=== PATIENT | male | born 1930 | race Caucasian/White ===

== ENCOUNTER 2016-08-15 12:09 | Observation (INO) ==
--- NOTE | 2016-08-15 12:31 | Emergency Department Note ---
Disposition Clinical Impression: AICD discharge Disposition: Admitted As Inpatient Condition: Good [facility]errals: [facility]Primary Care Provider[facility] - Forms: ED Satisfaction Letter Time of Disposition: 13:45 Chest Pain HPI - General Chief Complaint: ED Chest Pain Stated Complaint: AICD FIRED Time Seen by Provider: 08/15/16 12:14 Source: patient Mode of arrival: ambulatory Limitations: no limitations Vital Signs Reviewed: Yes Nursing Notes Reviewed: Yes - History of Present Illness HPI Narrative: 86 year old male with a pacemaker for the past one year due to irregular cardiac rhythms states that today he was moving mulch around and started to feel a shock in his chest ,"like he walked into 110V." Nargis said it shocked him 3 times without any symptoms of chest pain or shortness of breath. Nargis state this is a first time occurance and currently he is asymptomatic. He was first evaluated at the [facility] and had a heart rate of 130s in atrial fibrillation and a blood pressure that is 150/100s. Nargis denies nausea, vomitting, abdominal pain, or fevers. Denies chest pain and shortness of breath at this time. He states that there did not appear to be an inciting factors before he felt the shock in his chest. No preceding symptoms. Severity scale (1-10): 0 - Related Data Home Medications Medication Instructions Recorded Confirmed Allopurinol [Zyloprim] 100 mg PO DAILY 03/29/15 03/29/15 Ammonium Lactate 1 appl TP BID 03/29/15 03/29/15 Furosemide [Lasix] 40 - 80 mg PO DAILY PRN 03/29/15 03/29/15 Gabapentin [Neurontin] 300 mg PO TID 03/29/15 03/29/15 Gluc/Heladio-MSM#1/C/Hans/Leonidas/Bor 1 tab PO BID 03/29/15 03/29/15 [Osteo Bi-Flex Caplet] Lisinopril [Zestril] 40 mg PO DAILY 03/29/15 03/29/15 Metoprolol XL (24 HR) Succ [Toprol 25 mg PO DAILY 03/29/15 03/29/15 XL] Potassium Chloride 20 meq PO DAILY 03/29/15 03/29/15 Pravastatin Sodium [Pravachol] 20 mg PO QPM 03/29/15 03/29/15 Saw [place] Xtr/Zinc Picolin [Saw 1 cap PO DAILY 03/29/15 03/29/15 [place] Capsule] Tolterodine Tartrate [Detrol] 4 mg PO DAILY 03/29/15 03/29/15 Warfarin [Coumadin] 4 mg PO AD PRN 03/29/15 03/29/15 Warfarin [Coumadin] 6 mg PO QTUTH PRN 03/29/15 03/29/15 Allergies Allergy/AdvReac Type Severity Reaction Status Date / Time No Known Allergies Allergy Verified 07/30/16 15:00 Constitutional: Reports: as per HPI. Denies: fever, chills, weakness, weight change Eyes: Denies: eye pain, vision change ENT ED: Denies: ear pain, throat pain, dental pain, epistaxis, congestion Cardiovascular: Reports: as per HPI. Denies: chest pain, palpitations, dyspnea on exertion, syncope Respiratory: Denies: cough, dyspnea, wheezes, hemoptysis Gastrointestinal: Denies: abdominal pain, nausea, vomiting, diarrhea, constipation, hematemesis, melena Genitourinary: Denies: urgency, dysuria, frequency, hematuria Musculoskeletal: Denies: back pain, neck pain, arthralgia, myalgia Integumentary: Denies: rash, abrasion, lesions Neurological: Denies: headache, weakness, numbness, paresthesias, confusion, abnormal gait, vertigo Psychiatric: Denies: anxiety, depression, suicidal thoughts, homicidal thoughts , auditory hallucinations, visual hallucinations Chest Pain PMH - Past Medical History Medical history: Reports: atrial fibrillation, CHF, hypertension, renal disease Psychiatric history: Reports: no psych history - Social History Smoking Status: Former smoker Alcohol use: Reports: none Drug use: Reports: none Physical Exam - General Limitations: no limitations General appearance: alert, appears intoxicated - Head Head exam: atraumatic, normocephalic, normal inspection - Eye Eye exam: Present: normal appearance, PERRL, EOMI - Expanded Eye Exam Pupils: Left: reactive - ENT ENT exam: normal exam, normal oropharynx, mucous membranes moist - Expanded ENT Exam External ear exam: Present: normal external inspection Mouth exam: Present: normal external inspection Teeth exam: Present: normal inspection Throat exam: Present: normal inspection - Neck Neck exam: Present: normal inspection, full ROM, trachea midline - Chest Chest inspection: Present: normal inspection, symmetric chest wall rise - Respiratory Respiratory exam: Present: normal lung sounds bilaterally - Cardiovascular Cardiovascular exam: Present: normal rhythm, tachycardia, irregular rhythm, normal heart sounds - Abdominal Exam Abdominal exam: Present: soft, Non-Tender. Absent: tenderness, distention, guarding, rebound, rigidity - Extremities Exam Extremities exam: Present: normal inspection, full ROM. Absent: tenderness, pedal edema - Expanded Upper Extremity Exam Shoulder exam: Present: normal inspection, full ROM Arm exam: Present: normal inspection, full ROM Elbow exam: Present: normal inspection, full ROM Forearm/Wrist exam: Present: normal inspection, full ROM Hand exam: Present: normal inspection, full ROM Vascular exam: Normal: capillary refill, radial pulse - Expanded Lower Extremity Exam Hip/Pelvis exam: Present: normal inspection, full ROM Upper leg exam: Present: normal inspection, full ROM Knee exam: Present: normal inspection, full ROM Lower leg exam: Present: normal inspection, full ROM Ankle exam: Present: normal inspection, full ROM Foot/toe exam: Present: normal inspection, full ROM Neurovascular/Tendon exam: Absent: motor deficit, sensory deficit, tendon deficit - Back Exam Back exam: Present: normal inspection, full ROM. Absent: tenderness - Neurological Exam Neurological exam: Present: alert, oriented X3 - Expanded Neurological Exam Patient oriented to: Present: person, place, time Speech: Present: fluid speech Cranial nerves: EOM function (II, III, IV, ): Normal, facial sensation (V): Normal, facial palsy (VII): Normal, gag reflex (IX): Normal, tongue deviation ( XII): Normal Cerebellar function: normal gait Motor strength - LUE: 4/5 Motor strength - RUE: 4/5 Motor strength - LLE: 4/5 Motor strength - RLE: 4/5 Coma Scale Eye Opening: Spontaneous Coma Scale Motor Response: Obeys Commands Coma Scale Verbal Response: Oriented Coma Scale Total: 15 - Psychiatric Psychiatric exam: Present: normal affect, normal mood - Skin Skin exam: Present: warm, dry, intact, normal color Course Course Narrative: we will do a focused cardiac exam in addition to doing a med[employer] interoogation. - Reevaluation(s) Reevaluation #1: we cannot interrogate his pacemaker because it sis not a [employer] or [employer] pacemaker. WE will call the [facility] field sales consultant. Time: 12:35 Reevaluation #2: after interviewing the family. It appears patient is alwasy in atrial fibrillation and has a hr 90-110s. It appears the actual reason for his pacemaker is due to epsiodes of Vtach one year ago. His serials librarian is in [place]. Patient is asymptomatic at this time we are calling the [employer] rep. Time: 12:48 Reevaluation #3: we will consult cards about possible admission to hospital and whether we should start amniodarone or cardizem for rate control and/or prevention of Vtach runs. Time: 13:13 - Consultations Consultation #1: Dr. Suazo has accepted patient after consultation with cards. 2N please Time: 13:44 Consultation #2: discussed case with Dr. Pack and he would like patient started back on his home dose of meotroplol for therapy. Patinet will be admitted to medicine. Patinet and family are agreeable to plan. Stable. Time: 13:45 Vital Signs Temperature 98 F 08/15/16 12:12 Pulse Rate 117 08/15/16 12:12 Respiratory Rate 18 08/15/16 12:12 Blood Pressure 167/122 08/15/16 12:12 O2 Sat by Pulse Oximetry 100 08/15/16 12:12 Temperature 98 F 08/15/16 12:12 Pulse Rate 106 08/15/16 13:05 Respiratory Rate 18 08/15/16 13:05 Blood Pressure 154/98 08/15/16 13:05 O2 Sat by Pulse Oximetry 99 08/15/16 13:05 Oxygen Delivery Oxygen Delivery Room Air Chest Pain - Lab Data Lab Results 08/15/16 08/15/16 Range/Units 12:22 12:22 PT 14.0 H (9.4-12.1) Seconds INR 1.3 Troponin I 0.02 (0-0.03) ng/mL - EKG Data EKG attestation: Yes I reviewed and interpreted this EKG. EKG results narrative: atrial fibrillation with rate of 115. No STEMI. 1232
[2016-08-15 12:35] LABS: INR 1.3
--- NOTE | 2016-08-15 13:46 | Emergency Department Note ---
Disposition Clinical Impression: AICD discharge Disposition: Admitted As Inpatient Condition: Good General Adult HPI - General Chief complaint: ED Chest Pain Stated complaint: AICD FIRED Time Seen by Provider: 08/15/16 12:14 Source: patient Mode of arrival: ambulatory Limitations: no limitations - History of Present Illness Pain Scale: 0 - Related Data Home Medications Medication Instructions Recorded Confirmed Allopurinol [Zyloprim] 100 mg PO DAILY 03/29/15 08/15/16 Ammonium Lactate 1 appl TP BID 03/29/15 08/15/16 Furosemide [Lasix] 40 - 80 mg PO DAILY PRN 03/29/15 08/15/16 Gabapentin [Neurontin] 300 mg PO TID 03/29/15 08/15/16 Gluc/Heladio-MSM#1/C/Hans/Leonidas/Bor 1 tab PO BID 03/29/15 08/15/16 [Osteo Bi-Flex Caplet] Lisinopril [Zestril] 40 mg PO DAILY 03/29/15 08/15/16 Potassium Chloride 20 meq PO DAILY 03/29/15 08/15/16 Pravastatin Sodium [Pravachol] 40 mg PO QPM 03/29/15 08/15/16 Saw [place] Xtr/Zinc Picolin [Saw 1 cap PO DAILY 03/29/15 08/15/16 [place] Capsule] Tolterodine Tartrate [Detrol] 4 mg PO DAILY 03/29/15 08/15/16 Warfarin [Coumadin] 4 mg PO SUMOWEFRSA 03/29/15 08/15/16 Warfarin [Coumadin] 6 mg PO QTUTH 03/29/15 08/15/16 Aspirin/Calcium Carbonate/Mag 325 mg PO DAILY 08/15/16 08/15/16 [Aspirin Buffered 325 mg Tab] Gentamicin Oint [Garamycin] 1 appl TP BID 08/15/16 08/15/16 Hydroxyzine HCl [Hydroxyzine HCl] 25 mg PO TID 08/15/16 08/15/16 Melatonin/Pyridoxine HCl (B6) 3 mg PO HS 08/15/16 08/15/16 [Melatonin 3 mg Tablet] Metoprolol XL (24 HR) Succ [Toprol 100 mg PO BID 08/15/16 08/15/16 XL] Pantoprazole Sodium [Protonix] 40 mg PO DAILY 08/15/16 08/15/16 Allergies Allergy/AdvReac Type Severity Reaction Status Date / Time No Known Allergies Allergy Verified 07/30/16 15:00 Constitutional: Reports: as per HPI. Denies: fever, chills, weakness, weight change Eyes: Denies: eye pain, vision change ENT ED: Denies: ear pain, throat pain, dental pain, epistaxis, congestion Cardiovascular: Reports: as per HPI. Denies: chest pain, palpitations, dyspnea on exertion, syncope Respiratory: Denies: cough, dyspnea, wheezes, hemoptysis Gastrointestinal: Denies: abdominal pain, nausea, vomiting, diarrhea, constipation, hematemesis, melena Genitourinary: Denies: urgency, dysuria, frequency, hematuria Musculoskeletal: Denies: back pain, neck pain, arthralgia, myalgia Integumentary: Denies: rash, abrasion, lesions Neurological: Denies: headache, weakness, numbness, paresthesias, confusion, abnormal gait, vertigo Psychiatric: Denies: anxiety, depression, suicidal thoughts, homicidal thoughts , auditory hallucinations, visual hallucinations Past Medical History - Past Medical History Medical history: Reports: atrial fibrillation, CHF, hypertension, renal disease Psychiatric history: Reports: no psych history - Social History Smoking Status: Former smoker Smokeless Tobacco Status: No Alcohol use: Reports: none Drug use: Reports: none Physical Exam - General Limitations: no limitations General appearance: alert, appears intoxicated Course Vital Signs Temperature 98 F 08/15/16 12:12 Pulse Rate 117 08/15/16 12:12 Respiratory Rate 18 08/15/16 12:12 Blood Pressure 167/122 08/15/16 12:12 O2 Sat by Pulse Oximetry 100 08/15/16 12:12 Temperature 97.7 F 08/15/16 15:41 Pulse Rate 108 08/15/16 15:41 Respiratory Rate 16 08/15/16 15:41 Blood Pressure 190/97 08/15/16 15:41 O2 Sat by Pulse Oximetry 100 08/15/16 15:41 Oxygen Delivery Oxygen Delivery Room Air Medical Decision Making - Lab Data Result diagrams: 08/15/16 15:57 Lab Results 08/15/16 08/15/16 Range/Units 12:22 12:22 PT 14.0 H (9.4-12.1) Seconds INR 1.3 Troponin I 0.02 (0-0.03) ng/mL Attestation Statement - Attestation Attestation: I examined this patient and my medical decision-making was reviewed with the [employer] PANELBOARD OPERATOR/PA/Advanced Practice Nurse/Resident Physician. I agree with the documented findings, disposition and treatment plan as described except to the extent set forth below. [id number] time provided Patient presents as a transfer from the [facility] after his AICD fired on 3 occasions. No reports of chest pain. Patient appears in no acute distress. EKG reviewed by me. The patient has a [employer] pacemaker which will require interrogation. The patient will be admitted to the medicine service. We did consult cardiology Dr. Pack who agrees to evaluate the patient after admission
[2016-08-15] MEDS ORDERED: Metoprolol XL (24 HR) Succ 25 MG TAB.ER.24H PO SCH (14:00)
[2016-08-15] MEDS ORDERED: Naloxone 0.4 MG/ML INJ IVP PRN (14:58)
--- NOTE | 2016-08-15 15:13 | Internal Med History&Physical ---
Date of Encounter: 08/15/16 Time of Encounter: 15:07 Assessment and Plan (1) AICD discharge Current visit: Yes Status: Acute Patient reports his AICD fired 3 times today as he was pushing a wheelbarrow full of mulch. He was scheduled for an EGD today and had not eaten since midnight, but reports he took all of his medications as scheduled. He denies any preceding lightheadedness, chest pain, palpitations. Continuous manager cardiac cath [employer] contacted for interrogation of pacemaker/AICD, they will be onsite tomorrow for interrogation. Cardiology consulted (2) Afib Current visit: Yes Status: Chronic Patient with chronic atrial fibrillation, EKG shows Afib with HR of 110s. Patient had a GID bleed in March and has been holding Coumadin since then. He is on Metoprolol 100mg BID for rate control. Continue home dose of metoprolol Continuous manager cardiac cath Cardiology consulted. Qualifiers: Atrial fibrillation type: unspecified Qualified Code(s): I48.91 - Unspecified atrial fibrillation (3) Hypertension Current visit: Yes Status: Acute Patient's blood pressure running high since arrival. Hold lisinopril and lasix for kidney function. Continue home dose of metoprolol. Hydralazine 10mg IVP Q6h PRN for SBP > 180 or DBP > 100. Qualifiers: Hypertension type: essential hypertension Qualified Code(s): I10 - Essential (primary) hypertension (4) Hypokalemia Current visit: Yes Status: Acute Potassium of 3.4. 20mEq of POtassium IVP ordered. Recheck chemistry at 8pm. (5) DVT prophylaxis Current visit: Yes Status: Acute Ambulate with assistance sequential compression devices Patient had recent GI bleed in March, anti-coagulation is contraindicated. Internal Medicine - H&P: HPI Chief complaint: AICD fired Admitted From: Emergency Dept Plans for Post Hospital Care: Home History of present illness: Mr. Castanon is a 86 year old male attention, CAD, hyperlipidemia, COPD, CHF, atrial fibrillation with pacemaker AICD who presented to the emergency department today from the [place] [facility] after his AICD fired 3 times. Patient reports he was outside pushing a wheelbarrow full of mulch when he felt an electric shock 3 times. He reports he thought he stepped on an electrical wire. He did not feel any lightheadedness or syncope, chest pain, or palpitations prior to the firing of the AICD. He also felt fine without symptoms after the firing of the AICD as well. Evaluation at the [place] included a troponin which was negative at 0.02. EKG showed atrial fibrillation with heart rate of 115. Chest x-ray showed stable cardiomegaly with no acute pulmonary disease. [facility] contacted [facility] for interrogation of the pacemaker, they will be onsite tomorrow to interrogate the pacemaker. Cardiology was consulted and patient was given 25 mg of metoprolol. On exam, patient is alert and oriented, in no acute distress. Heart has a regular tachycardic rhythm. Lungs are clear bilaterally to auscultation. Past Med Surg Social Fam HX - Past Medical History Medical history: atrial fibrillation, CHF, COPD, GI bleed, hyperlipidemia, hypertension, renal disease Psychiatric history: no psych history - Past Surgical History Surgical History: knee replacement, pacemaker/AICD - Social History Smoking Status: Former smoker (remote - 7 pack year history) Smokeless Tobacco Status: No Alcohol use: none Drug use: none - Family History Mother Living Status: Age at : 84 Cause of : [place] Father Living Status: Age at : 94 Cause of : [place] Internal Medicine - H&P: Meds Allopurinol [Zyloprim] 100 mg PO DAILY 03/29/15 [History] Ammonium Lactate 1 appl TP BID 03/29/15 [History] Furosemide [Lasix] 40 - 80 mg PO DAILY PRN 03/29/15 [History] Gabapentin [Neurontin] 300 mg PO TID 03/29/15 [History] Gluc/Heladio-MSM#1/C/Hans/Leonidas/Bor [Osteo Bi-Flex Caplet] 1 tab PO BID 03/29/15 [ History] Lisinopril [Zestril] 40 mg PO DAILY 03/29/15 [History] Potassium Chloride 20 meq PO DAILY 03/29/15 [History] Pravastatin Sodium [Pravachol] 40 mg PO QPM 03/29/15 [History] Saw [place] Xtr/Zinc Picolin [Saw [place] Capsule] 1 cap PO DAILY 03/29/15 [ History] Tolterodine Tartrate [Detrol] 4 mg PO DAILY 03/29/15 [History] Warfarin [Coumadin] 4 mg PO SUMOWEFRSA 03/29/15 [History] Warfarin [Coumadin] 6 mg PO QTUTH 03/29/15 [History] Aspirin/Calcium Carbonate/Mag [Aspirin Buffered 325 mg Tab] 325 mg PO DAILY [History] Gentamicin Oint [Garamycin] 1 appl TP BID 08/15/16 [History] Hydroxyzine HCl [Hydroxyzine HCl] 25 mg PO TID 08/15/16 [History] Melatonin/Pyridoxine HCl (B6) [Melatonin 3 mg Tablet] 3 mg PO HS 08/15/16 [ History] Metoprolol XL (24 HR) Succ [Toprol XL] 100 mg PO BID 08/15/16 [History] Pantoprazole Sodium [Protonix] 40 mg PO DAILY 08/15/16 [History] Allergies No Known Allergies Allergy (Verified 07/30/16 15:00) All Systems PM: A 10-system review of systems was performed and is negative for pertinent findings except as documented above in the HPI. - Constitutional Constitutional: no chills, no fever(s), no night sweats - EENT Eyes: no change in vision, no discharge, no pain, no photophobia Ears: no ear discharge, no ear pain, no tinnitus Nose, mouth and throat: no dysphagia, no nasal discharge, no neck pain, no sore throat - Cardiovascular Cardiovascular ROS IM: no chest pain, no diaphoresis, no dyspnea, no lightheadedness, no palpitations, no syncope - Respiratory Respiratory: no cough, no dyspnea, no wheezing, no excessive phlegm production - Gastrointestinal Gastrointestinal: no abdominal pain, no diarrhea, no hematemesis, no hematochezia, no melena, no nausea, no vomiting - Musculoskeletal Musculoskeletal ROS IM: no numbness, no tingling - Integumentary Integumentary IM: no rash, no unusual bruising - Neurological Neurological ROS: no confusion, no convulsions, no focal weakness, no numbness, no tingling, no tremor(s) - Hematologic/Lymphatic Hematologic/Lymphatic: no easy bruising - Constitutional Vitals: Temp Pulse Resp BP Pulse Ox 98 F 106 18 154/98 99 08/15/16 12:12 08/15/16 13:05 08/15/16 13:05 08/15/16 13:05 08/15/16 13:05 General appearance: Present: A&O X 3, pleasant, no acute distress - Head Head exam: Present: atraumatic, normocephalic - Eye Eye exam: Present: PERRL, conjuntiva pink, sclera anicteric Pupils: Present: PERRL - Neck Neck exam general surgery: Present: supple, trachea midline. Absent: lymphadenopathy - Respiratory Respiratory exam: Present: CTAB. Absent: accessory muscle use, rales, rhonchi, wheezes - Cardiovascular Cardiovascular exam: Present: irregular rhythm, +S1, +S2, tachycardia. Absent: diastolic murmur, gallop, rubs, systolic murmur - GI/Abdominal GI/Abdominal exam: Present: normal bowel sounds, soft, no peritoneal signs. Absent: distended, tenderness - Extremities Exam Extremities exam: Present: warm, radial pulses palpable and symetrical. Absent : calf tenderness, cyanotic, pedal edema - Neurological Exam Neurological exam: Present: CN II-XII intact, oriented X3, no focal deficits. Absent: facial droop, speech deficit - Skin Skin exam: Present: dry, intact Internal Med - H&P Results - Labs CBC & Chem 7: 08/15/16 15:57 Labs: Labs from [place]: WBC 8.6 Hgb 10.4 Hct 34.7 Plt 173 All Lab Results (24 Hours) 08/15/16 08/15/16 Range/Units 12:22 12:22 PT 14.0 H (9.4-12.1) Seconds INR 1.3 Troponin I 0.02 (0-0.03) ng/mL - Diagnostic Studies Chest x-ray Additional comments: CXR from [place]: Impression: Stable cardiomegaly, No acute pulmonary disease
--- NOTE | 2016-08-15 15:25 | Cardiology Consult Note ---
Date of Encounter: 08/15/16 Time of Encounter: 15:30 Assessment and Plan (1) AICD discharge Current Visit: Yes Status: Acute Per Cardiology: Reported ICD discharge 3. St. Gianfranco device interrogation pending this evening. Troponin negative 1. Labs reviewed from [facility] with no results noted for magnesium or potassium-- currently pending. Recommend replace if needed to keep potassium greater than 4.0 and magnesium greater than 2.0. Of note earlier, this month patient was hypokalemic with potassium 3.3. Check TSH. Patient reports compliance with beta israel and has not missed any doses. Now on beta israel per primary service-- Toprolx XL 100mg PO BID and Toprol XL 25mg PO daily-- will stop the 25mg dose and give one time dose 25mg (HR 100's and SBP 150's). Reported left heart catheterization about one year ago in setting of V. tach prior to pacemaker and ICD insertion at the [facility] ([facility]). Will attempt to obtain medical records for further review. We'll check echocardiogram. (2) Afib Current Visit: Yes Status: Chronic Per Cardiology: Known history of A. fib, presumed persistent. Now A. fib with RVR in the 100s to 110s. Systolic blood pressure in the 150s. BB resumed with one time dose now. Qualifiers: Atrial fibrillation type: unspecified Qualified Code(s): I48.91 - Unspecified atrial fibrillation (3) Anemia Current Visit: Yes Status: Acute Per Cardiology: Patient with recent anemia in setting of GI bleed. Previously on Coumadin; discontinued March 2016 by the [facility]. Had pending EGD reevaluation scheduled this afternoon. Patient and family aware of increased stroke risk at this time off Coumadin. Consider addition of aspirin if able. Consider resumption of anticoagulation once further GI evaluation completed. Qualifiers: Anemia type: unspecified type Qualified Code(s): D64.9 - Anemia, unspecified Discussion w patient/family: The assessment and plan as outlined above was discussed with the patient and/or family members who expressed understanding and agreement. All questions were answered. Thank you for involving us in the care of your patient. Please call with any questions. Discussed and reviewed with Dr. Pack. History of Present Illness Consult date: 08/15/16 Requesting physician: Tisha Dior Consult reason: ICD Shocks x 3 Chief complaint: ICD shock History of present illness: Previous records reviewed: "Mr. Castanon is a 86 year old male attention, CAD, hyperlipidemia, COPD, CHF, atrial fibrillation with pacemaker AICD who presented to the emergency department today from the [facility] after his AICD fired 3 times. Patient reports he was outside pushing a wheelbarrow full of mulch when he felt an electric shock 3 times. He reports he thought he stepped on an electrical wire. He did not feel any lightheadedness or syncope, chest pain, or palpitations prior to the firing of the AICD. He also felt fine without symptoms after the firing of the AICD as well. Evaluation at the [facility] included a troponin which was negative at 0.02. EKG showed atrial fibrillation with heart rate of 115. Chest x-ray showed stable cardiomegaly with no acute pulmonary disease". Cardiology consult for ICD shock 3. Patient seen in ER with and daughter who confirm episodes noted above. They report about one year ago patient was wearing Holter due to syncope and was found to have V. tach. Reportedly had left heart catheterization at [facility] with no significant blockages and subsequent insertion of pacemaker/ ICD (St. Gianfranco). Prior to today patient denies any previous ICD shocks. He denies any chest pain, shortness of breath, palpitations, dizziness, syncope, falls. Also, prior to this event he denies any recent fever, chills, nausea, vomiting, diarrhea or cough. Denies any current bleeding or blood loss, however was noted to be anemic in March 2016 in the status post EGD with subsequent discontinuation of Coumadin. Patient was actually supposed to have repeat EGD today for reevaluation. Past Med Surg Social Fam HX - Past Medical History Attestation: Yes The following information was validated with the patient. Source: patient, old records reviewed, obtained from family Medical history: atrial fibrillation, CHF, COPD, GI bleed, hyperlipidemia, hypertension, renal disease Psychiatric history: no psych history - Past Surgical History Surgical History: knee replacement, pacemaker/AICD - Social History Smoking Status: Former smoker (remote - 7 pack year history) Smokeless Tobacco Status: No Alcohol use: none Drug use: none - Family History Mother Living Status: Age at : 84 Cause of : [place] Father Living Status: Age at : 94 Cause of : [place] Medications and Allergies Allopurinol [Zyloprim] 100 mg PO DAILY 03/29/15 [History] Ammonium Lactate 1 appl TP BID 03/29/15 [History] Furosemide [Lasix] 40 - 80 mg PO DAILY PRN 03/29/15 [History] Gabapentin [Neurontin] 300 mg PO TID 03/29/15 [History] Gluc/Heladio-MSM#1/C/Hans/Leonidas/Bor [Osteo Bi-Flex Caplet] 1 tab PO BID 03/29/15 [ History] Lisinopril [Zestril] 40 mg PO DAILY 03/29/15 [History] Potassium Chloride 20 meq PO DAILY 03/29/15 [History] Pravastatin Sodium [Pravachol] 40 mg PO QPM 03/29/15 [History] Saw [place] Xtr/Zinc Picolin [Saw [place] Capsule] 1 cap PO DAILY 03/29/15 [ History] Tolterodine Tartrate [Detrol] 4 mg PO DAILY 03/29/15 [History] Warfarin [Coumadin] 4 mg PO SUMOWEFRSA 03/29/15 [History] Warfarin [Coumadin] 6 mg PO QTUTH 03/29/15 [History] Aspirin/Calcium Carbonate/Mag [Aspirin Buffered 325 mg Tab] 325 mg PO DAILY [History] Gentamicin Oint [Garamycin] 1 appl TP BID 08/15/16 [History] Hydroxyzine HCl [Hydroxyzine HCl] 25 mg PO TID 08/15/16 [History] Melatonin/Pyridoxine HCl (B6) [Melatonin 3 mg Tablet] 3 mg PO HS 08/15/16 [ History] Metoprolol XL (24 HR) Succ [Toprol XL] 100 mg PO BID 08/15/16 [History] Pantoprazole Sodium [Protonix] 40 mg PO DAILY 08/15/16 [History] Allergies No Known Allergies Allergy (Verified 07/30/16 15:00) All Systems Review: A 10-system review of systems was performed and is negative for pertinent findings except as documented above in the HPI. - Cardiovascular Cardiovascular: as per HPI, other (shocking times 3) Physical Examination Vital Signs, Last 4 Hours Resp BP 08/15/16 15:07 18 146/109 Selected Entries 08/15/16 12:12 08/15/16 13:05 08/15/16 15:07 Temperature 98 F Pulse Rate 106 Respiratory Rate 18 Blood Pressure 146/109 O2 Sat by Pulse Oximetry 99 General: Conversant, No Apparent Distress HEENT: Atraumatic, Normocephaly, Mucus Membranes Moist Neck: No JVD, Normal carotid pulses Cardiac: No Murmur, Other (Irregularly irregular) Lungs: Normal Breath Sounds, No Wheeze, Rales, Rhonchi Neuro: Alert and responsive, No focal deficits noted Abdomen: Soft, Non-Tender Skin: No rashes noted on visualized skin Musculoskeletal: No Chest Wall Tenderness Extremities: No Edema, Normal Pulses Results Laboratory Tests 07/30/16 07/30/16 07/30/16 17:22 17:22 17:22 WBC 8.5 Hgb 8.9 L Hct 30.4 L Plt Count 156 INR Potassium 3.3 L Creatinine 1.70 H Est GFR (Non-Af Amer) 39 L Troponin I B-Natriuretic Peptide 877 H 08/15/16 08/15/16 12:22 12:22 WBC Hgb Hct Plt Count INR 1.3 Potassium Creatinine Est GFR (Non-Af Amer) Troponin I 0.02 B-Natriuretic Peptide Active Medications Allopurinol (Zyloprim) 100 mg PO DAILY [facility] Stop: 02/15/17 09:01 Gabapentin (Neurontin) 300 mg PO TID [facility] Stop: 02/14/17 21:01 Hydroxyzine HCl (Hydroxyzine) 25 mg PO TID [facility] Stop: 02/14/17 21:01 Lisinopril (Zestril) 40 mg PO DAILY [facility] PRN Reason: Protocol Stop: 02/15/17 09:01 Metoprolol Succinate (Toprol Xl) 25 mg PO DAILY [facility] Stop: 02/14/17 14:01 Last Admin: 08/15/16 14:57 Dose: 25 mg Metoprolol Succinate (Toprol Xl) 100 mg PO BID [facility] Stop: 02/14/17 21:01 Naloxone HCl (Narcan) 0.4 mg IVP Q2MIN PRN PRN Reason: Opioid Reversal Stop: 02/14/17 14:59 Omeprazole (Prilosec) 40 mg PO 0630 [facility] Stop: 02/15/17 06:31 Pharmacy Profile Note (Patient Taking Own Medication) 325 each PO DAILY [facility] Stop: 02/15/17 09:01 Pharmacy Profile Note (Patient Taking Own Medication) 3 each PO HS [facility] Stop: 02/14/17 21:01 Simvastatin (Zocor) 20 mg PO QPM [facility] Stop: 02/14/17 18:01 - EKG Interpretation EKG results cardiology: other (A. fib with RVR in the 100s to 110s on telemetry) Consult Discharge Plan - Plan [facility]errals: [facility] [Primary Care Provider] -
[2016-08-15] MEDS ORDERED: Metoprolol XL (24 HR) Succ 25 MG TAB.ER.24H PO ONE (15:38)
--- NOTE | 2016-08-15 16:11 | Event Note ---
Date of Encounter: 08/15/16 Time of Encounter: 16:02 Patient seen and examined with nurse practitioner. 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 He does not have RCV firing since please meant a year ago. Today patient had 3 ICD shocks. He denies any syncope presyncope or chest pain prior to the ICD shocks. ICD will be interrogated. ExTRA DOSE of beta israel will be given. His usual beta israel dose is 100 mg twice a day of metoprolol. Cardiovascular service has seen the patient and I have discussed the case with them. They will follow the patient after pacemaker interrogation in case it was Vtach for consideration for amiodarone. We will check his potassium and magnesium stat and follow on them. Echocardiogram will be checked. Continuous telemetry monitoring. Patient this full code. Otherwise he denies any recent illnesses that would precipitate this arrhythmia. No vomiting or diarrhea. He is not an alcoholic. No obvious as G.I. bleeding. He is compliant with all his medications except Coumadin which has been on hold awaiting endoscopies after recent GI bleed. Appreciate cardiology service recommendations.
[2016-08-15 16:17] LABS: Magnesium 1.7 mg/dL (1.6-2.6)
[2016-08-15 16:24] LABS: Calcium 9.6 mg/dL (8.6-10.8); Potassium 3.4 mEq/L (3.5-4.5)
[2016-08-15] MEDS ORDERED: Potassium Chloride 20 MEQ, Lidocaine 1% 2 ML in D5% in Water 250 ML IVPB ONE (16:37)
[2016-08-15] MEDS ORDERED: Magnesium Sulfate 2 GM in D5% in Water 100 ML IVPB ONE (16:37)
[2016-08-15 16:45] LABS: Thyroid Stimulating Hormone 0.801 mcIU/mL (0.350-4.840)
[2016-08-15] MEDS ORDERED: Magnesium Oxide 400 MG TABLET PO SCH (21:00)
[2016-08-15 21:19] LABS: Calcium 9.5 mg/dL (8.6-10.8); Potassium 4.1 mEq/L (3.5-4.5)
[2016-08-15] MEDS: Metoprolol XL (24 HR) Succ 50 MG TAB.ER.24H PO SCH (22:10)
[2016-08-15] MEDS: Gabapentin 300 MG CAPSULE PO SCH (22:10)
[2016-08-15] MEDS: hydrOXYzine pamoate 25 MG CAPSULE PO SCH (22:12)
[2016-08-16 04:57] LABS: Calcium 9.1 mg/dL (8.6-10.8); Phosphorous 3.2 mg/dL (2.3-4.7); Potassium 3.7 mEq/L (3.5-4.5)
[2016-08-16 05:03] LABS: Basophils % 0.6 %; Immature Granulocytes % 0.2 % (0-4)
[2016-08-16 05:05] LABS: Basophils # 0.1 K/mcL (0.0-0.2); Eosinophils # 0.3 K/mcL (0.0-0.6); Eosinophils % 3.3 %; Hematocrit 30.6 % (37.5-50.1); Immature Platelets 9.9 % (1.1-6.1); Lymphocytes # 1.5 K/mcL (0.6-4.6); Lymphocytes % 17.5 %; Mean Corpuscular HGB Conc 29.4 g/dL (31.6-35.5); Mean Corpuscular Hemoglobin 20.4 pg (28.0-33.3); Mean Corpuscular Volume 69.2 fL (83.0-100.0); Monocytes % 12.3 %; Neutrophils # 5.6 K/mcL (1.6-8.9); Platelet Count 164 K/mcL (140-400); Red Blood Count 4.42 M/mcL (4.19-5.50); Red Cell Distribution Width 19.8 % (11.5-14.5); Segmented Neutrophils % 66.1 %
[2016-08-16 05:36] LABS: Anisocytosis 1+ (Not Present); Hypochromasia Present (Not Present); Microcytosis Present (Not Present); Platelet Estimate Normal (Normal); Poikilocytosis 1+ (Not Present)
[2016-08-16] MEDS: Metoprolol XL (24 HR) Succ 50 MG TAB.ER.24H PO SCH (07:51)
[2016-08-16] MEDS: Gabapentin 300 MG CAPSULE PO SCH (07:51)
[2016-08-16] MEDS: hydrOXYzine pamoate 25 MG CAPSULE PO SCH ×2 (07:52→15:12)
[2016-08-16] MEDS ORDERED: CALCIUM CARBONATE PO SCH (09:00)
[2016-08-16] MEDS ORDERED: ASPIRIN PO SCH (09:00)
[2016-08-16] MEDS ORDERED: Lisinopril 20 MG TABLET PO SCH (09:00)
[2016-08-16] MEDS ORDERED: MAG PO SCH (09:00)
--- NOTE | 2016-08-16 09:51 | Cardiology Consult Note ---
Date of Encounter: 08/16/16 Time of Encounter: 09:30 Assessment and Plan (1) AICD discharge Current Visit: Yes Status: Acute Per Electrophysiology: S/p ICD discharge 3. St. Gianfranco device interrogation confirmed; shocks were for afib RVR. Troponin negative 1. Mg, K+, and TSH ok. Patient reports compliance with beta israel and has not missed any doses. On Toprol XL 100mg PO BID (home dose). Discussed and reviewed with Dr. Jayro Obregon, will increase Toprol XL to 150mg PO BID and add Digoxin 0.125mg PO daily. Reported left heart catheterization about one year ago in setting of V. tach prior to pacemaker and ICD insertion at the [facility] ([facility]). Attempting to retrieve medical records. Echo pending. (2) Afib Current Visit: Yes Status: Chronic Per Electrophysiology: Known history of A. fib for "many years", presumed persistent. Now A. fib 80's - 90's. Systolic blood pressure in the 130s. rate control strategy as outlined above. Qualifiers: Atrial fibrillation type: unspecified Qualified Code(s): I48.91 - Unspecified atrial fibrillation (3) Anemia Current Visit: Yes Status: Chronic Per Electrophysiology: Patient with recent anemia in setting of GI bleed. Previously on Coumadin; discontinued March 2016 by the [facility]. Had pending EGD reevaluation scheduled this afternoon. Patient and family aware of increased stroke risk at this time off Coumadin. Now on asa. Consider resumption of anticoagulation once further GI evaluation completed. Qualifiers: Anemia type: unspecified type Qualified Code(s): D64.9 - Anemia, unspecified Discussion w patient/family: The assessment and plan as outlined above was discussed with the patient and/or family members who expressed understanding and agreement. All questions were answered. Thank you for involving us in the care of your patient. Please call with any questions. History of Present Illness Consult date: 08/16/16 Requesting physician: Jhonny Pack Consult reason: ICD Shocks, Hx of VT, Afib Chief complaint: ICD Shock History of present illness: ELECTROPHYSIOLOGY CONSULT: Previous records reviewed: "Mr. Castanon is a 86 year old male attention, CAD, hyperlipidemia, COPD, CHF, atrial fibrillation with pacemaker AICD who presented to the emergency department today from the [facility] after his AICD fired 3 times. Patient reports he was outside pushing a wheelbarrow full of mulch when he felt an electric shock 3 times. He reports he thought he stepped on an electrical wire. He did not feel any lightheadedness or syncope, chest pain, or palpitations prior to the firing of the AICD. He also felt fine without symptoms after the firing of the AICD as well. Evaluation at the [facility] included a troponin which was negative at 0.02. EKG showed atrial fibrillation with heart rate of 115. Chest x-ray showed stable cardiomegaly with no acute pulmonary disease". Cardiology consult for ICD shock 3. Patient was seen in ER with and daughter who confirmed episodes noted above. They reported about one year ago patient was wearing Holter due to syncope and was found to have V. tach. Reportedly had left heart catheterization at [facility] with no significant blockages and subsequent insertion of pacemaker/ICD (St. Gianfranco). Prior to today patient denies any previous ICD shocks. He denies any chest pain, shortness of breath, palpitations, dizziness, syncope, falls. Also, prior to this event he denies any recent fever, chills, nausea, vomiting, diarrhea or cough. Denies any current bleeding or blood loss, however was noted to be anemic in March 2016 in the status post EGD with subsequent discontinuation of Coumadin. Patient was actually supposed to have repeat EGD yesterday for reevaluation. Patient denies any CP, SOB, Palps over night. Denies any other shocks. Reports "did not sleep all night because of fear of getting shocked again". Past Med Surg Social Fam HX - Past Medical History Medical history: atrial fibrillation, CHF, COPD, GI bleed, hyperlipidemia, hypertension, renal disease Psychiatric history: no psych history - Past Surgical History Surgical History: knee replacement, pacemaker/AICD - Social History Smoking Status: Former smoker (remote - 7 pack year history) Smokeless Tobacco Status: No Alcohol use: none Drug use: none - Family History Mother Living Status: Age at : 84 Cause of : [place] Father Living Status: Age at : 94 Cause of : [place] Medications and Allergies Allopurinol [Zyloprim] 100 mg PO DAILY 03/29/15 [History] Ammonium Lactate 1 appl TP BID 03/29/15 [History] Furosemide [Lasix] 40 - 80 mg PO DAILY PRN 03/29/15 [History] Gabapentin [Neurontin] 300 mg PO TID 03/29/15 [History] Gluc/Heladio-MSM#1/C/Hans/Leonidas/Bor [Osteo Bi-Flex Caplet] 1 tab PO BID 03/29/15 [ History] Lisinopril [Zestril] 40 mg PO DAILY 03/29/15 [History] Potassium Chloride 20 meq PO DAILY 03/29/15 [History] Pravastatin Sodium [Pravachol] 40 mg PO QPM 03/29/15 [History] Saw [place] Xtr/Zinc Picolin [Saw [place] Capsule] 1 cap PO DAILY 03/29/15 [ History] Tolterodine Tartrate [Detrol] 4 mg PO DAILY 03/29/15 [History] Warfarin [Coumadin] 4 mg PO SUMOWEFRSA 03/29/15 [History] Warfarin [Coumadin] 6 mg PO QTUTH 03/29/15 [History] Aspirin/Calcium Carbonate/Mag [Aspirin Buffered 325 mg Tab] 325 mg PO DAILY [History] Gentamicin Oint [Garamycin] 1 appl TP BID 08/15/16 [History] Hydroxyzine HCl [Hydroxyzine HCl] 25 mg PO TID 08/15/16 [History] Melatonin/Pyridoxine HCl (B6) [Melatonin 3 mg Tablet] 3 mg PO HS 08/15/16 [ History] Metoprolol XL (24 HR) Succ [Toprol XL] 100 mg PO BID 08/15/16 [History] Pantoprazole Sodium [Protonix] 40 mg PO DAILY 08/15/16 [History] Allergies No Known Allergies Allergy (Verified 07/30/16 15:00) All Systems Review: A 10-system review of systems was performed and is negative for pertinent findings except as documented above in the HPI. - Cardiovascular Cardiovascular: as per HPI Physical Examination Vital Signs, Last 4 Hours Temp Pulse Resp BP Pulse Ox 08/16/16 07:45 91 08/16/16 07:02 98.2 F 92 16 137/91 97 General: Conversant, No Apparent Distress HEENT: Atraumatic, Normocephaly, Mucus Membranes Moist Neck: No JVD, Normal carotid pulses Cardiac: No Murmur, Other (Irregularly irregular) Lungs: Normal Breath Sounds, No Wheeze, Rales, Rhonchi Neuro: Alert and responsive, No focal deficits noted Abdomen: Soft, Non-Tender Skin: No rashes noted on visualized skin Extremities: No Edema, Normal Pulses Results 08/16/16 04:04 08/16/16 04:04 Lab Results Laboratory Tests 08/15/16 08/15/16 08/15/16 12:22 15:57 15:57 Potassium 3.4 L Magnesium Troponin I 0.02 TSH 0.801 08/15/16 08/16/16 20:45 04:04 Potassium 4.1 3.7 Magnesium 2.0 Troponin I TSH Active Medications Allopurinol (Zyloprim) 100 mg PO DAILY [facility] Stop: 02/15/17 09:01 Last Admin: 08/16/16 07:52 Dose: 100 mg Aspirin (Aspirin Ec) 325 mg PO DAILY [facility] Stop: 02/15/17 11:01 Digoxin (Lanoxin) 0.125 mg PO DAILY [facility] Stop: 02/15/17 11:01 Gabapentin (Neurontin) 300 mg PO TID [facility] Stop: 02/14/17 21:01 Last Admin: 08/16/16 07:51 Dose: 300 mg Hydralazine HCl (Hydralazine) 10 mg IVP Q6HR PRN PRN Reason: Hypertension Stop: 02/14/17 16:40 Last Admin: 08/15/16 22:10 Dose: 10 mg Hydroxyzine Pamoate (Hydroxyzine Pamoate) 25 mg PO TID [facility] Stop: 02/14/17 21:01 Last Admin: 08/16/16 07:52 Dose: 25 mg Metoprolol Succinate (Toprol Xl) 50 mg PO ONCE ONE Stop: 08/16/16 10:52 Metoprolol Succinate (Toprol Xl) 150 mg PO BID [facility] Stop: 02/15/17 21:01 Naloxone HCl (Narcan) 0.4 mg IVP Q2MIN PRN PRN Reason: Opioid Reversal Stop: 02/14/17 14:59 Omeprazole (Prilosec) 40 mg PO 0630 [facility] Stop: 02/15/17 06:31 Last Admin: 08/16/16 05:37 Dose: 40 mg Pharmacy Profile Note (Patient Taking Own Medication) 3 each PO HS [facility] Stop: 02/14/17 21:01 Last Admin: 08/15/16 22:12 Dose: Not Given Potassium Chloride (Potassium Chloride) 20 meq PO DAILY [facility] Stop: 02/15/17 09:01 Last Admin: 08/16/16 07:52 Dose: 20 meq Simvastatin (Zocor) 20 mg PO QPM [facility] Stop: 02/14/17 18:01 Last Admin: 08/15/16 17:48 Dose: 20 mg - Imaging and Cardiology Echo: pending - EKG Interpretation EKG results cardiology: other (24 hr tele reviewed with avg HR 96, afib, no significant events noted) Consult Discharge Plan - Plan [facility]errals: [facility] [Primary Care Provider] -
[2016-08-16] MEDS ORDERED: Metoprolol XL (24 HR) Succ 50 MG TAB.ER.24H PO ONE (10:51)
[2016-08-16] MEDS ORDERED: Aspirin Enteric Coated 325 MG Tablet PO SCH ×2 (11:00)
[2016-08-16] MEDS ORDERED: *HR* Digoxin 0.125 MG TABLET PO SCH (11:00)
--- NOTE | 2016-08-16 11:38 | Electrocardiograph Report ---
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
--- NOTE | 2016-08-16 11:47 | ECHO - Doppler Report ---
Echocardiogram Name: Sha Castanon Date of Study: 08/16/2016 Date: 1930 Ht: 70.0 in Medical Record#: [id number] Age: 86 Wt: 200.0 lb Gender: Male BSA: 2.09 Order #: [id number] Location: [facility] Room #: 2N01 Reading Physician: Raffi Stevens MD, [facility] Asset Administrator: Dennis Arias Ordering Physician: Javi Clay CNP Primary Physician: None Indications: ICD shock Impressions: Normal LV systolic function, LVEF 55%. Atypical septal motion consistent with bundle branch block. Indeterminate diastolic function due to atrial fibrillation. Moderately dilated right ventricle with normal systolic function. A device lead was visualized in the right atrium and right ventricle. Severely dilated left atrium. Severely dilated right atrium. Mild mitral regurgitation. Moderate tricuspid regurgitation. Moderate-severe pulmonary hypertension. Estimated RVSP = 60 mmHg. Left Ventricular Wall Motion: Rest Echo Findings All wall segments showed normal motion. Findings: Study Quality * Suboptimal echo windows. ECG Findings * Atrial fibrillation. Left Ventricle * Normal LV systolic function, LVEF 55%. * Atypical septal motion consistent with bundle branch block. * Normal LV chamber size and wall thickness. * Indeterminate diastolic function due to atrial fibrillation. Right Ventricle * Moderately dilated right ventricle with normal systolic function. Device lead * A device lead was visualized in the right atrium and right ventricle. Left Atrium * Severely dilated left atrium. Right Atrium * Severely dilated right atrium. Aorta * Normally sized aortic root. Pericardium * There is no pericardial effusion present. IVC * The IVC is not dilated. Aortic Valve * Trileaflet aortic valve. * Moderately sclerotic aortic valve leaflets. * No aortic stenosis. * Trace aortic regurgitation. Mitral Valve * Mildly thickened/calcified mitral valve leaflets. * No mitral stenosis. * Mild mitral regurgitation. Tricuspid Valve * Normal tricuspid valve structure. * No tricuspid stenosis. * Moderate tricuspid regurgitation. * Moderate-severe pulmonary hypertension. Estimated RVSP = 60 mmHg. Pulmonic Valve * Pulmonic valve not well visualized. * No pulmonic stenosis. * No pulmonic regurgitation. History Hypertension Hypercholesteremia Pacer/ICD Implant Measurements: BP: 135/ 86 2D Normal Values RVIDd: 4.50 cm IVSd: 1.00 cm 0.6 - 1.0 cm LVIDd: 4.60 cm 3.7 - 5.6 cm LVPWd: .90 cm 0.6 - 1.1 cm LVIDs: 3.10 cm 1.5 - 3.6 cm AO: 3.20 cm < 4.0 cm LA volume: 90 Tricuspid Valve TV Regurg Peak Grad: 55.00mmHg TV Regurg Peak Chad: 3.70m/sec Updated by Raffi Stevens MD, [facility] on 08/16/2016 11:42:59 AM electronically signed on 08/16/2016 11:43:27 AM with status of Final Wall Motion Valenzuela: 1=Normal, 2=Hypokinesis, 3=Akinesis, 4=Dyskinesis, 5=Aneurysmal, 6=Hyperkinetic, X=Not Visualized (Blank)=Missing
[2016-08-16] MEDS ORDERED: Aspirin Enteric Coated 81 MG Tablet PO SCH (12:15)
--- NOTE | 2016-08-16 13:37 | Electrocardiograph Report ---
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
[2016-08-16 16:06] VITALS: BP 111/70
--- NOTE | 2016-08-16 16:15 | Discharge Summary ---
Date of Encounter: 08/16/16 Time of Encounter: 16:13 - Discharge Diagnosis (1) AICD discharge Priority: Primary Status: Acute (2) CAD (coronary artery disease) Priority: Secondary Status: Chronic Qualifiers: Coronary Disease-Associated Artery/Lesion type: [place] artery [place] vs. transplanted heart: [place] heart Associated angina: without angina Qualified Code(s): I25.10 - Atherosclerotic heart disease of [place] coronary artery without angina pectoris (3) CHF (congestive heart failure) Priority: Secondary Status: Chronic Qualifiers: Congestive heart failure type: systolic Congestive heart failure chronicity : chronic Qualified Code(s): I50.22 - Chronic systolic (congestive) heart failure (4) COPD (chronic obstructive pulmonary disease) Priority: Secondary Status: Chronic Qualifiers: COPD type: unspecified COPD Qualified Code(s): J44.9 - Chronic obstructive pulmonary disease, unspecified (5) CKD (chronic kidney disease) Priority: Secondary Status: Chronic Qualifiers: Chronic kidney disease stage: stage 3 (moderate) Qualified Code(s): N18.3 - Chronic kidney disease, stage 3 (moderate) (6) Afib Priority: Secondary Status: Chronic Qualifiers: Atrial fibrillation type: chronic Qualified Code(s): I48.2 - Chronic atrial fibrillation (7) Hypertension Priority: Secondary Status: Chronic Qualifiers: Hypertension type: essential hypertension Qualified Code(s): I10 - Essential (primary) hypertension - Discharge Medications Prescriptions: Digoxin [Lanoxin] 0.125 mg PO DAILY #30 tablet Home Medications: Allopurinol [Zyloprim] 100 mg PO DAILY 03/29/15 [History] Ammonium Lactate 1 appl TP BID 03/29/15 [History] Furosemide [Lasix] 40 - 80 mg PO DAILY PRN 03/29/15 [History] Gabapentin [Neurontin] 300 mg PO TID 03/29/15 [History] Gluc/Heladio-MSM#1/C/Hans/Leonidas/Bor [Osteo Bi-Flex Caplet] 1 tab PO BID 03/29/15 [ History] Lisinopril [Zestril] 40 mg PO DAILY 03/29/15 [History] Potassium Chloride 20 meq PO DAILY 03/29/15 [History] Pravastatin Sodium [Pravachol] 40 mg PO QPM 03/29/15 [History] Saw [place] Xtr/Zinc Picolin [Saw [place] Capsule] 1 cap PO DAILY 03/29/15 [ History] Tolterodine Tartrate [Detrol] 4 mg PO DAILY 03/29/15 [History] Aspirin/Calcium Carbonate/Mag [Aspirin Buffered 325 mg Tab] 325 mg PO DAILY [History] Gentamicin Oint [Garamycin] 1 appl TP BID 08/15/16 [History] Hydroxyzine HCl 25 mg PO TID 08/15/16 [History] Melatonin/Pyridoxine HCl (B6) [Melatonin 3 mg Tablet] 3 mg PO HS 08/15/16 [ History] Pantoprazole Sodium [Protonix] 40 mg PO DAILY 08/15/16 [History] Digoxin [Lanoxin] 0.125 mg PO DAILY #30 tablet 08/16/16 [Rx] Metoprolol XL (24 HR) Succ [Toprol Xl] 150 mg PO BID #60 08/16/16 [Rx] Allergies/Adverse Reactions: Allergies No Known Allergies Allergy (Verified 07/30/16 15:00) Procedures/tests Complete & Pending: Procedures Performed prior 72 hours Category Date Time Status ECG 12 lead ECG [ECG] AM 0600 Y 08/16/16 06:00 Completed EV echocardiogram Routine Y 08/16/16 15:36 Completed Date of admission: 08/15/16 13:52 [facility] care physician: [facility] Consults: 08/16/16 10:51 Consult to Electrophysiology (EP) [CONS] Routine Consulting Provider: Electrophysiology Hilda Reason for Consult: ICD shock, afib, hx VT, per Dr. Pack Call Completed: Yes 08/16/16 11:40 Consult to Electrophysiology (EP) [CONS] Routine Consulting Provider: Electrophysiology Hilda Reason for Consult: VT Call Completed: Yes Discharging clinician: Bridget Powell Anticipated date of discharge: 08/16/16 - Patient Status Disposition: Home, Self-Care Condition: Good Functional capacity at discharge: independent ambulation Overall status at discharge: patient is progressing back to baseline - Discharge Instructions Instructions: Atrial Fibrillation (DC), Implantable Cardioverter Defibrillator (DC) Follow Up With: Javi Clay ELEVATOR CONDUCTOR [Advanced Practice Nurse] - 09/12/16 1:00 pm [facility],PCP [Primary Care Provider] - - Diet and Activity Activity: resume usual activities as tolerated Diet: low fat, low cholesterol, low salt diet Hospital course: Mr. Castanon is a 86 year old male with history of atrial fibrillation, CHF, chronic kidney disease, who was admitted after receiving 3 shocks by his ICD. Initial labs and EKG done in the emergency room showed no acute abnormality. Cardiology was consulted and patient underwent ICD interrogation, which showed that shocks were secondary to atrial fibrillation with rapid ventricular response. Subsequently, his ICD settings have been modified to receive shock only in the event of true V. tach or V. fib. He has been started on digoxin and home dose of metoprolol has been increased to 150 mg twice daily. Echocardiogram was completed which shows preserved ejection fraction with moderately dilated right ventricle with normal function, mild MR, moderate TR, moderate to severe pulmonary hypertension and no segmental wall motion abnormalities. He is reevaluated by cardiology, remains hemodynamically stable and wishes to be discharged home. He is medically stable for discharge with outpatient follow -up. - Time Spent with Patient Total time spent providing and/or coordinating discharge services: Greater than 30 minutes (45 min) - Constitutional Vitals: Temp Pulse Resp BP Pulse Ox 98.2 F 90 18 111/70 97 08/16/16 15:30 08/16/16 15:30 08/16/16 15:30 08/16/16 15:30 08/16/16 15:30 General appearance: Present: A&O X 3, answers questions appropriately - Respiratory Respiratory exam: Present: CTAB. Absent: accessory muscle use, rales, rhonchi, wheezes - Cardiovascular Cardiovascular exam: Present: irregular rhythm, +S1, +S2. Absent: diastolic murmur, gallop, rubs, systolic murmur - VTE Documentation of Mechanical Device: Graduated compression elastic hosiery
[2016-08-16] MEDS ORDERED: Gabapentin 300 MG CAPSULE PO SCH (21:00)
[2016-08-16] MEDS ORDERED: Melatonin 3 MG TABLET PO SCH (21:00)
[2016-08-16] MEDS ORDERED: Metoprolol XL (24 HR) Succ 50 MG TAB.ER.24H PO SCH (21:00)
== END 2016-08-16 18:02 | disposition home or self-care (01) ==
LOC: EMEROO 12:09 → 2NNU 12:09
PROVIDERS: ADMIT Nurse Practitioner Family; ATTEND Internal Medicine

== ENCOUNTER 2016-09-04 13:24 | Inpatient (IN) ==
--- NOTE | 2016-09-04 15:10 | Emergency Department Note ---
Disposition Clinical Impression: CHF (congestive heart failure), COPD (chronic obstructive pulmonary disease), CAD (coronary artery disease), Anemia, Hypertension, Afib, Frail elderly, Weight gain, Dyspnea on exertion Disposition: Admitted As Inpatient Referrals: [facility],PCP [Primary Care Provider] - Forms: ED Satisfaction Letter General Adult HPI - General Chief complaint: ED Shortness of Breath/Dyspnea Stated complaint: sent from [place] putting on weight (CHF) Time Seen by Provider: 09/04/16 15:04 Source: patient, family Limitations: no limitations - History of Present Illness HPI Narrative: 86-year-old male reports to the ED from home with his family members, the patient was recently admitted to the [facility] for CHF. He is on a telemetry monitoring program at home, they noticed that he had gained 9 pounds in or days, the [place] providers were concerned and recommended he come to the ED for further evaluation. The patient recently had an EGD which showed no GI bleeding, there was concern for previous bleeding so the patient was taken off Coumadin. He has a history of atrial fibrillation and a cardiac defibrillator. The defibrillator has not gone off in the last few days and he has had no chest pain. There is no history of bloody or black material in the stool. No abdominal pain he has had some leg swelling he has no previous history of DVT PE or cancer. He has not been coughing up blood. There is no history of fever cough runny nose or sore throat. No headache. No trouble moving the arms or legs independently. No falls or injuries. No rashes. The patient does have significant shortness of breath particularly with exertion. There is concern for CHF exacerbation, the patient came in for concerns regarding fluid buildup. Pain Scale: 0 - Related Data Home Medications Medication Instructions Recorded Confirmed Allopurinol [Zyloprim] 100 mg PO QAM 03/29/15 09/04/16 Furosemide [Lasix] 40 mg PO BID PRN 03/29/15 09/04/16 Gabapentin [Neurontin] 300 mg PO TID 03/29/15 09/04/16 Gluc/Heladio-MSM#1/C/Hans/Leonidas/Bor 1 tab PO QAM 03/29/15 09/04/16 [Osteo Bi-Flex Caplet] Pravastatin Sodium [Pravachol] 20 mg PO HS 03/29/15 09/04/16 Hydroxyzine HCl 25 mg PO TID 08/15/16 09/04/16 Melatonin/Pyridoxine HCl (B6) 3 mg PO HS 08/15/16 09/04/16 [Melatonin 3 mg Tablet] Pantoprazole Sodium [Protonix] 40 mg PO DAILY 08/15/16 09/04/16 Aspirin Enteric Coated [Aspirin EC] 81 mg PO DAILY 09/04/16 09/04/16 Digoxin [Lanoxin] 0.125 mg PO QAM 09/04/16 09/04/16 Lisinopril [Zestril] 10 mg PO BID 09/04/16 09/04/16 Methylphenidate HCl [Concerta] 18 mg PO 09/04/16 Metoprolol XL (24 HR) Succ [Toprol 125 mg PO BID 09/04/16 09/04/16 Xl] Potassium Chloride [Klor-Con 10] 10 meq PO BID 09/04/16 09/04/16 Tolterodine LA (24 HR) [Detrol LA] 4 mg PO HS 09/04/16 09/04/16 Allergies Allergy/AdvReac Type Severity Reaction Status Date / Time No Known Allergies Allergy Verified 09/04/16 13:47 All systems ED: reviewed and negative except as stated. Past Medical History - Past Medical History Medical history: Reports: atrial fibrillation, CHF, COPD, GI bleed, hyperlipidemia, hypertension, renal disease Surgical history: Reports: knee replacement, pacemaker/AICD Psychiatric history: Reports: no psych history - Social History Smoking Status: Former smoker Smokeless Tobacco Status: No Alcohol use: Reports: none Drug use: Reports: none Physical Exam - General Limitations: no limitations General appearance: alert, in no apparent distress - Head Head exam: atraumatic, normocephalic, normal inspection - Eye Eye exam: Present: normal appearance, PERRL, EOMI. Absent: scleral icterus, conjunctival injection, miosis, mydriasis - ENT ENT exam: normal exam, normal oropharynx, mucous membranes moist, TM's normal bilaterally, normal external ear exam - Neck Neck exam: Present: normal inspection, full ROM, trachea midline - Chest Chest inspection: Present: symmetric chest wall rise. Absent: tenderness - Respiratory Respiratory exam: Present: normal lung sounds bilaterally. Absent: respiratory distress, wheezes, accessory muscle use, prolonged expiratory phase - Cardiovascular Cardiovascular exam: Present: regular rate, irregular rhythm - Abdominal Exam Abdominal exam: Present: soft, Non-Tender, normal bowel sounds. Absent: tenderness, distention, guarding, rebound, rigidity - Extremities Exam Extremities exam: Present: full ROM, normal capillary refill, pedal edema. Absent: normal inspection, tenderness, joint swelling, calf tenderness - Expanded Lower Extremity Exam Lower leg exam: Absent: Homans' sign Neurovascular/Tendon exam: Present: normal capillary refill. Absent: pulse deficit, motor deficit, sensory deficit, tendon deficit, extremity cold to touch , pallor - Back Exam Back exam: Present: normal inspection, full ROM. Absent: tenderness, CVA tenderness (R), CVA tenderness (L), vertebral tenderness - Neurological Exam Neurological exam: Present: alert, oriented X3, CN II-XII intact. Absent: motor sensory deficit - Psychiatric Psychiatric exam: Present: normal affect, normal mood - Skin Skin exam: Present: warm, dry, intact, normal color. Absent: rash, cyanosis, diaphoresis, erythema, pallor, mottled Course Vital Signs Temperature 97.6 F 09/04/16 13:43 Pulse Rate 84 09/04/16 13:43 Respiratory Rate 22 09/04/16 13:43 Blood Pressure 119/65 09/04/16 13:43 O2 Sat by Pulse Oximetry 95 09/04/16 13:43 Temperature 97.6 F 09/04/16 13:43 Pulse Rate 87 09/04/16 18:26 Respiratory Rate 16 09/04/16 18:26 Blood Pressure 141/92 09/04/16 18:26 O2 Sat by Pulse Oximetry 96 09/04/16 18:26 Oxygen Delivery Oxygen Delivery Room Air Medical Decision Making - [facility] Narrative Medical decision making narrative: The patient is elderly with multiple comorbidities, he has a history of CAD, COPD, A. Fib, CHF, diabetes, hypertension, he is significantly anemic, has gained 9 pounds in the last several days and is dyspneic on exertion, his creatinine is also rising indicating worsening renal function. The patient's family members tell me the patient is so weak on exertion he cannot even get up and go to the bathroom. There is concern for weakness in the legs and potential fall risk. Based on his age, multiple medical issues, and symptomatic CHF and/or anemia, I thought it would be appropriate to admit the patient hospital for further treatment. The patient is currently stable. Lasix was given in the ED. - Lab Data Lab results reviewed: Yes I reviewed the patient's lab results. Result diagrams: 09/04/16 15:19 09/04/16 15:19 Lab Results 09/04/16 09/04/16 09/04/16 Range/Units 13:37 13:37 15:19 WBC 9.0 (4.3-11.1) K/mcL RBC 4.40 (4.19-5.50) M/mcL Hgb 8.8 L (12.9-16.9) g/dL Hct 31.6 L (37.5-50.1) % MCV 71.8 L (83.0-100.0) fL MCH 20.0 L (28.0-33.3) pg MCHC 27.8 L (31.6-35.5) g/dL RDW 20.2 H (11.5-14.5) % Plt Count 162 (140-400) K/mcL MPV TNP Immature Gran % 0.3 (0-4) % Seg Neutrophils % 71.0 % Lymphocytes % 14.6 % Monocytes % 10.5 % Eosinophils % 3.0 % Basophils % 0.6 % Neutrophils # 6.4 (1.6-8.9) K/mcL Lymphocytes # 1.3 (0.6-4.6) K/mcL Monocytes # 1.0 (0.0-1.3) K/mcL Eosinophils # 0.3 (0.0-0.6) K/mcL Basophils # 0.1 (0.0-0.2) K/mcL Platelet Estimate Normal (Normal) Hypochromasia Present A (Not Present) Poikilocytosis 1+ A (Not Present) Anisocytosis 1+ A (Not Present) Ovalocytes 1+ A (Not Present) PT (9.4-12.1) Seconds INR APTT (26.0-36.0) Seconds Sodium (136-145) mEq/L Potassium (3.5-4.5) mEq/L Chloride (98-109) mEq/L Carbon Dioxide (19-29) mEq/L BUN (8-26) mg/dL Creatinine (0.72-1.25) mg/dL Est GFR ( Amer) (> 60) Est GFR (Non-Af Amer) (> 60) BUN/Creatinine Ratio (6-26) Glucose (70-99) mg/dL Calculated Osmolality (280-300) Lactic Acid 1.8 (0.5-2.2) mmol/L Calcium (8.6-10.8) mg/dL Total Bilirubin (0.2-1.2) mg/dL Direct Bilirubin (0.0-0.5) mg/dL Indirect Bilirubin (0.0-1.2) mg/dL AST (5-34) Units/L ALT (0-55) Units/L Alkaline Phosphatase (38-126) Units/L Troponin I (0-0.03) ng/mL C-Reactive Protein (Less than 5) mg/L B-Natriuretic Peptide (0-100) pg/mL Serum Total Protein (6.0-8.3) g/dL Albumin (3.5-5.0) g/dL Globulin (2.4-3.5) g/dL Albumin/Globulin Ratio (1.1-2.2) Digoxin (0.8-2.0) ng/mL Blood Type A POSITIVE Antibody Screen NEGATIVE 09/04/16 09/04/16 09/04/16 Range/Units 15:19 15:19 15:19 WBC (4.3-11.1) K/mcL RBC (4.19-5.50) M/mcL Hgb (12.9-16.9) g/dL Hct (37.5-50.1) % MCV (83.0-100.0) fL MCH (28.0-33.3) pg MCHC (31.6-35.5) g/dL RDW (11.5-14.5) % Plt Count (140-400) K/mcL MPV Immature Gran % (0-4) % Seg Neutrophils % % Lymphocytes % % Monocytes % % Eosinophils % % Basophils % % Neutrophils # (1.6-8.9) K/mcL Lymphocytes # (0.6-4.6) K/mcL Monocytes # (0.0-1.3) K/mcL Eosinophils # (0.0-0.6) K/mcL Basophils # (0.0-0.2) K/mcL Platelet Estimate (Normal) Hypochromasia (Not Present) Poikilocytosis (Not Present) Anisocytosis (Not Present) Ovalocytes (Not Present) PT (9.4-12.1) Seconds INR APTT (26.0-36.0) Seconds Sodium 142 (136-145) mEq/L Potassium 4.2 (3.5-4.5) mEq/L Chloride 103 (98-109) mEq/L Carbon Dioxide 30 H (19-29) mEq/L BUN 31 H (8-26) mg/dL Creatinine 2.07 H (0.72-1.25) mg/dL Est GFR ( Amer) 37 L (> 60) Est GFR (Non-Af Amer) 31 L (> 60) BUN/Creatinine Ratio 15 (6-26) Glucose 90 (70-99) mg/dL Calculated Osmolality 300 (280-300) Lactic Acid (0.5-2.2) mmol/L Calcium 9.4 (8.6-10.8) mg/dL Total Bilirubin 1.0 (0.2-1.2) mg/dL Direct Bilirubin 0.5 (0.0-0.5) mg/dL Indirect Bilirubin 0.5 (0.0-1.2) mg/dL AST 19 (5-34) Units/L ALT 14 (0-55) Units/L Alkaline Phosphatase 108 (38-126) Units/L Troponin I 0.03 (0-0.03) ng/mL C-Reactive Protein 14 H (Less than 5) mg/L B-Natriuretic Peptide 626 H (0-100) pg/mL Serum Total Protein 7.1 (6.0-8.3) g/dL Albumin 3.5 (3.5-5.0) g/dL Globulin 3.6 H (2.4-3.5) g/dL Albumin/Globulin Ratio 1.0 L (1.1-2.2) Digoxin 1.0 (0.8-2.0) ng/mL Blood Type Antibody Screen 09/04/16 Range/Units 15:19 WBC (4.3-11.1) K/mcL RBC (4.19-5.50) M/mcL Hgb (12.9-16.9) g/dL Hct (37.5-50.1) % MCV (83.0-100.0) fL MCH (28.0-33.3) pg MCHC (31.6-35.5) g/dL RDW (11.5-14.5) % Plt Count (140-400) K/mcL MPV Immature Gran % (0-4) % Seg Neutrophils % % Lymphocytes % % Monocytes % % Eosinophils % % Basophils % % Neutrophils # (1.6-8.9) K/mcL Lymphocytes # (0.6-4.6) K/mcL Monocytes # (0.0-1.3) K/mcL Eosinophils # (0.0-0.6) K/mcL Basophils # (0.0-0.2) K/mcL Platelet Estimate (Normal) Hypochromasia (Not Present) Poikilocytosis (Not Present) Anisocytosis (Not Present) Ovalocytes (Not Present) PT 14.6 H (9.4-12.1) Seconds INR 1.3 APTT 31.4 (26.0-36.0) Seconds Sodium (136-145) mEq/L Potassium (3.5-4.5) mEq/L Chloride (98-109) mEq/L Carbon Dioxide (19-29) mEq/L BUN (8-26) mg/dL Creatinine (0.72-1.25) mg/dL Est GFR ( Amer) (> 60) Est GFR (Non-Af Amer) (> 60) BUN/Creatinine Ratio (6-26) Glucose (70-99) mg/dL Calculated Osmolality (280-300) Lactic Acid (0.5-2.2) mmol/L Calcium (8.6-10.8) mg/dL Total Bilirubin (0.2-1.2) mg/dL Direct Bilirubin (0.0-0.5) mg/dL Indirect Bilirubin (0.0-1.2) mg/dL AST (5-34) Units/L ALT (0-55) Units/L Alkaline Phosphatase (38-126) Units/L Troponin I (0-0.03) ng/mL C-Reactive Protein (Less than 5) mg/L B-Natriuretic Peptide (0-100) pg/mL Serum Total Protein (6.0-8.3) g/dL Albumin (3.5-5.0) g/dL Globulin (2.4-3.5) g/dL Albumin/Globulin Ratio (1.1-2.2) Digoxin (0.8-2.0) ng/mL Blood Type Antibody Screen - Radiology Data Radiology results reviewed: Yes I reviewed the patient's radiology results.
[2016-09-04 15:28] LABS: Basophils # 0.1 K/mcL (0.0-0.2); Basophils % 0.6 %; Eosinophils # 0.3 K/mcL (0.0-0.6); Hematocrit 31.6 % (37.5-50.1); Hemoglobin 8.8 g/dL (12.9-16.9); Immature Granulocytes % 0.3 % (0-4); Lymphocytes # 1.3 K/mcL (0.6-4.6); Lymphocytes % 14.6 %; Mean Corpuscular HGB Conc 27.8 g/dL (31.6-35.5); Mean Corpuscular Volume 71.8 fL (83.0-100.0); Monocytes % 10.5 %; Neutrophils # 6.4 K/mcL (1.6-8.9); Platelet Count 162 K/mcL (140-400); Red Cell Distribution Width 20.2 % (11.5-14.5)
[2016-09-04 15:32] LABS: INR 1.3; Prothrombin Time 14.6 Seconds (9.4-12.1)
[2016-09-04 15:35] LABS: Activated Partial Thrombo Time 31.4 Seconds (26.0-36.0)
[2016-09-04 15:45] LABS: Albumin 3.5 g/dL (3.5-5.0); Bilirubin,Direct 0.5 mg/dL (0.0-0.5); Bilirubin,Indirect 0.5 mg/dL (0.0-1.2); Calcium 9.4 mg/dL (8.6-10.8); Globulin 3.6 g/dL (2.4-3.5); Potassium 4.2 mEq/L (3.5-4.5); Total Protein 7.1 g/dL (6.0-8.3)
[2016-09-04 15:49] LABS: Ovalocytes 1+ (Not Present)
[2016-09-04 15:50] LABS: Anisocytosis 1+ (Not Present); Hypochromasia Present (Not Present)
[2016-09-04 15:51] LABS: Platelet Estimate Normal (Normal); Poikilocytosis 1+ (Not Present)
[2016-09-04] MEDS ORDERED: Furosemide 40 MG/4 ML VIAL IVP ONE (17:24)
[2016-09-04] MEDS ORDERED: Naloxone 0.4 MG/ML INJ IVP PRN (19:33)
--- NOTE | 2016-09-04 19:38 | Internal Med History&Physical ---
Date of Encounter: 09/04/16 Time of Encounter: 19:37 Assessment and Plan (1) Acute decompensated heart failure Current visit: Yes Status: Acute patient with a history of indeterminate diastolic function but normal LVEF of 55 % per 2D echo in 07/2016 comes in with signs and symptoms concerning for heart failure decompensation, etiology may be related to his AFIB, we will admit for diuresis, fluid restriction to 1.5L/24hrs, daily weights, will continue betablockade, EMILIE-I his presentation is not severe, he may be ready for discharge home in 24-48 hours, no need for repeat Echo or inpatient cardiology eval (2) Hypertension Current visit: Yes Status: Chronic history of HTN on BB and EMILIE-I, we will continue with BP monitoring Qualifiers: Hypertension type: essential hypertension Qualified Code(s): I10 - Essential (primary) hypertension (3) COPD (chronic obstructive pulmonary disease) Current visit: Yes Status: Chronic stable, we will do PRN nebs Qualifiers: COPD type: chronic bronchitis Chronic bronchitis type: simple Qualified Code(s): J41.0 - Simple chronic bronchitis (4) Afib Current visit: Yes Status: Chronic his systemic anticoagulation has been on hold, the etiology of his anemia has not yet been ascertained, he will need to find out from his physicians when to safely resume it, for now we will continue rate control with metoprolol, he is on digoxin for rhythm control which we will continue, levels were WNL Qualifiers: Atrial fibrillation type: chronic Qualified Code(s): I48.2 - Chronic atrial fibrillation (5) GERD (gastroesophageal reflux disease) Current visit: Yes Status: Chronic he is on PPI at home which we will continue Qualifiers: Esophagitis presence: without esophagitis Qualified Code(s): K21.9 - Gastro -esophageal reflux disease without esophagitis Internal Medicine - H&P: HPI Chief complaint: weight gain Admitted From: Emergency Dept Plans for Post Hospital Care: Home History of present illness: Mr. Castanon is a 86 year old male with a history of heart failure who was brought in by family for significant weight gain. He reports that he was in his usual state of health until he returned from an out of state trip and since then he has been to the [place] multiple times for dyspnea, weight gain-about 9LBS in <1 week, dyspnea on exertion, reduced exercise tolerance. The treatment regimen at the [place] was no working so he was sent here for further intervention. About ?3 weeks ago his ICD fired about 3 times , he did not pass out and was interrogated later and adjustments were made to the ICD. Since then it has not fired again but he has not been able to resume his normal physical activities due to his symptoms and also for fear of his ICD firing again. He denies salt or fluid indiscretion, he also denies medication non adherence. Of note he was on warfarin for systemic anticoagulation for AFIB until 03/2016 when he was taken off for EGD in a quest for the cause of his anemia, his EGD was performed yesterday but no abnormal findings were made, he had a colonoscopy in Spring of last year with no concerning findings. He has not been asked to resume his warfarin yet. Past Med Surg Social Fam HX - Past Medical History Medical history: atrial fibrillation, CHF, COPD, GI bleed, hyperlipidemia, hypertension, renal disease Psychiatric history: no psych history - Past Surgical History Surgical History: knee replacement, pacemaker/AICD - Social History Smoking Status: Former smoker Smokeless Tobacco Status: No Alcohol use: none Drug use: none Current living situation: Home - Independent Activity Level: Independent ambulation - Family History Mother Living Status: Father Living Status: Internal Medicine - H&P: Meds Allopurinol [Zyloprim] 100 mg PO QAM 03/29/15 [History] Furosemide [Lasix] 40 mg PO BID PRN 03/29/15 [History] Gabapentin [Neurontin] 300 mg PO TID 03/29/15 [History] Gluc/Heladio-MSM#1/C/Hans/Leonidas/Bor [Osteo Bi-Flex Caplet] 1 tab PO QAM 03/29/15 [ History] Pravastatin Sodium [Pravachol] 20 mg PO HS 03/29/15 [History] Hydroxyzine HCl 25 mg PO TID 08/15/16 [History] Melatonin/Pyridoxine HCl (B6) [Melatonin 3 mg Tablet] 3 mg PO HS 08/15/16 [ History] Pantoprazole Sodium [Protonix] 40 mg PO DAILY 08/15/16 [History] Aspirin Enteric Coated [Aspirin EC] 81 mg PO DAILY 09/04/16 [History] Digoxin [Lanoxin] 0.125 mg PO QAM 09/04/16 [History] Lisinopril [Zestril] 10 mg PO BID 09/04/16 [History] Methylphenidate HCl [Concerta] 18 mg PO 09/04/16 [History] Metoprolol XL (24 HR) Succ [Toprol Xl] 125 mg PO BID 09/04/16 [History] Potassium Chloride [Klor-Con 10] 10 meq PO BID 09/04/16 [History] Tolterodine LA (24 HR) [Detrol LA] 4 mg PO HS 09/04/16 [History] Allergies No Known Allergies Allergy (Verified 09/04/16 13:47) All Systems PM: A 10-system review of systems was performed and is negative for pertinent findings except as documented above in the HPI. - Constitutional Vitals: Temp Pulse Resp BP Pulse Ox 97.6 F 87 16 143/76 96 09/04/16 13:43 09/04/16 18:26 09/04/16 19:20 09/04/16 19:20 09/04/16 18:26 PHYSICAL EXAMINATION: GENERAL: Elderly male, lying in bed with no sign of distress, Alert, HEENT: NC/AT, EOMI, PERRLA, anicteric sclera, normal conjunctiva, supple, clear nares, moist mucous membranes, clear oropharynx, central uvula RESP: has bilateral basal crackles, no wheeze, not in respiratory distress, CARDIO: Normal hearts sounds; S1 and 2, irregularly irregular heart sounds with no murmurs, no JVD, mild pitting pedal edema GI: Soft, full, no tenderness, no organomegaly felt, normal bowel sounds heard MUSCULOSKELETAL: grossly normal movements bilaterally, no deformities noted, no calf tenderness NEUROLOGIC: CN 2-12 intact grossly. No motor/sensory deficit appreciated, PSYCHIATRY: AAO x 3. Mood is fair, exhibits appropriate judgement SKIN: no skin rash or ulcers noted Internal Med - H&P Results - Labs CBC & Chem 7: 09/04/16 15:19 09/05/16 03:38 - EKG Data -: EKG Interpreted by Myself - Diagnostic Studies Chest x-ray Status: image reviewed by me
[2016-09-04] MEDS: Furosemide 40 MG/4 ML VIAL IVP SCH (22:34)
[2016-09-04] MEDS: Gabapentin 300 MG CAPSULE PO SCH (22:35)
[2016-09-04] MEDS: hydrOXYzine pamoate 25 MG CAPSULE PO SCH (22:35)
[2016-09-04] MEDS: Metoprolol XL (24 HR) Succ 50 MG TAB.ER.24H PO SCH (22:35)
[2016-09-04] MEDS: Tolterodine LA (24 HR) 4 MG CAP.ER.24H PO SCH (22:36)
[2016-09-04] MEDS: (Melatonin/Pyridoxine Hcl (B6) [Melatonin 3 Mg Tablet PO SCH (22:36)
[2016-09-05 04:58] LABS: Calcium 9.3 mg/dL (8.6-10.8); Magnesium 1.6 mg/dL (1.6-2.6); Phosphorous 4.1 mg/dL (2.3-4.7); Potassium 3.7 mEq/L (3.5-4.5)
[2016-09-05] MEDS: hydrOXYzine pamoate 25 MG CAPSULE PO SCH ×3 (08:24→20:16)
[2016-09-05] MEDS: Aspirin Enteric Coated 81 MG Tablet PO SCH (08:24)
[2016-09-05] MEDS: Gabapentin 300 MG CAPSULE PO SCH ×3 (08:24→20:17)
[2016-09-05] MEDS: *HR* Digoxin 0.125 MG TABLET PO SCH (08:24)
[2016-09-05] MEDS: Metoprolol XL (24 HR) Succ 50 MG TAB.ER.24H PO SCH ×2 (08:25→20:17)
[2016-09-05] MEDS: Furosemide 40 MG/4 ML VIAL IVP SCH ×2 (08:25→16:16)
[2016-09-05] MEDS: [UNRECOGNIZED DRUG - OTHER] PO SCH (08:25)
--- NOTE | 2016-09-05 10:15 | Electrocardiograph Report ---
[place] [id number] Test Date: 2016-09-04 Pat Name: Sha Castanon Department: 103 Room: 3B Gender: M Special Needs Nanny: : [id number] Requested By: Jonatan Caruso Order Number: [id number] Reading MD: Marisa Obregon Measurements Intervals [place] Rate: 75 P: [place]: 0 QRS: 21 QRSD: 96 T: 147 QT: 370 QTc: 398 Interpretive Statements ATRIAL FIBRILLATION WITH demand ventricular pacing ST DEVIATION AND MODERATE T-WAVE ABNORMALITY, CONSIDER LATERAL ISCHEMIA Electronically Signed On 09-05-2016 10:13:40 EDT by Marisa Obregon
[2016-09-05 10:18] LABS: % Iron Saturation 4 % (20-55); Iron 18 mcg/dL (65-175); Transferrin 330 mg/dL (174-364)
[2016-09-05 10:53] LABS: Folate 17.3 ng/mL (7.0-31.4)
--- NOTE | 2016-09-05 17:08 | Internal Med Progress Note ---
Date of Encounter: 09/05/16 Time of Encounter: 17:05 - Assessment and plan (1) Acute decompensated heart failure Current Visit: Yes Status: Acute Assessment and plan: patient with a history of indeterminate diastolic function but normal LVEF of 55 % per 2D echo in 07/2016 comes in with signs and symptoms concerning for heart failure decompensation, etiology may be related to his AFIB, will continue diuresis, fluid restriction to 1.5L/24hrs, daily weights, will continue betablockade, EMILIE-I clinically improved than yest as per the patient, will continue to monitor (2) Afib Current Visit: Yes Status: Chronic Assessment and plan: his systemic anticoagulation has been on hold, the etiology of his anemia has not yet been ascertained, he will need to find out from his physicians when to safely resume it, for now we will continue rate control with metoprolol, he is on digoxin for rhythm control which we will continue, levels were WNL Qualifiers: Atrial fibrillation type: chronic Qualified Code(s): I48.2 - Chronic atrial fibrillation (3) Hypertension Current Visit: Yes Status: Chronic Assessment and plan: history of HTN on BB and EMILIE-I, we will continue with BP monitoring Qualifiers: Hypertension type: essential hypertension Qualified Code(s): I10 - Essential (primary) hypertension (4) Anemia Current Visit: Yes Status: Chronic Assessment and plan: has microcytic anemia iron panel shows low iron level, b12 and folate is normal will start iron sucrose,possible 2/2 iron deficiency, he denies dark stool or karishma. recently had EGD at [facility] and says that it was negative for any bleeding ulcers. colpnoscopy done last yr at [facility] and reports that was negative as well. 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 not on o2 at home - Constitutional Vitals: Temp Pulse Resp BP Pulse Ox 98.1 F 74 14 116/73 91 09/05/16 14:55 05/10/17 14:55 09/05/16 14:55 09/05/16 14:55 09/05/16 14:55 General appearance: Present: A&O X 3, no acute distress Exam: GENERAL: Elderly male, lying in bed with no sign of distress, Alert, HEENT: NC/AT, EOMI, PERRLA, anicteric sclera, normal conjunctiva, supple, clear nares, moist mucous membranes, clear oropharynx, central uvula RESP: occ creptns, no wheeze, not in respiratory distress, CARDIO: Normal hearts sounds; S1 and 2, irregularly irregular heart sounds with no murmurs, no JVD, mild pitting pedal edema GI: Soft, full, no tenderness, no organomegaly felt, normal bowel sounds heard MUSCULOSKELETAL: grossly normal movements bilaterally, no deformities noted, no calf tenderness NEUROLOGIC: CN 2-12 intact grossly. No motor/sensory deficit appreciated, PSYCHIATRY: AAO x 3. Mood is fair, exhibits appropriate judgement SKIN: no skin rash or ulcers noted Internal Medicine: Result - Labs CBC & Chem 7: 09/04/16 15:19 09/05/16 03:38 Labs: BMP 09/05/16 03:38 Sodium 144 Potassium 3.7 Chloride 104 Carbon Dioxide 30 H BUN 31 H Creatinine 1.87 H Glucose 97 Calcium 9.3 - ABG Interpretation ABG results: PT/INR, D-dimer PT 14.6 Seconds (9.4-12.1) H 09/04/16 15:19 - VTE Documentation of Mechanical Device: Graduated compression elastic hosiery Consult Discharge Plan - Plan [facility]: [facility] Provider[facility] - 09/11/16 10:15 am
[2016-09-05] MEDS: Iron Sucrose Complex 200 MG in 0.9 % Sodium Chloride 100 ML IVPB SCH (18:08)
[2016-09-05] MEDS: Tolterodine LA (24 HR) 4 MG CAP.ER.24H PO SCH (20:16)
[2016-09-05] MEDS: (Melatonin/Pyridoxine Hcl (B6) [Melatonin 3 Mg Tablet PO SCH (20:17)
[2016-09-06] MEDS: Gabapentin 300 MG CAPSULE PO SCH (07:55)
[2016-09-06] MEDS: *HR* Digoxin 0.125 MG TABLET PO SCH (07:55)
[2016-09-06] MEDS: Aspirin Enteric Coated 81 MG Tablet PO SCH (07:55)
[2016-09-06] MEDS: hydrOXYzine pamoate 25 MG CAPSULE PO SCH (07:55)
[2016-09-06] MEDS: Metoprolol XL (24 HR) Succ 50 MG TAB.ER.24H PO SCH (07:55)
[2016-09-06] MEDS: Furosemide 40 MG/4 ML VIAL IVP SCH (07:55)
[2016-09-06] MEDS: [UNRECOGNIZED DRUG - OTHER] PO SCH (07:56)
[2016-09-06] MEDS: Iron Sucrose Complex 200 MG in 0.9 % Sodium Chloride 100 ML IVPB SCH (09:13)
[2016-09-06 11:00] VITALS: BP 113/62
--- NOTE | 2016-09-06 12:44 | Discharge Summary ---
Date of Encounter: 09/07/16 Time of Encounter: 12:41 - Discharge Diagnosis (1) Acute decompensated heart failure Priority: Primary Status: Acute (2) Afib Priority: Secondary Status: Chronic Qualifiers: Atrial fibrillation type: chronic Qualified Code(s): I48.2 - Chronic atrial fibrillation (3) Hypertension Priority: Secondary Status: Chronic Qualifiers: Hypertension type: essential hypertension Qualified Code(s): I10 - Essential (primary) hypertension (4) Anemia Priority: Secondary Status: Chronic Qualifiers: Anemia type: iron deficiency Qualified Code(s): D50.8 - Other iron deficiency anemias (5) COPD (chronic obstructive pulmonary disease) Priority: Secondary Status: Chronic Qualifiers: COPD type: chronic bronchitis Chronic bronchitis type: simple Qualified Code(s): J41.0 - Simple chronic bronchitis - Discharge Medications Prescriptions: Docusate [Colace] 100 mg PO DAILY PRN #30 capsule PRN Reason: Constipation Ferrous Sulfate 325 mg PO BIDWM #60 tablet Furosemide [Lasix] 40 mg PO DAILY #60 tab Home Medications: Allopurinol [Zyloprim] 100 mg PO QAM 03/29/15 [History] Gabapentin [Neurontin] 300 mg PO TID 03/29/15 [History] Gluc/Heladio-MSM#1/C/Hans/Leonidas/Bor [Osteo Bi-Flex Caplet] 1 tab PO QAM 03/29/15 [ History] Pravastatin Sodium [Pravachol] 20 mg PO HS 03/29/15 [History] Melatonin/Pyridoxine HCl (B6) [Melatonin 3 mg Tablet] 3 mg PO HS 08/15/16 [ History] Pantoprazole Sodium [Protonix] 40 mg PO DAILY 08/15/16 [History] hydrOXYzine HCl [Hydroxyzine HCl] 25 mg PO TID 08/15/16 [History] Aspirin Enteric Coated [Aspirin EC] 81 mg PO DAILY 09/04/16 [History] Digoxin [Lanoxin] 0.125 mg PO QAM 09/04/16 [History] Lisinopril [Zestril] 10 mg PO BID 09/04/16 [History] Methylphenidate HCl [Concerta] 18 mg PO 09/04/16 [History] Metoprolol XL (24 HR) Succ [Toprol Xl] 125 mg PO BID 09/04/16 [History] Potassium Chloride [Klor-Con 10] 10 meq PO BID 09/04/16 [History] Tolterodine LA (24 HR) [Detrol LA] 4 mg PO HS 09/04/16 [History] Docusate [Colace] 100 mg PO DAILY PRN #30 capsule 09/06/16 [Rx] Ferrous Sulfate 325 mg PO BIDWM #60 tablet 09/06/16 [Rx] Furosemide [Lasix] 40 mg PO DAILY #60 tab 09/06/16 [Rx] Allergies/Adverse Reactions: Allergies No Known Allergies Allergy (Verified 09/04/16 13:47) Date of admission: 09/04/16 18:42 Primary care physician: [facility] Consults: 09/05/16 13:28 Consult to [employer] [CONS] Routine Reason for Consult: re-admission Discharging clinician: Ida Albarran Anticipated date of discharge: 09/06/16 - Patient Status Disposition: Home, Self-Care Condition: Fair Functional capacity at discharge: independent ambulation Overall status at discharge: patient is back to baseline - Discharge Instructions Instructions: Heart Failure (DC), Atrial Fibrillation (DC), Chronic Obstructive Pulmonary Disease (DC), Chronic Hypertension (DC), Anemia (GEN) Follow Up With: [facility],PCP [Primary Care Provider] - 09/11/16 10:15 am - Diet and Activity Activity: resume usual activities as tolerated Diet: other (cardiac diet) Interval History: Mr. Castanon is a 86 year old male with a history of heart failure who was brought in by family for significant weight gain. He presented to [facility] multiple times for dyspnea, weight gain-about 9LBS in <1 week, dyspnea on exertion, reduced exercise tolerance. The treatment regimen at the [facility] was not working so he was sent here for further intervention. About ?3 weeks ago his ICD fired about 3 times , he did not pass out and was interrogated later and adjustments were made to the ICD. Since then it has not fired again but he has not been able to resume his normal physical activities due to his symptoms and also for fear of his ICD firing again. He denies salt or fluid indiscretion, he also denies medication non adherence. Of note he was on warfarin for systemic anticoagulation for AFIB until 03/2016 when he was taken off for EGD in a quest for the cause of his anemia, his EGD was performed yesterday but no abnormal findings were made, he had a colonoscopy in Spring of last year with no concerning findings. He has not been asked to resume his warfarin yet. RACIEL was admitted for concern of possible diastolic CHF and was treated with IV lasix,fluid restriction to 1.5L/24hrs, daily weights, betablockade, EMILIE-I. HE has microcytic anemia, iron panel shows low iron level, b12 and folate is normal was started on iron sucrose,possible 2/2 iron deficiency, he denies dark stool or karishma. he improved clinically with iV lasix and he is being dc today in stable condition. will dc him with scripts for oral ferrous sulphate , kenzie will follow up with his PCP at [facility]. Hospital course: Mr. Castanon is a 86 year old male Time spent discussing smoking cessation with patient: more than 10 minutes - Time Spent with Patient Total time spent providing and/or coordinating discharge services: Greater than 30 minutes - Constitutional Vitals: Temp Pulse Resp BP Pulse Ox 97.9 F 67 15 113/62 92 09/06/16 10:59 09/06/16 10:59 09/06/16 10:59 09/06/16 10:59 09/06/16 10:59 General appearance: Present: A&O X 3, no acute distress Exam: GENERAL: Elderly male, lying in bed with no sign of distress, Alert, HEENT: NC/AT, EOMI, PERRLA, anicteric sclera, normal conjunctiva, supple, clear nares, moist mucous membranes, clear oropharynx, central uvula RESP: occ creptns, no wheeze, not in respiratory distress, CARDIO: Normal hearts sounds; S1 and 2, irregularly irregular heart sounds with no murmurs, no JVD, mild pitting pedal edema GI: Soft, full, no tenderness, no organomegaly felt, normal bowel sounds heard MUSCULOSKELETAL: grossly normal movements bilaterally, no deformities noted, no calf tenderness NEUROLOGIC: CN 2-12 intact grossly. No motor/sensory deficit appreciated, PSYCHIATRY: AAO x 3. Mood is fair, exhibits appropriate judgement SKIN: no skin rash or ulcers noted - VTE Documentation of Mechanical Device: Graduated compression elastic hosiery
== END 2016-09-06 13:30 | disposition home or self-care (01) | DRG 293 ==
LOC: EMEROO 13:24 → SUATTDRO 18:42 → 3BNU 18:42
PROVIDERS: ADMIT Internal Medicine; ATTEND Internal Medicine

== ENCOUNTER 2016-10-08 20:14 | Inpatient (IN) ==
[2016-10-08 21:14] LABS: Albumin 3.7 g/dL (3.5-5.0); Bilirubin,Total 0.6 mg/dL (0.2-1.2); Calcium 10.1 mg/dL (8.6-10.8); Globulin 3.8 g/dL (2.4-3.5); Potassium 5.3 mEq/L (3.5-4.5); Total Protein 7.5 g/dL (6.0-8.3)
--- NOTE | 2016-10-08 21:28 | Emergency Department Note ---
Disposition Clinical Impression: Elevated troponin Acute renal failure Qualifiers: Acute renal failure type: unspecified Qualified Code(s): N17.9 - Acute kidney failure, unspecified Disposition: Admitted As Inpatient Condition: Fair General Adult HPI - General Chief complaint: ED Weakness Stated complaint: weakness Time Seen by Provider: 10/08/16 20:34 Source: patient, EMS Limitations: no limitations Nursing Notes Reviewed: Yes Vital Signs Reviewed: Yes - History of Present Illness HPI Narrative: 86-year-old male who reports onset of progressive weakness over the last few day. He went to establish care with Dr. Barba today and he voices concern about some fatigue and so she received some outpatient lab work. They report that his fatigue worsened to the point that he had difficulty with ambulation and so they called EMS to bring him to the emergency department. He has received all of his care so far at the [facility]. He has a past medical history of A. fib, CHF, CK D, hypertension, GERD. He does have an AICD placed in 2016. 2013 he had a left carotid endarterectomy. He takes digoxin, hydroxyzine, Lasix, allopurinol, Neurontin, statin, Coumadin, lisinopril, metoprolol. He states he is still urinating without difficulty. He denies seen a vocal artist in the past. He denies any chest pain or shortness of breath. Denies difficulty eating or drinking or nausea vomiting. Denies any fever. Pain Scale: 0 Consistency: constant Improves with: nothing Worsens with: nothing Associated symptoms: Reports: denies other symptoms Treatments Prior to Arrival: none - Related Data Home Medications Medication Instructions Recorded Confirmed Allopurinol [Zyloprim] 100 mg PO QAM 03/29/15 10/08/16 Gabapentin [Neurontin] 300 mg PO TID 03/29/15 10/08/16 Gluc/Heladio-MSM#1/C/Hans/Leonidas/Bor 1 tab PO BID 03/29/15 10/08/16 [Osteo Bi-Flex Caplet] Pravastatin Sodium [Pravachol] 20 mg PO HS 03/29/15 10/08/16 Melatonin/Pyridoxine HCl (B6) 3 mg PO HS 08/15/16 10/08/16 [Melatonin 3 mg Tablet] Pantoprazole Sodium [Protonix] 40 mg PO DAILY 08/15/16 10/08/16 hydrOXYzine HCl [Hydroxyzine HCl] 25 mg PO TID 08/15/16 10/08/16 Aspirin Enteric Coated [Aspirin EC] 81 mg PO DAILY 09/04/16 10/08/16 Digoxin [Lanoxin] 0.125 mg PO QAM 09/04/16 09/04/16 Lisinopril [Zestril] 10 mg PO BID 09/04/16 10/08/16 Metoprolol XL (24 HR) Succ [Toprol 150 mg PO BID 09/04/16 10/08/16 Xl] Potassium Chloride [Klor-Con 10] 20 meq PO DAILY 09/04/16 09/04/16 Tolterodine LA (24 HR) [Detrol LA] 4 mg PO HS 09/04/16 10/08/16 Albuterol Neb [Proventil Neb] 2.5 mg IH QID PRN 10/08/16 10/08/16 Mometasone Furoate [Asmanex] 220 mcg IH BID 10/08/16 10/08/16 Saw [place] Xtr/Zinc Picolin [Saw 1 each PO DAILY 10/08/16 10/08/16 [place] Capsule] Spironolactone [Aldactone] 25 mg PO DAILY 10/08/16 10/08/16 Warfarin [Coumadin] 4 mg PO SUMOWEFRSA 10/08/16 Warfarin [Coumadin] 6 mg PO TUTH 10/08/16 Previous Rx's Medication Instructions Recorded Docusate [Colace] 100 mg PO DAILY PRN #30 capsule 09/06/16 Ferrous Sulfate 325 mg PO BIDWM #60 tablet 09/06/16 Furosemide [Lasix] 40 mg PO DAILY #60 tab 09/06/16 Allergies Allergy/AdvReac Type Severity Reaction Status Date / Time No Known Allergies Allergy Verified 09/04/16 13:47 All systems ED: reviewed and negative except as stated. Constitutional: Denies: fever Eyes: Denies: vision change ENT ED: Denies: throat pain Cardiovascular: Denies: chest pain Respiratory: Denies: cough Gastrointestinal: Denies: abdominal pain, nausea, vomiting, diarrhea Genitourinary: Denies: dysuria, frequency Musculoskeletal: Denies: back pain Integumentary: Denies: rash Neurological: Denies: headache Past Medical History - Past Medical History Medical history: Reports: atrial fibrillation, CHF, COPD, GI bleed, hyperlipidemia, hypertension, renal disease Surgical history: Reports: knee replacement, pacemaker/AICD Psychiatric history: Reports: no psych history - Social History Smoking Status: Former smoker Smokeless Tobacco Status: No Alcohol use: Reports: none Drug use: Reports: none Physical Exam - General Limitations: no limitations General appearance: alert, in no apparent distress - Head Head exam: atraumatic - Eye Eye exam: Present: normal appearance, PERRL, EOMI - ENT ENT exam: normal exam, normal oropharynx - Neck Neck exam: Present: normal inspection - Chest Chest inspection: Present: normal inspection - Respiratory Respiratory exam: Present: normal lung sounds bilaterally. Absent: respiratory distress - Cardiovascular Cardiovascular exam: Present: regular rate, normal rhythm - Abdominal Exam Abdominal exam: Present: soft, Non-Tender - Extremities Exam Extremities exam: Present: normal inspection - Neurological Exam Neurological exam: Present: alert, oriented X3 - Skin Skin exam: Present: warm, dry Course Course Narrative: 86-year-old male generalized fatigue. He does have some mild clonus of the upper extremities that is similar to an intention tremor. It is not at rest. Only when he is attempting to perform a task. It is been going on for a few weeks. We will obtain screening lab work and disposition accordingly - Reevaluation(s) Reevaluation #1: Chest x-ray is unchanged. Potassium is elevated at 5.3. Baseline creatinine of 1.5. Creatinine today is 3.6. His fatigue is likely secondary to acute renal failure. His troponin is mildly elevated will give him aspirin. Likely secondary to acute renal failure as he has no symptoms suggestive of acute ischemic CAD. EKG shows atrial fibrillation with some mild ST depression in 2, 3, aVF. His INR the which was drawn earlier today is over 5 so I will not start him on a heparin drip. I will go ahead and give him some aspirin. He emphatically denies any chest pain or shortness of breath. Metta accepts Vital Signs Temperature 98.6 F 10/08/16 20:16 Pulse Rate 70 10/08/16 20:16 Respiratory Rate 18 10/08/16 20:16 Blood Pressure 144/88 10/08/16 20:16 O2 Sat by Pulse Oximetry 94 10/08/16 20:16 Temperature 98.3 F 10/09/16 00:01 Pulse Rate 70 10/09/16 00:01 Respiratory Rate 18 10/09/16 00:01 Blood Pressure 133/75 10/09/16 00:01 O2 Sat by Pulse Oximetry 95 10/09/16 00:01 Oxygen Delivery Oxygen Delivery Room Air Medical Decision Making - Medical Records Medical records reviewed: Yes I reviewed the patient's medical records. - Lab Data Lab results reviewed: Yes I reviewed the patient's lab results. Result diagrams: 10/09/16 00:50 10/09/16 00:50 Lab Results 10/08/16 10/08/16 10/08/16 Range/Units 20:50 20:50 21:13 WBC (4.3-11.1) K/mcL RBC (4.19-5.50) M/mcL Hgb (12.9-16.9) g/dL Hct (37.5-50.1) % MCV (83.0-100.0) fL MCH (28.0-33.3) pg MCHC (31.6-35.5) g/dL RDW Plt Count (140-400) K/mcL MPV Immature Gran % (0-4) % Seg Neutrophils % % Lymphocytes % % Monocytes % % Eosinophils % % Basophils % % Neutrophils # (1.6-8.9) K/mcL Lymphocytes # (0.6-4.6) K/mcL Monocytes # (0.0-1.3) K/mcL Eosinophils # (0.0-0.6) K/mcL Basophils # (0.0-0.2) K/mcL Platelet Estimate (Normal) Immature Plt Fraction (1.1-6.1) % Anisocytosis (Not Present) Sodium 140 (136-145) mEq/L Potassium 5.3 H (3.5-4.5) mEq/L Chloride 100 (98-109) mEq/L Carbon Dioxide 30 H (19-29) mEq/L BUN 65 H (8-26) mg/dL Creatinine 3.63 H (0.72-1.25) mg/dL Est GFR ( Amer) 19 L (> 60) Est GFR (Non-Af Amer) 16 L (> 60) BUN/Creatinine Ratio 18 (6-26) Glucose 113 H (70-99) mg/dL Calculated Osmolality 309 H (280-300) Calcium 10.1 (8.6-10.8) mg/dL Total Bilirubin 0.6 (0.2-1.2) mg/dL AST 21 (5-34) Units/L ALT 18 (0-55) Units/L Alkaline Phosphatase 124 (38-126) Units/L Troponin I 0.06 H* (0-0.03) ng/mL Serum Total Protein 7.5 (6.0-8.3) g/dL Albumin 3.7 (3.5-5.0) g/dL Globulin 3.8 H (2.4-3.5) g/dL Albumin/Globulin Ratio 1.0 L (1.1-2.2) Urine Color (Yellow) Urine Clarity (Clear) Urine pH (5.0-8.0) pH Units Ur Specific [place] (1.010-1.025) Urine Protein (Neg-Trace) mg/dL Urine Glucose (UA) (Normal) mg/dL Urine Ketones (Negative) mg/dL Urine Blood (Negative) Urine Nitrite (Negative) Urine Bilirubin (Negative) Urine Urobilinogen (Normal) mg/dL Ur Leukocyte Esterase (Negative) Urine Microscopic RBC (0-3) per hpf Urine Microscopic WBC (0-3) per hpf Ur Squamous Epith Cells (None-Few) per lpf Urine Bacteria (None-Few) per hpf Hyaline Casts (None-Few) per lpf Ur Culture Indicated? (NO) Specimen Rejected MCV Delta 17 10/08/16 Range/Units 21:37 21:38 WBC 13.6 H (4.3-11.1) K/mcL RBC 5.14 (4.19-5.50) M/mcL Hgb 12.5 L (12.9-16.9) g/dL Hct 40.4 (37.5-50.1) % MCV 78.6 L D (83.0-100.0) fL MCH 24.3 L (28.0-33.3) pg MCHC 30.9 L (31.6-35.5) g/dL RDW TNP Plt Count 148 (140-400) K/mcL MPV TNP Immature Gran % 0.3 (0-4) % Seg Neutrophils % 70.1 % Lymphocytes % 13.7 % Monocytes % 8.5 % Eosinophils % 6.8 % Basophils % 0.6 % Neutrophils # 9.5 H (1.6-8.9) K/mcL Lymphocytes # 1.9 (0.6-4.6) K/mcL Monocytes # 1.2 (0.0-1.3) K/mcL Eosinophils # 0.9 H (0.0-0.6) K/mcL Basophils # 0.1 (0.0-0.2) K/mcL Platelet Estimate Normal (Normal) Immature Plt Fraction 7.9 H (1.1-6.1) % Anisocytosis 3+ A (Not Present) Sodium (136-145) mEq/L Potassium (3.5-4.5) mEq/L Chloride (98-109) mEq/L Carbon Dioxide (19-29) mEq/L BUN (8-26) mg/dL Creatinine (0.72-1.25) mg/dL Est GFR ( Amer) (> 60) Est GFR (Non-Af Amer) (> 60) BUN/Creatinine Ratio (6-26) Glucose (70-99) mg/dL Calculated Osmolality (280-300) Calcium (8.6-10.8) mg/dL Total Bilirubin (0.2-1.2) mg/dL AST (5-34) Units/L ALT (0-55) Units/L Alkaline Phosphatase (38-126) Units/L Troponin I (0-0.03) ng/mL Serum Total Protein (6.0-8.3) g/dL Albumin (3.5-5.0) g/dL Globulin (2.4-3.5) g/dL Albumin/Globulin Ratio (1.1-2.2) Urine Color Yellow (Yellow) Urine Clarity Clear (Clear) Urine pH 6.0 (5.0-8.0) pH Units Ur Specific [place] 1.013 (1.010-1.025) Urine Protein Negative (Neg-Trace) mg/dL Urine Glucose (UA) Normal (Normal) mg/dL Urine Ketones Negative (Negative) mg/dL Urine Blood Negative (Negative) Urine Nitrite Negative (Negative) Urine Bilirubin Negative (Negative) Urine Urobilinogen Normal (Normal) mg/dL Ur Leukocyte Esterase Trace H (Negative) Urine Microscopic RBC 0-3 (0-3) per hpf Urine Microscopic WBC 0-3 (0-3) per hpf Ur Squamous Epith Cells Few (None-Few) per lpf Urine Bacteria None Seen (None-Few) per hpf Hyaline Casts None Seen (None-Few) per lpf Ur Culture Indicated? YES A (NO) Specimen Rejected - EKG Data EKG #1 EKG attestation: Yes I reviewed and interpreted this EKG. Interpretation: other (Atrial fibrillation with [address] depression in leads [address] elevation. This is new from priors.) Attestation Statement - Attestation Attestation: I, Suman Montanez MD, personally evaluated this patient and discussed their management with the resident physician. I reviewed the resident's note and agree with the documented findings, medical decision making, and plan of care. 86-year-old male presents to the emergency department with family complaining that he has had increasing confusion over the past several months but acutely worse over the past few days. Also increased generalized weakness. No complaint of cough or chest pain or difficulty breathing. No fever. No vomiting or diarrhea. No abdominal pain. Patient has no specific complaints other than some pain in his hand where he had blood drawn earlier today. On examination the patient is a well-developed well-nourished elderly male in no acute distress. He is alert and cooperative. He does seem mildly confused. Chest is nontender to palpation. Breath sounds are clear and equal bilaterally. Heart regular rate and rhythm. Abdomen soft and nontender with normal bowel sounds. No gross focal neurological deficits. Labs reviewed. Significant increase in creatinine from baseline. Hyperkalemia. Elevated troponin. The hospitalist, Dr. Lenz, was consulted and accepted the admission of the patient.
[2016-10-08] MEDS ORDERED: Aspirin 325 MG TABLET PO ONE (21:35)
[2016-10-08] MEDS ORDERED: 0.9 % Sodium Chloride 500 ML IVC ONE (21:37)
[2016-10-08 21:44] LABS: Basophils # 0.1 K/mcL (0.0-0.2); Basophils % 0.6 %; Eosinophils # 0.9 K/mcL (0.0-0.6); Eosinophils % 6.8 %; Hematocrit 40.4 % (37.5-50.1); Hemoglobin 12.5 g/dL (12.9-16.9); Immature Granulocytes % 0.3 % (0-4); Immature Platelets 7.9 % (1.1-6.1); Lymphocytes # 1.9 K/mcL (0.6-4.6); Lymphocytes % 13.7 %; Mean Corpuscular HGB Conc 30.9 g/dL (31.6-35.5); Mean Corpuscular Hemoglobin 24.3 pg (28.0-33.3); Mean Corpuscular Volume 78.6 fL (83.0-100.0); Monocytes # 1.2 K/mcL (0.0-1.3); Monocytes % 8.5 %; Neutrophils # 9.5 K/mcL (1.6-8.9); Platelet Count 148 K/mcL (140-400); Red Blood Count 5.14 M/mcL (4.19-5.50); Segmented Neutrophils % 70.1 %
[2016-10-08 21:49] LABS: Bilirubin,Urine Negative (Negative); Blood,Urine Negative (Negative); Clarity,Urine Clear (Clear); Color,Urine Yellow (Yellow); Glucose,Urine (UA) Normal (Normal); Ketones,Urine Negative (Negative); Leukocyte Esterase,Urine Trace (Negative); Nitrite,Urine Negative (Negative); Protein,Urine Negative (Neg-Trace); Specific Gravity,Urine 1.013 (1.010-1.025); Urobilinogen,Urine Normal (Normal)
[2016-10-08 21:52] LABS: Bacteria,Urine None Seen per hpf (None-Few); Hyaline Casts,Urine None Seen per lpf (None-Few); RBC,Urine 0-3 per hpf (0-3); Squamous Epithelial Cell,Urine Few per lpf (None-Few); WBC,Urine 0-3 per hpf (0-3)
[2016-10-08 22:17] LABS: Anisocytosis 3+ (Not Present)
[2016-10-08 22:18] LABS: Platelet Estimate Normal (Normal)
[2016-10-08] MEDS ORDERED: Acetaminophen 325 MG TABLET PO PRN (23:32)
[2016-10-08] MEDS ORDERED: Naloxone 0.4 MG/ML INJ IVP PRN (23:32)
[2016-10-08] MEDS ORDERED: Ondansetron 4 MG/2 ML VIAL IVP PRN (23:32)
--- NOTE | 2016-10-08 23:50 | Internal Med History&Physical ---
Date of Encounter: 10/09/16 Time of Encounter: 23:40 Assessment and Plan (1) Acute renal failure Current visit: Yes Status: Acute Patient has a history of congestive heart failure and is on Lasix for the same. He states that he has been outside in the sun and has not been keeping up with his fluid intake. He reports fatigue. Dry mucous membranes on exam. Laboratory data reveals elevated BUN/creatinine. Patient admitted to inpatient status due to acute kidney injury. High risk due to risk of worsening renal function which may require hemodialysis. Expected to be in the hospital for at least 2 midnights. Expected discharge disposition is to home. Avoid nephrotoxic agents and hypotension. Intravenous fluids. Check renal ultrasound to rule out postobstructive injury. Qualifiers: Acute renal failure type: unspecified Qualified Code(s): N17.9 - Acute kidney failure, unspecified (2) Elevated troponin Current visit: Yes Status: Acute Likely due to renal for dysfunction. Cycle troponins. Patient had an echo in July 2016 which revealed an ejection fraction of 55%, atypical septal motion consistent with bundle branch block. Indeterminate diastolic function due to atrial fibrillation was seen. Severely dilated left atrium and severely dilated right atrium were seen. Mild mitral regurgitation and moderate tricuspid regurgitation present. Moderate to severe pulmonary hypertension was seen. (3) Afib Current visit: Yes Status: Chronic Rate controlled. Continue current rate control medications. Qualifiers: Atrial fibrillation type: chronic Qualified Code(s): I48.2 - Chronic atrial fibrillation (4) CHF (congestive heart failure) Current visit: Yes Status: Chronic Echocardiogram from July 2016 revealed preserved ejection fraction. Currently, patient is hypovolemic causing acute kidney injury. Patient will be given intravenous fluid hydration. Qualifiers: Congestive heart failure type: diastolic Congestive heart failure chronicity: chronic Qualified Code(s): I50.32 - Chronic diastolic (congestive ) heart failure (5) Hypertension Current visit: Yes Status: Chronic Hold antihypertensive medications due to acute kidney injury. Resume depending on his blood pressures. Qualifiers: Hypertension type: essential hypertension Qualified Code(s): I10 - Essential (primary) hypertension Internal Medicine - H&P: HPI Chief complaint: Fatigue Admitted From: Emergency Dept Plans for Post Hospital Care: Home History of present illness: Mr. Castanon is a 86 year old male who presented to the hospital due to fatigue. [facility] He recently went to establish care with Dr. Barba today. As he was complaining of fatigue, he had outpatient lab work performed. His fatigue also worsened her point that he had difficulty with ambulation and hence, EMS was called. The patient was brought to the emergency department. In the emergency room, he was found to have acute kidney injury and is being admitted for the same. Patient states that he has noticed reduced urine output. He denies any chest pain, shortness of breath, cough or wheezing. He reports feeling lightheaded with exertion. He denies any headache, fever or chills. He denies any abdominal pain, nausea, vomiting, diarrhea or constipation. He denies any swelling in his legs. He reports using his Lasix for congestive heart failure. Past Med Surg Social Fam HX - Past Medical History Attestation: Yes The following information was validated with the patient. Source: patient, old records reviewed Medical history: atrial fibrillation, CHF, COPD, GI bleed, hyperlipidemia, hypertension, renal disease Psychiatric history: no psych history - Past Surgical History Surgical History: knee replacement, pacemaker/AICD - Social History Smoking Status: Former smoker Smokeless Tobacco Status: No Alcohol use: none Drug use: none Occupational status: retired Current living situation: Home Activity Level: Uses cane/walker Recent Out of Country Travel Within the Last 8 Weeks: No Exposure or Possible Exposure to Illness During Travel: No - Family History Mother Living Status: Father Living Status: Hx Family Cardiac Disorders: Yes ([place]) Hx Family Respiratory Disorders: No Hx Family Cancer: No Hx Family GI Disorders: No Hx Family Endocrine Disorder: No Hx Family Neuromuscular Disorders: No Hx Family Neurologic Disorders: No Hx Family HEENT Disorders: No Hx Family Autoimmune Disorders: No Internal Medicine - H&P: Meds Allopurinol [Zyloprim] 100 mg PO QAM 03/29/15 [History] Gabapentin [Neurontin] 300 mg PO TID 03/29/15 [History] Gluc/Heladio-MSM#1/C/Hans/Leonidas/Bor [Osteo Bi-Flex Caplet] 1 tab PO BID 03/29/15 [ History] Pravastatin Sodium [Pravachol] 20 mg PO HS 03/29/15 [History] Melatonin/Pyridoxine HCl (B6) [Melatonin 3 mg Tablet] 3 mg PO HS 08/15/16 [ History] Pantoprazole Sodium [Protonix] 40 mg PO DAILY 08/15/16 [History] hydrOXYzine HCl [Hydroxyzine HCl] 25 mg PO TID 08/15/16 [History] Aspirin Enteric Coated [Aspirin EC] 81 mg PO DAILY 09/04/16 [History] Digoxin [Lanoxin] 0.125 mg PO QAM 09/04/16 [History] Lisinopril [Zestril] 10 mg PO BID 09/04/16 [History] Metoprolol XL (24 HR) Succ [Toprol Xl] 150 mg PO BID 09/04/16 [History] Potassium Chloride [Klor-Con 10] 20 meq PO DAILY 09/04/16 [History] Tolterodine LA (24 HR) [Detrol LA] 4 mg PO HS 09/04/16 [History] Docusate [Colace] 100 mg PO DAILY PRN #30 capsule 09/06/16 [Rx] Ferrous Sulfate 325 mg PO BIDWM #60 tablet 09/06/16 [Rx] Furosemide [Lasix] 40 mg PO DAILY #60 tab 09/06/16 [Rx] Albuterol Neb [Proventil Neb] 2.5 mg IH QID PRN 10/08/16 [History] Mometasone Furoate [Asmanex] 220 mcg IH BID 10/08/16 [History] Saw Alba Xtr/Zinc Picolin [Saw Alba Capsule] 1 each PO DAILY 10/08/16 [ History] Spironolactone [Aldactone] 25 mg PO DAILY 10/08/16 [History] Warfarin [Coumadin] 4 mg PO SUMOWEFRSA 10/08/16 [History] Warfarin [Coumadin] 6 mg PO TUTH 10/08/16 [History] Allergies No Known Allergies Allergy (Verified 09/04/16 13:47) All Systems PM: A 10-system review of systems was performed and is negative for pertinent findings except as documented above in the HPI. Review of systems: 10 systems have been reviewed and are negative except as mentioned in the history of present illness - Constitutional Vitals: Temp Pulse Resp BP Pulse Ox 98.6 F 69 20 123/85 94 10/08/16 20:16 10/08/16 23:00 10/08/16 23:18 10/08/16 23:18 10/08/16 23:00 Exam: Gen.: Lying in bed. Mild distress. Eyes: Pupils equal, round and reactive to light. Extraocular muscles intact. ENT: Dry mucous membranes. No oropharyngeal erythema or discharge. Chest: Clear to auscultation bilaterally. No adventitious sounds present. CVS: First and second heart sounds present. No murmurs, rubs or gallops. Abdomen: Soft, nontender, nondistended. Bowel sounds present. No hepatosplenomegaly. Skin: No decubitus ulcers appreciated. 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 Psychiatric: Alert, awake and oriented to time, place and person. Lymphatic system: No lymphadenopathy appreciated Internal Med - H&P Results - Labs CBC & Chem 7: 10/08/16 21:38 10/08/16 20:50 - EKG Data -: EKG Interpreted by Myself (Paced rhythm) Rate: normal - Diagnostic Studies Chest x-ray Status: image reviewed by me (No acute infiltrates seen; AICD/pacemaker in place )
[2016-10-09] MEDS: 0.9 % Sodium Chloride 1,000 ML IVC SCH ×2 (00:49→16:11)
[2016-10-09 01:14] LABS: Eosinophils % 6.6 %
[2016-10-09 01:15] LABS: Basophils # 0.1 K/mcL (0.0-0.2); Basophils % 0.6 %; Eosinophils # 0.9 K/mcL (0.0-0.6); Hematocrit 42.4 % (37.5-50.1); Immature Granulocytes % 0.2 % (0-4); Immature Platelets 8.5 % (1.1-6.1); Lymphocytes # 2.2 K/mcL (0.6-4.6); Lymphocytes % 16.3 %; Mean Corpuscular HGB Conc 30.7 g/dL (31.6-35.5); Mean Corpuscular Hemoglobin 24.3 pg (28.0-33.3); Mean Corpuscular Volume 79.1 fL (83.0-100.0); Monocytes # 1.1 K/mcL (0.0-1.3); Monocytes % 8.3 %; Platelet Count 148 K/mcL (140-400); Red Blood Count 5.36 M/mcL (4.19-5.50)
[2016-10-09 01:22] LABS: Prothrombin Time 71.1 Seconds (9.4-12.1)
[2016-10-09 01:23] LABS: INR 6.2
[2016-10-09 01:26] LABS: Calcium 9.8 mg/dL (8.6-10.8); Potassium 5.2 mEq/L (3.5-4.5)
[2016-10-09 01:45] LABS: Anisocytosis 3+ (Not Present); Hypochromasia Present (Not Present)
[2016-10-09 01:46] LABS: Large Platelets Present (Not Present); Microcytosis Present (Not Present); Platelet Estimate Decreased (Normal)
[2016-10-09] MEDS: Beclomethasone 80mcg MDI IH SCH ×2 (07:57→19:42)
[2016-10-09] MEDS: Aspirin Enteric Coated 81 MG Tablet PO SCH (08:50)
[2016-10-09] MEDS ORDERED: Gabapentin 300 MG CAPSULE PO SCH (09:00)
--- NOTE | 2016-10-09 11:29 | Electrocardiograph Report ---
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
--- NOTE | 2016-10-09 17:13 | Internal Med Progress Note ---
Date of Encounter: 10/09/16 Time of Encounter: 17:12 - Assessment and plan (1) Afib Current Visit: Yes Status: Chronic Assessment and plan: Patient is on multiple medications for rate control and also on Coumadin but INR is quite high due to Coumadin is on hold but rest of the medication can be continued while she will remain on monitor. Qualifiers: Atrial fibrillation type: chronic Qualified Code(s): I48.2 - Chronic atrial fibrillation (2) Hypertension Current Visit: Yes Status: Chronic Assessment and plan: Stable continue to monitor current medication Qualifiers: Hypertension type: essential hypertension Qualified Code(s): I10 - Essential (primary) hypertension (3) CAD (coronary artery disease) Current Visit: No Status: Chronic Assessment and plan: Stable at this time Qualifiers: Coronary Disease-Associated Artery/Lesion type: unspecified vessel or lesion type Qualified Code(s): I25.10 - Atherosclerotic heart disease of [place] coronary artery without angina pectoris (4) CHF (congestive heart failure) Current Visit: Yes Status: Chronic Qualifiers: Congestive heart failure type: diastolic Congestive heart failure chronicity: chronic Qualified Code(s): I50.32 - Chronic diastolic (congestive ) heart failure (5) COPD (chronic obstructive pulmonary disease) Current Visit: No Status: Chronic Qualifiers: COPD type: chronic bronchitis Chronic bronchitis type: simple Qualified Code(s): J41.0 - Simple chronic bronchitis (6) CKD (chronic kidney disease) Current Visit: No Status: Chronic Assessment and plan: Limited at this time and will follow his creatinine after holding Lasix and giving a trial of IV fluids Qualifiers: Chronic kidney disease stage: stage 3 (moderate) Qualified Code(s): N18.3 - Chronic kidney disease, stage 3 (moderate) (7) Acute renal failure Current Visit: Yes Status: Acute Assessment and plan: Patient creatinine is elevated and this could be due to Lasix which is given to keep his diastolic dysfunction under control. I am not sure about his jerky movement and these could be muscle cramps. In any case we are gently hydrating him while Lasix ON hold to see if his symptoms resolve as well as if his creatinine returns to baseline. His digoxin is on hold and we will check his dig level. Ultrasounds of kidneys is unremarkable. Qualifiers: Acute renal failure type: unspecified Qualified Code(s): N17.9 - Acute kidney failure, unspecified (8) Elevated troponin Current Visit: Yes Status: Acute Assessment and plan: Perhaps related to elevated renal function as they have plateaued - Subjective Interval history: Mr. Vasu Castanon is an 86-year-old gentleman has been admitted for abnormal labs leading to acute kidney injury uncontrolled atrial fibrillation and elevated INR while he is on Coumadin and amiodarone. Patient has history of diastolic congestive heart failure for which she takes every dose Lasix. Lately he has been complaining of jerky movements of hands which I am not sure if he is referring to muscle cramps. His doctor thought that to elevated digoxin level may be contributing. Therefore digoxin is on hold. - Constitutional Vitals: Temp Pulse Resp BP Pulse Ox 97.5 F L 61 12 129/76 95 10/09/16 16:08 10/09/16 16:08 10/09/16 16:08 10/09/16 16:08 10/09/16 16:08 - Head Head exam: Present: atraumatic, normocephalic - Eye Eye exam: Present: PERRL, conjuntiva pink, sclera anicteric Pupils: Present: PERRL - Neck Neck exam general surgery: Present: supple, trachea midline. Absent: lymphadenopathy - Respiratory Respiratory exam: Present: CTAB. Absent: accessory muscle use, rales, rhonchi, wheezes - Cardiovascular Cardiovascular exam: Present: RRR, +S1, +S2. Absent: diastolic murmur, gallop, rubs, systolic murmur - GI/Abdominal GI/Abdominal exam: Present: normal bowel sounds, soft, no peritoneal signs. Absent: distended, tenderness - Extremities Exam Extremities exam: Present: warm, radial pulses palpable and symetrical. Absent : calf tenderness, cyanotic, pedal edema - Neurological Exam Neurological exam: Present: CN II-XII intact, oriented X3, no focal deficits. Absent: pronater drift, facial droop, speech deficit - Skin Skin exam: Present: dry, intact Internal Medicine: Result - Labs CBC & Chem 7: 10/09/16 00:50 10/09/16 00:50 Labs: Short CBC 10/09/16 Range/Units 00:50 WBC 13.2 H (4.3-11.1) K/mcL Hgb 13.0 (12.9-16.9) g/dL Hct 42.4 (37.5-50.1) % Plt Count 148 (140-400) K/mcL Neutrophils # 9.0 H (1.6-8.9) K/mcL BMP 10/09/16 00:50 Sodium 138 Potassium 5.2 H Chloride 101 Carbon Dioxide 26 BUN 66 H Creatinine 3.39 H Glucose 126 H Calcium 9.8 Cardiac Enzymes 10/09/16 10/09/16 Range/Units 00:50 06:34 Troponin I 0.07 H* 0.05 H* (0-0.03) ng/mL - ABG Interpretation ABG results: PT/INR, D-dimer PT 71.1 Seconds (9.4-12.1) H* 10/09/16 00:50 - Impressions Impressions Retroperitoneum Ultrasound 10/09/16 13:00 IMPRESSION: 1. No hydronephrosis. 2. 1.9 cm right renal cyst. D/ / Ford Sky MD / Ford Sky MD Interpreting Provider: Ford Sky MD - VTE Documentation of Mechanical Device: Graduated compression elastic hosiery Consult Discharge Plan - Plan [facility] [Primary Care Provider[facility] -
[2016-10-09] MEDS: Tolterodine LA (24 HR) 4 MG CAP.ER.24H PO SCH (20:03)
[2016-10-09] MEDS: Gabapentin 300 MG CAPSULE PO SCH (20:04)
[2016-10-10 05:30] LABS: INR 3.9
[2016-10-10 05:34] LABS: Prothrombin Time 43.5 Seconds (9.4-12.1)
[2016-10-10] MEDS: Beclomethasone 80mcg MDI IH SCH ×2 (07:39→19:59)
[2016-10-10] MEDS: Gabapentin 300 MG CAPSULE PO SCH ×2 (09:36→20:53)
[2016-10-10] MEDS: Aspirin Enteric Coated 81 MG Tablet PO SCH (09:36)
[2016-10-10] MEDS: 0.9 % Sodium Chloride 1,000 ML IVC SCH (09:47)
[2016-10-10 11:05] LABS: Basophils # 0.1 K/mcL (0.0-0.2); Basophils % 0.7 %; Eosinophils # 0.6 K/mcL (0.0-0.6); Eosinophils % 5.6 %; Hematocrit 44.3 % (37.5-50.1); Hemoglobin 13.3 g/dL (12.9-16.9); Immature Granulocytes % 0.4 % (0-4); Immature Platelets 8.5 % (1.1-6.1); Lymphocytes # 1.3 K/mcL (0.6-4.6); Lymphocytes % 12.5 %; Mean Corpuscular Hemoglobin 24.2 pg (28.0-33.3); Mean Corpuscular Volume 80.7 fL (83.0-100.0); Monocytes # 0.8 K/mcL (0.0-1.3); Neutrophils # 7.9 K/mcL (1.6-8.9); Platelet Count 129 K/mcL (140-400); Red Blood Count 5.49 M/mcL (4.19-5.50); Segmented Neutrophils % 73.8 %
[2016-10-10 11:17] LABS: Albumin 3.5 g/dL (3.5-5.0); Albumin/Globulin Ratio 0.9 (1.1-2.2); Bilirubin,Total 0.8 mg/dL (0.2-1.2); Globulin 3.9 g/dL (2.4-3.5); Potassium 4.5 mEq/L (3.5-4.5); Total Protein 7.4 g/dL (6.0-8.3)
[2016-10-10 11:40] LABS: Anisocytosis 3+ (Not Present); Hypochromasia Present (Not Present); Platelet Estimate Normal (Normal)
--- NOTE | 2016-10-10 14:35 | Internal Med Progress Note ---
Date of Encounter: 10/10/16 Time of Encounter: 14:32 - Assessment and plan (1) Afib Current Visit: Yes Status: Chronic Assessment and plan: Patient is on multiple medications for rate control and also on Coumadin but INR is quite high due to Coumadin is on hold but rest of the medication can be continued while she will remain on monitor. Qualifiers: Atrial fibrillation type: chronic Qualified Code(s): I48.2 - Chronic atrial fibrillation (2) Hypertension Current Visit: Yes Status: Chronic Assessment and plan: Stable continue to monitor current medication Qualifiers: Hypertension type: essential hypertension Qualified Code(s): I10 - Essential (primary) hypertension (3) CAD (coronary artery disease) Current Visit: No Status: Chronic Assessment and plan: Stable at this time Qualifiers: Coronary Disease-Associated Artery/Lesion type: unspecified vessel or lesion type Qualified Code(s): I25.10 - Atherosclerotic heart disease of [place] coronary artery without angina pectoris (4) CHF (congestive heart failure) Current Visit: Yes Status: Chronic Assessment and plan: s noted above chest examination is quite go no evidence of CHF Qualifiers: Congestive heart failure type: diastolic Congestive heart failure chronicity: chronic Qualified Code(s): I50.32 - Chronic diastolic (congestive ) heart failure (5) COPD (chronic obstructive pulmonary disease) Current Visit: No Status: Chronic Assessment and plan: at this pointCOPD seems quite stable and his chest examination seems quite unremarkable Qualifiers: COPD type: chronic bronchitis Chronic bronchitis type: simple Qualified Code(s): J41.0 - Simple chronic bronchitis (6) CKD (chronic kidney disease) Current Visit: No Status: Chronic Assessment and plan: Limited at this time and will follow his creatinine after holding Lasix and giving a trial of IV fluids Creatinine is improving slowly and today it was 2.5 Qualifiers: Chronic kidney disease stage: stage 3 (moderate) Qualified Code(s): N18.3 - Chronic kidney disease, stage 3 (moderate) (7) Acute renal failure Current Visit: Yes Status: Acute Assessment and plan: Patient creatinine is elevated and this could be due to Lasix which is given to keep his diastolic dysfunction under control. I am not sure about his jerky movement and these could be muscle cramps. In any case we are gently hydrating him while Lasix ON hold to see if his symptoms resolve as well as if his creatinine returns to baseline. His digoxin is on hold and we will check his dig level. Ultrasounds of kidneys is unremarkable. patient digoxin level is 1.1 however heart therefore we are holding digoxin for now. He has atrial fibrillation which is at this time rate controlled. Patient renal function is slowly improv and we do not know his baseline but his creatinine has now come down to 2 2.5 rangeI Will continue hydrating him for discharge him tomorrow Qualifiers: Acute renal failure type: unspecified Qualified Code(s): N17.9 - Acute kidney failure, unspecified (8) Elevated troponin Current Visit: Yes Status: Acute Assessment and plan: Perhaps related to elevated renal function as they have plateaued - Subjective Interval history: Mr. Vasu Castanon is an 86-year-old gentleman has been admitted for abnormal labs leading to acute kidney injury uncontrolled atrial fibrillation and elevated INR while he is on Coumadin and amiodarone. Patient has history of diastolic congestive heart failure for which he takes every dose Lasix. Lately he has been complaining of jerky movements of hands which I am not sure if he is referring to muscle cramps. His doctor thought that to elevated digoxin level may be contributing. Therefore digoxin is on hold. patient was seen this morningand he seems to have improved quite significantly. His sitting in chair eating by himself and seems to be close to his baseline. He denies any symptoms though his daughter seems quite worried. Family and patient are encouraged to ask any questions. No further involuntary movement have been reported. No obvious bleeding have been reported. - Constitutional Vitals: Temp Pulse Resp BP Pulse Ox 97.8 F 65 20 132/73 97 10/10/16 10:42 10/10/16 10:42 10/10/16 10:42 10/10/16 10:42 10/10/16 10:42 - Head Head exam: Present: atraumatic, normocephalic - Eye Eye exam: Present: PERRL, conjuntiva pink, sclera anicteric Pupils: Present: PERRL - Neck Neck exam general surgery: Present: supple, trachea midline. Absent: lymphadenopathy - Respiratory Respiratory exam: Present: CTAB. Absent: accessory muscle use, rales, rhonchi, wheezes - Cardiovascular Cardiovascular exam: Present: RRR, +S1, +S2. Absent: diastolic murmur, gallop, rubs, systolic murmur - GI/Abdominal GI/Abdominal exam: Present: normal bowel sounds, soft, no peritoneal signs. Absent: distended, tenderness - Extremities Exam Extremities exam: Present: warm, radial pulses palpable and symetrical. Absent : calf tenderness, cyanotic, pedal edema Internal Medicine: Result - Labs CBC & Chem 7: 10/10/16 10:54 10/10/16 10:54 Labs: Short CBC 10/10/16 Range/Units 10:54 WBC 10.7 (4.3-11.1) K/mcL Hgb 13.3 (12.9-16.9) g/dL Hct 44.3 (37.5-50.1) % Plt Count 129 L (140-400) K/mcL Neutrophils # 7.9 (1.6-8.9) K/mcL BMP 10/10/16 10:54 Sodium 140 Potassium 4.5 Chloride 105 Carbon Dioxide 28 BUN 51 H Creatinine 2.43 H Glucose 115 H Calcium 10.0 Liver Function 10/10/16 Range/Units 10:54 Total Bilirubin 0.8 (0.2-1.2) mg/dL AST 24 (5-34) Units/L ALT 19 (0-55) Units/L Alkaline Phosphatase 119 (38-126) Units/L Albumin 3.5 (3.5-5.0) g/dL - ABG Interpretation ABG results: PT/INR, D-dimer PT 43.5 Seconds (9.4-12.1) H* 10/10/16 05:13 - VTE Documentation of Mechanical Device: Graduated compression elastic hosiery Consult Discharge Plan - Plan Referrals: [facility] [Outside] - 10/19/16 3:15 pm
[2016-10-10] MEDS: Tolterodine LA (24 HR) 4 MG CAP.ER.24H PO SCH (20:53)
[2016-10-11] MEDS: 0.9 % Sodium Chloride 1,000 ML IVC SCH ×2 (03:06→12:27)
[2016-10-11 05:55] LABS: INR 2.2; Prothrombin Time 24.6 Seconds (9.4-12.1)
[2016-10-11] MEDS: Aspirin Enteric Coated 81 MG Tablet PO SCH (07:55)
[2016-10-11] MEDS: Gabapentin 300 MG CAPSULE PO SCH ×2 (07:55→21:12)
[2016-10-11 09:11] LABS: Hematocrit 45.9 % (37.5-50.1); Hemoglobin 13.6 g/dL (12.9-16.9); Mean Corpuscular HGB Conc 29.6 g/dL (31.6-35.5); Mean Corpuscular Hemoglobin 24.3 pg (28.0-33.3); Mean Corpuscular Volume 82.1 fL (83.0-100.0); Platelet Count 132 K/mcL (140-400); Red Blood Count 5.59 M/mcL (4.19-5.50)
[2016-10-11 09:28] LABS: Albumin 3.7 g/dL (3.5-5.0); Albumin/Globulin Ratio 0.8 (1.1-2.2); Bilirubin,Total 1.1 mg/dL (0.2-1.2); Calcium 9.9 mg/dL (8.6-10.8); Globulin 4.5 g/dL (2.4-3.5); Total Protein 8.2 g/dL (6.0-8.3)
[2016-10-11 09:36] LABS: Potassium 4.8 mEq/L (3.5-4.5)
[2016-10-11] MEDS: Beclomethasone 80mcg MDI IH SCH ×2 (11:06→19:18)
[2016-10-11] MEDS: Diltiazem CD (24hr) 120 MG CAPSULE PO SCH (16:42)
[2016-10-11] MEDS ORDERED: *HR* Warfarin 3 MG TABLET PO SCH (18:00)
[2016-10-11] MEDS ORDERED: Warfarin perPT PO PRN (18:00)
--- NOTE | 2016-10-11 18:16 | Internal Med Progress Note ---
Date of Encounter: 10/11/16 Time of Encounter: 18:14 - Assessment and plan (1) Afib Current Visit: Yes Status: Chronic Assessment and plan: Patient is off digoxin due to dig toxicity but not his level is 1. Since creatinine is still 2. Not sure if she will be sure to start his digoxin. I will add Cardizem CD in addition to metoprolol for now. INR is 2.2 therefore Coumadin at lower dose can be restarted and really started around 3 mg daily. Qualifiers: Atrial fibrillation type: chronic Qualified Code(s): I48.2 - Chronic atrial fibrillation (2) Hypertension Current Visit: Yes Status: Chronic Assessment and plan: Stable continue to monitor current medication Qualifiers: Hypertension type: essential hypertension Qualified Code(s): I10 - Essential (primary) hypertension (3) CAD (coronary artery disease) Current Visit: No Status: Chronic Assessment and plan: Stable at this time Qualifiers: Coronary Disease-Associated Artery/Lesion type: unspecified vessel or lesion type [place] vs. transplanted heart: [place] heart Associated angina: without angina Qualified Code(s): I25.10 - Atherosclerotic heart disease of [place] coronary artery without angina pectoris (4) CHF (congestive heart failure) Current Visit: Yes Status: Chronic Assessment and plan: s noted above chest examination is quite gOoD no evidence of CHF Qualifiers: Congestive heart failure type: diastolic Congestive heart failure chronicity: chronic Qualified Code(s): I50.32 - Chronic diastolic (congestive ) heart failure (5) COPD (chronic obstructive pulmonary disease) Current Visit: No Status: Chronic Assessment and plan: at this pointCOPD seems quite stable and his chest examination seems quite unremarkable Qualifiers: COPD type: chronic bronchitis Chronic bronchitis type: simple Qualified Code(s): J41.0 - Simple chronic bronchitis (6) CKD (chronic kidney disease) Current Visit: No Status: Chronic Assessment and plan: Limited at this time and will follow his creatinine after holding Lasix and giving a trial of IV fluids Creatinine is improving slowly and today it was 2.2 Qualifiers: Chronic kidney disease stage: stage 3 (moderate) Qualified Code(s): N18.3 - Chronic kidney disease, stage 3 (moderate) (7) Acute renal failure Current Visit: Yes Status: Acute Assessment and plan: Patient creatinine is elevated and this could be due to Lasix which is given to keep his diastolic dysfunction under control. I am not sure about his jerky movement and these could be muscle cramps. In any case we are gently hydrating him while Lasix ON hold to see if his symptoms resolve as well as if his creatinine returns to baseline. His digoxin is on hold and we will check his dig level. Ultrasounds of kidneys is unremarkable. patient digoxin level is 1.1 however heart therefore we are holding digoxin for now. He has atrial fibrillation which is at this time rate controlled. Patient renal function is slowly improv and we do not know his baseline but his creatinine has now come down to 2 2.5 rangeI Will continue hydrating him for discharge him tomorrow Qualifiers: Acute renal failure type: unspecified Qualified Code(s): N17.9 - Acute kidney failure, unspecified (8) Elevated troponin Current Visit: Yes Status: Acute Assessment and plan: Perhaps related to elevated renal function as they have plateaued - Subjective Interval history: Mr. Vasu Castanon is an 86-year-old gentleman has been admitted for abnormal labs leading to acute kidney injury uncontrolled atrial fibrillation and elevated INR while he is on Coumadin and amiodarone. Patient has history of diastolic congestive heart failure for which he takes every dose Lasix. Lately he has been complaining of jerky movements of hands which I am not sure if he is referring to muscle cramps. His doctor thought that to elevated digoxin level may be contributing. Therefore digoxin is on hold. patient was seen this morning and he seems to have improved quite significantly. His sitting in chair eating by himself and seems to be close to his baseline. He denies any symptoms though his daughter seems quite worried. Family and patient are encouraged to ask any questions. No further involuntary movement have been reported. No obvious bleeding have been reported. 10/11 patient is doing much better. He is asymptomatic. He is ambulating well and eating well. His electrolytes are slowly improving and creatinine has come down to 2 while potassium has come down to 4.8. As noted above ultrasound of kidney was normal. His heart rate is normal in 90s but since his creatinine is still quite high and his digoxin level is still around 1 I will also start him on Cardizem CD 120 mg in addition to his metoprolol. Patient's family is quite concerned about his progress and therefore I will involve cardiology and nephrology to give us opinion regarding his atrial fibrillation and management and the acute kidney failure versus presence of chronic kidney disease - Constitutional Vitals: Temp Pulse Resp BP Pulse Ox 97.8 F 61 17 129/75 97 10/11/16 14:58 10/11/16 14:58 10/11/16 14:58 10/11/16 14:58 10/11/16 14:58 - Head Head exam: Present: atraumatic, normocephalic - Eye Eye exam: Present: PERRL, conjuntiva pink, sclera anicteric Pupils: Present: PERRL - Neck Neck exam general surgery: Present: supple, trachea midline. Absent: lymphadenopathy - Respiratory Respiratory exam: Present: CTAB. Absent: accessory muscle use, rales, rhonchi, wheezes - Cardiovascular Cardiovascular exam: Present: +S1, +S2. Absent: diastolic murmur, gallop, rubs , systolic murmur Additional comments: Irregular rate and rhythm with - GI/Abdominal GI/Abdominal exam: Present: normal bowel sounds, soft, no peritoneal signs. Absent: distended, tenderness - Extremities Exam Extremities exam: Present: warm, radial pulses palpable and symetrical. Absent : calf tenderness, cyanotic, pedal edema - Neurological Exam Neurological exam: Present: CN II-XII intact, oriented X3, no focal deficits. Absent: pronater drift, facial droop, speech deficit - Skin Skin exam: Present: dry, intact Internal Medicine: Result - Labs CBC & Chem 7: 10/11/16 09:00 10/11/16 09:00 Labs: Short CBC 10/11/16 Range/Units 09:00 WBC 11.0 (4.3-11.1) K/mcL Hgb 13.6 (12.9-16.9) g/dL Hct 45.9 (37.5-50.1) % Plt Count 132 L (140-400) K/mcL BMP 10/11/16 09:00 Sodium 143 Potassium 4.8 H Chloride 108 Carbon Dioxide 24 BUN 41 H D Creatinine 2.07 H Glucose 139 H Calcium 9.9 Liver Function 10/11/16 Range/Units 09:00 Total Bilirubin 1.1 (0.2-1.2) mg/dL AST 43 H (5-34) Units/L ALT 20 (0-55) Units/L Alkaline Phosphatase 123 (38-126) Units/L Albumin 3.7 (3.5-5.0) g/dL - ABG Interpretation ABG results: PT/INR, D-dimer PT 24.6 Seconds (9.4-12.1) H 10/11/16 05:21 - VTE Documentation of Mechanical Device: Graduated compression elastic hosiery Consult Discharge Plan - Plan Referrals: [facility] [Outside] - 10/19/16 3:15 pm
[2016-10-11] MEDS: Tolterodine LA (24 HR) 4 MG CAP.ER.24H PO SCH (21:12)
[2016-10-12] MEDS: 0.9 % Sodium Chloride 1,000 ML IVC SCH ×2 (01:50→02:24)
[2016-10-12 06:55] LABS: Hematocrit 40.1 % (37.5-50.1); Immature Platelets 9.6 % (1.1-6.1); Mean Corpuscular HGB Conc 29.9 g/dL (31.6-35.5); Mean Corpuscular Hemoglobin 24.5 pg (28.0-33.3); Platelet Count 118 K/mcL (140-400); Red Blood Count 4.89 M/mcL (4.19-5.50)
[2016-10-12 06:56] LABS: INR 1.8; Prothrombin Time 20.3 Seconds (9.4-12.1)
[2016-10-12 07:09] LABS: Albumin 3.3 g/dL (3.5-5.0); Bilirubin,Total 1.1 mg/dL (0.2-1.2); Calcium 9.6 mg/dL (8.6-10.8); Potassium 4.9 mEq/L (3.5-4.5); Total Protein 6.7 g/dL (6.0-8.3)
[2016-10-12 07:10] LABS: Globulin 3.4 g/dL (2.4-3.5)
--- NOTE | 2016-10-12 07:32 | Nephrology Consult Note ---
Date of Encounter: 10/12/16 Time of Encounter: 07:30 Assessment and Plan (1) Acute renal failure Current Visit: Yes Status: Acute The patient has a clinical picture of acute kidney injury. His kidney injury has improved following the withdrawal of diuretics and his EMILIE inhibitor and being placed on IV fluids. He likely has a component of volume depletion that contributed to his acute kidney injury. Renal ultrasound was unremarkable. He may have some underlying chronic kidney disease. Creatinine in July ranged from 1.58-1.70. At this point time I would continue the IV fluid hydration. Continue to avoid nephrotoxins. Continue to monitor his renal function. If his renal function does not improve back to baseline he may require an evaluation for underlying chronic kidney disease. This can certainly be done as an outpatient. Qualifiers: Acute renal failure type: unspecified Qualified Code(s): N17.9 - Acute kidney failure, unspecified History of Present Illness - History of Present Illness This is an 86-year-old male who reportedly was having symptoms of generalized weakness. He had outpatient laboratory studies done that showed that he had an elevated creatinine. He was admitted on October 08 with a creatinine of 3.63. The patient's diuretics and lisinopril been placed on hold and he has been placed on IV hydration. As of yesterday his creatinine is improved on the 2.07. Currently the patient says he feels well but he has not been out of bed since he has been admitted to the hospital. He denies any previous history of renal disease. However [place] in July of this year his creatinine ranged from 1.58-1.70. In 2013 the creatinine was 1.06. The patient denies any history of hematuria proteinuria renal stone disease frequent urinary tract infections or difficulty in emptying his bladder. He has not been taking anti-inflammatory medications. He does have a history of congestive heart failure and has a pacemaker and defibrillator in place. I believe he gets a lot of [place]. He had a renal ultrasound done that was unremarkable. Chest x- ray was also unremarkable. Past Med Surg Social Fam HX - Past Medical History Medical history: atrial fibrillation, CHF, COPD, GI bleed, hyperlipidemia, hypertension, renal disease Psychiatric history: no psych history - Past Surgical History Surgical History: knee replacement, pacemaker/AICD - Social History Smoking Status: Former smoker Smokeless Tobacco Status: No Alcohol use: none Drug use: none - Family History Mother Living Status: Father Living Status: Hx Family Cardiac Disorders: Yes ([place]) Hx Family Respiratory Disorders: No Hx Family Cancer: No Hx Family GI Disorders: No Hx Family Endocrine Disorder: No Hx Family Neuromuscular Disorders: No Hx Family Neurologic Disorders: No Hx Family HEENT Disorders: No Hx Family Autoimmune Disorders: No Medications and Allergies Allopurinol [Zyloprim] 100 mg PO QAM 03/29/15 [History] Gabapentin [Neurontin] 300 mg PO TID 03/29/15 [History] Gluc/Heladio-MSM#1/C/Hans/Leonidas/Bor [Osteo Bi-Flex Caplet] 1 tab PO BID 03/29/15 [ History] Pravastatin Sodium [Pravachol] 20 mg PO HS 03/29/15 [History] Melatonin/Pyridoxine HCl (B6) [Melatonin 3 mg Tablet] 3 mg PO HS 08/15/16 [ History] Pantoprazole Sodium [Protonix] 40 mg PO DAILY 08/15/16 [History] hydrOXYzine HCl [Hydroxyzine HCl] 25 mg PO TID 08/15/16 [History] Aspirin Enteric Coated [Aspirin EC] 81 mg PO DAILY 09/04/16 [History] Digoxin [Lanoxin] 0.125 mg PO QAM 09/04/16 [History] Lisinopril [Zestril] 20 mg PO BID 09/04/16 [History] Metoprolol XL (24 HR) Succ [Toprol Xl] 125 mg PO BID 09/04/16 [History] Potassium Chloride [Klor-Con 10] 20 meq PO DAILY 09/04/16 [History] Tolterodine LA (24 HR) [Detrol LA] 4 mg PO HS 09/04/16 [History] Docusate [Colace] 100 mg PO DAILY PRN #30 capsule 09/06/16 [Rx] Ferrous Sulfate 325 mg PO BIDWM #60 tablet 09/06/16 [Rx] Furosemide [Lasix] 40 mg PO DAILY #60 tab 09/06/16 [Rx] Albuterol Neb [Proventil Neb] 2.5 mg IH QID PRN 10/08/16 [History] Mometasone Furoate [Asmanex] 220 mcg IH BID 10/08/16 [History] Saw [place] Xtr/Zinc Picolin [Saw [place] Capsule] 1 each PO DAILY 10/08/16 [ History] Spironolactone [Aldactone] 25 mg PO DAILY 10/08/16 [History] Warfarin [Coumadin] 4 mg PO SUMOWEFRSA 10/08/16 [History] Warfarin [Coumadin] 6 mg PO TUTH 10/08/16 [History] Allergies No Known Allergies Allergy (Verified 09/04/16 13:47) Review of Systems Constitutional: fatigue Nose, mouth and throat: no dizziness, no headache(s) Cardiovascular: dyspnea on exertion, no chest pain, no palpitations Respiratory: dyspnea on exertion, no cough, no dyspnea Gastrointestinal: no abdominal pain, no change in bowel habits Musculoskeletal: no muscle weakness, no numbness Integumentary: no hirsutism, no striae Neurological: tremor(s), weakness Psychiatric: no depression, no difficulty concentrating Endocrine: as per HPI Exam - Vital Signs Vital signs: Initial Vital Signs Temp Pulse Resp BP Pulse Ox 98.6 F 70 18 144/88 94 10/08/16 20:16 10/08/16 20:16 10/08/16 20:16 10/08/16 20:16 10/08/16 20:16 Vital Signs - Last 8 Hours Temp Pulse Resp BP Pulse Ox 10/12/16 07:00 97.8 F 75 17 137/66 95 10/12/16 03:00 98.4 F 76 16 158/90 96 10/12/16 00:13 97.8 F 60 15 147/81 96 Intake and Output 10/11/16 10/11/16 10/12/16 15:59 23:59 07:59 Intake Total 2089 360 / 360 1000 / 1000 Output Total 0 / 0 425 / 425 600 / 600 Balance 2089 -65 / -65 400 / 400 Intake: IV Fluids 1000 / 1000 1000 / 1000 0.9 % Sodium Chloride 1, 1000 / 1000 1000 / 1000 000 ML @ 75 mls/hr IVC . [id number] AIDA Rx#: [id number] Oral 1090 / 1090 360 / 360 0 / 0 Output: Urine 0 / 0 425 / 425 600 / 600 Other: Meal Lunch Dinner Percent of Meal Consumed 50% 5% # Voids 1 Weight 93.939 kg Patient Weight 10/12/16 23:59 Weight 93.939 kg - General Appearance Exam: Patient is alert and oriented. He is in no acute distress. Lungs somewhat diminished breath sounds otherwise clear to auscultation. Heart regular rate and rhythm with a 2/6 systolic ejection murmur. Abdomen shows normal bowel sounds to bruits masses organomegaly or tenderness. Lower extremities show no peripheral edema. Skin shows no abnormal skin rashes. Results - Lab Results 10/12/16 06:22 10/12/16 06:22 Most recent lab results Calcium 9.6 mg/dL (8.6-10.8) 10/12/16 06:22 Consult Discharge Plan - Plan Referrals: [facility] [Outside] - 10/19/16 3:15 pm
[2016-10-12] MEDS: Gabapentin 300 MG CAPSULE PO SCH (08:06)
[2016-10-12] MEDS: Diltiazem CD (24hr) 120 MG CAPSULE PO SCH (08:06)
[2016-10-12] MEDS: Aspirin Enteric Coated 81 MG Tablet PO SCH (08:06)
--- NOTE | 2016-10-12 09:54 | Cardiology Consult Note ---
Date of Encounter: 10/12/16 Time of Encounter: 08:30 Assessment and Plan (1) Acute renal failure Current Visit: Yes Status: Acute Per cardiology: -Acute renal failure. -Creatinine on admission 3.63, baseline creatinine 1.5-1.8 -Creatinine today 1.74. -Nephrology has been consulted. -Management per primary and nephrology services. Qualifiers: Acute renal failure type: unspecified Qualified Code(s): N17.9 - Acute kidney failure, unspecified (2) Elevated troponin Current Visit: Yes Status: Acute Per cardiology: -Elevated troponin 0.06, 0.07, 0.05. Troponins flat and adynamic in the setting of acute renal failure. -On asa, statin, beta is[place]. -Echo 07/2016 with LVEF 55%, atypical septal motion consistent with bundle branch block, inderterminate diastolic function, moderately dilated RV with normal function, severely dilated left atrium, severely dilated right atrium, mild MR, moderate TR, moderate-severe PH, all wall segments with normal motion. -Denies chest pain, shortness of breath. States fatigue has improved since admission -Do not suspect NSTEMI, suspect demand ischemia related to acute renal failure. NO cardiac rehab warranted at this time. (3) Afib Current Visit: Yes Status: Chronic Per cardiology: -Known atrial fibrillation. -ON beta [place] and calcium channel [place]. -Digoxin was stopped due to acute renal failure at admission. -HR controlled this admission with Hrs 60-70s. -Average HR previous 12 hours noted to be 63. -Denies palpitation/fluttering. -Echo as above. -Of note, admission in July for ICD shock for atrial fibrillation with RVR. No RVR noted this admission. -[id number] score 3 (age,HTN). On coumadin. COumadin being dosed by pharmacy while inpatient. -Agree with discontinuation of digoxin due to acute renal failure. -Recommend continuing current regimen. -Cardiology will sign off and will follow up in outpatient setting. Follow up set. Qualifiers: Atrial fibrillation type: chronic Qualified Code(s): I48.2 - Chronic atrial fibrillation (4) Hypertension Current Visit: Yes Status: Chronic Per cardiology: -Known hypertension. -BPs 130-150s systolic. -ON beta [place] and calcium channel [place]. -Will continue to monitor in outpatient setting. -Can consider further titration of anti-hypertensives. Qualifiers: Hypertension type: essential hypertension Qualified Code(s): I10 - Essential (primary) hypertension Discussion w patient/family: The assessment and plan as outlined above was discussed with the patient and/or family members who expressed understanding and agreement. All questions were answered. Thank you for involving us in the care of your patient. Please call with any questions. Discussed and reviewed with Dr.John Obregon. History of Present Illness Consult date: 10/11/16 Requesting physician: Jannette Lazaro Consult reason: atrial fibrillation Chief complaint: weakness History of present illness: Mr. Castanon is a 86 year old male with a relevant past medical history of HTN, CHF, carotid stenosis, atrial fibrillation, pacemaker/ICD, CEA. Patient states he was at home and he started feeling very weak. Patient states all he wanted to do was lay down. states patient tried on lay on the floor. states she could not get him up, so she called the squad. Patient was admitted to [facility] for acute renal failure. Of note, patient with recent hospitalization for ICD shock due to atrial fibrillation with RVR. Cardiology has been consulted for atrial fibrillation. Patient was on toprol and digoxin. Digoxin has been stopped due to acute renal failure. Patient denies chest pain. Patient denies ICD shocks. Patient denies palpitations/fluttering. Patient denies shortness of breath and states fatigue has improved since admission. Past Med Surg Social Fam HX - Past Medical History Attestation: Yes The following information was validated with the patient. Source: patient, old records reviewed, obtained from family Medical history: atrial fibrillation, CHF, COPD, GI bleed, hyperlipidemia, hypertension, renal disease Psychiatric history: no psych history - Past Surgical History Surgical History: knee replacement, pacemaker/AICD - Social History Smoking Status: Former smoker Smokeless Tobacco Status: No Alcohol use: none Drug use: none - Family History Mother Living Status: Father Living Status: Hx Family Cardiac Disorders: Yes ([place]) Hx Family Respiratory Disorders: No Hx Family Cancer: No Hx Family GI Disorders: No Hx Family Endocrine Disorder: No Hx Family Neuromuscular Disorders: No Hx Family Neurologic Disorders: No Hx Family HEENT Disorders: No Hx Family Autoimmune Disorders: No Medications and Allergies Allopurinol [Zyloprim] 100 mg PO QAM 03/29/15 [History] Gabapentin [Neurontin] 300 mg PO TID 03/29/15 [History] Gluc/Heladio-MSM#1/C/Hans/Leonidas/Bor [Osteo Bi-Flex Caplet] 1 tab PO BID 03/29/15 [ History] Pravastatin Sodium [Pravachol] 20 mg PO HS 03/29/15 [History] Melatonin/Pyridoxine HCl (B6) [Melatonin 3 mg Tablet] 3 mg PO HS 08/15/16 [ History] Pantoprazole Sodium [Protonix] 40 mg PO DAILY 08/15/16 [History] hydrOXYzine HCl [Hydroxyzine HCl] 25 mg PO TID 08/15/16 [History] Aspirin Enteric Coated [Aspirin EC] 81 mg PO DAILY 09/04/16 [History] Digoxin [Lanoxin] 0.125 mg PO QAM 09/04/16 [History] Lisinopril [Zestril] 20 mg PO BID 09/04/16 [History] Metoprolol XL (24 HR) Succ [Toprol Xl] 125 mg PO BID 09/04/16 [History] Potassium Chloride [Klor-Con 10] 20 meq PO DAILY 09/04/16 [History] Tolterodine LA (24 HR) [Detrol LA] 4 mg PO HS 09/04/16 [History] Docusate [Colace] 100 mg PO DAILY PRN #30 capsule 09/06/16 [Rx] Ferrous Sulfate 325 mg PO BIDWM #60 tablet 09/06/16 [Rx] Furosemide [Lasix] 40 mg PO DAILY #60 tab 09/06/16 [Rx] Albuterol Neb [Proventil Neb] 2.5 mg IH QID PRN 10/08/16 [History] Mometasone Furoate [Asmanex] 220 mcg IH BID 10/08/16 [History] [place] Xtr/Zinc Picolin [Saw [place] Capsule] 1 each PO DAILY 10/08/16 [ History] Spironolactone [Aldactone] 25 mg PO DAILY 10/08/16 [History] Warfarin [Coumadin] 4 mg PO SUMOWEFRSA 10/08/16 [History] Warfarin [Coumadin] 6 mg PO TUTH 10/08/16 [History] Allergies No Known Allergies Allergy (Verified 09/04/16 13:47) All Systems Review: A 10-system review of systems was performed and is negative for pertinent findings except as documented above in the HPI. - Constitutional Constitutional: weakness - Cardiovascular Cardiovascular: as per HPI Physical Examination Vital Signs, Last 4 Hours Temp Pulse Resp BP Pulse Ox 10/12/16 07:00 97.8 F 75 17 137/66 95 General: Conversant, No Apparent Distress HEENT: Atraumatic, Normocephaly, Mucus Membranes Moist Neck: No JVD, Normal carotid pulses Cardiac: Normal S1 and S2, No Murmur, Other (Irregularly, irregular) Lungs: Normal Breath Sounds, No Wheeze, Rales, Rhonchi Neuro: Alert and responsive, No focal deficits noted Abdomen: Soft, Non-Tender Skin: No rashes noted on visualized skin Musculoskeletal: No Chest Wall Tenderness Extremities: No Clubbing, No Cyanosis, No Edema, Normal Pulses Results 10/12/16 06:22 10/12/16 06:22 Lab Results Active Medications Acetaminophen (Tylenol) 650 mg PO Q6HR PRN PRN Reason: Mild Pain (1-3) Stop: 04/09/17 23:33 Allopurinol (Zyloprim) 100 mg PO QAM [facility] Stop: 04/10/17 09:01 Last Admin: 10/12/16 08:06 Dose: 100 mg Aspirin (Aspirin Ec) 81 mg PO DAILY [facility] Stop: 04/10/17 09:01 Last Admin: 10/12/16 08:06 Dose: 81 mg Beclomethasone Dipropionate (Qvar 80 Mcg) 1 puff IH BIDRESP [facility] Stop: 04/10/17 10:01 Last Admin: 10/11/16 19:18 Dose: 1 puff Diltiazem HCl (Cardizem Cd) 120 mg PO DAILY [facility] Stop: 04/12/17 13:31 Last Admin: 10/12/16 08:06 Dose: 120 mg Docusate Sodium (Colace) 100 mg PO DAILY PRN; Protocol PRN Reason: Constipation Stop: 04/10/17 01:21 Ferrous Sulfate (Ferrous Sulfate) 325 mg PO BIDWM [facility] Stop: 04/10/17 08:01 Last Admin: 10/12/16 08:06 Dose: 325 mg Gabapentin (Neurontin) 300 mg PO BID [facility] Stop: 04/10/17 21:01 Last Admin: 10/12/16 08:06 Dose: 300 mg Sodium Chloride (0.9 % Sodium Chloride) 1,000 mls @ 75 mls/hr IVC .[id number] [facility] Stop: 04/09/17 23:46 Last Admin: 10/12/16 02:24 Dose: Not Given Metoprolol Tartrate (Lopressor) 125 mg PO BID [facility] Stop: 04/10/17 21:01 Last Admin: 10/12/16 08:06 Dose: 125 mg Naloxone HCl (Narcan) 0.4 mg IVP Q2MIN PRN PRN Reason: Opioid Reversal Stop: 04/09/17 23:33 Omeprazole (Prilosec) 20 mg PO DAILY [facility] Stop: 04/10/17 09:01 Last Admin: 10/12/16 08:06 Dose: 20 mg Ondansetron HCl (Zofran) 4 mg IVP Q6HR PRN PRN Reason: Nausea And Vomiting Stop: 04/09/17 23:33 Simvastatin (Zocor) 10 mg PO HS [facility] Stop: 04/10/17 21:01 Last Admin: 10/11/16 21:12 Dose: 10 mg Tolterodine Tartrate (Detrol La) 4 mg PO HS [facility] Stop: 04/10/17 21:01 Last Admin: 10/11/16 21:12 Dose: 4 mg Warfarin Sodium (Coumadin) 3 mg PO DAILY@1800 [facility] Stop: 04/12/17 18:01 Last Admin: 10/11/16 16:42 Dose: 3 mg Warfarin Sodium (Coumadin Perpt) 1 each PO DAILY@1800 PRN PRN Reason: SEE COMMENTS Stop: 04/12/17 18:01 Laboratory Tests 10/08/16 10/08/16 10/09/16 20:50 20:50 00:50 Hgb INR 6.2 H* Creatinine 3.63 H Troponin I 0.06 H* 10/09/16 10/09/16 10/12/16 00:50 06:34 06:22 Hgb 12.0 L D INR Creatinine Troponin I 0.07 H* 0.05 H* 10/12/16 10/12/16 06:22 06:22 Hgb INR 1.8 Creatinine 1.74 H Troponin I - Imaging and Cardiology Chest Xray: report reviewed Echo: report reviewed - EKG Interpretation EKG results cardiology: personally reviewed (ECG with atrial fibrillation, HR 71.), other (Telemetry reviewed with average HR 63, mostly paced with intermittent SR. PACS noted.) Consult Discharge Plan - Plan Referrals: [facility] [Outside] - 10/19/16 3:15 pm
[2016-10-12] MEDS: Beclomethasone 80mcg MDI IH SCH (10:47)
--- NOTE | 2016-10-12 14:26 | Discharge Summary ---
Date of Encounter: 10/12/16 Time of Encounter: 14:20 - Discharge Diagnosis (1) Afib Priority: Secondary Status: Chronic Qualifiers: Atrial fibrillation type: chronic Qualified Code(s): I48.2 - Chronic atrial fibrillation (2) Hypertension Priority: Secondary Status: Chronic Qualifiers: Hypertension type: essential hypertension Qualified Code(s): I10 - Essential (primary) hypertension (3) CAD (coronary artery disease) Priority: Secondary Status: Chronic Qualifiers: Coronary Disease-Associated Artery/Lesion type: unspecified vessel or lesion type [place] vs. transplanted heart: [place] heart Associated angina: without angina Qualified Code(s): I25.10 - Atherosclerotic heart disease of [place] coronary artery without angina pectoris (4) CHF (congestive heart failure) Priority: Secondary Status: Chronic Qualifiers: Congestive heart failure type: diastolic Congestive heart failure chronicity: chronic Qualified Code(s): I50.32 - Chronic diastolic (congestive ) heart failure (5) COPD (chronic obstructive pulmonary disease) Priority: Secondary Status: Chronic Qualifiers: COPD type: chronic bronchitis Chronic bronchitis type: simple Qualified Code(s): J41.0 - Simple chronic bronchitis (6) CKD (chronic kidney disease) Priority: Secondary Status: Chronic Qualifiers: Chronic kidney disease stage: stage 3 (moderate) Qualified Code(s): N18.3 - Chronic kidney disease, stage 3 (moderate) (7) Acute renal failure Priority: Primary Status: Acute Qualifiers: Acute renal failure type: unspecified Qualified Code(s): N17.9 - Acute kidney failure, unspecified (8) Elevated troponin Priority: Primary Status: Acute - Discharge Medications Prescriptions: Diltiazem CD (24hr) [Cardizem CD] 120 mg PO DAILY #30 cap.er.24h Warfarin [Coumadin] 3 mg PO 1800 #30 tablet Home Medications: Allopurinol [Zyloprim] 100 mg PO QAM 03/29/15 [History] Gabapentin [Neurontin] 300 mg PO TID 03/29/15 [History] Gluc/Heladio-MSM#1/C/Hans/Leonidas/Bor [Osteo Bi-Flex Caplet] 1 tab PO BID 03/29/15 [ History] Pravastatin Sodium [Pravachol] 20 mg PO HS 03/29/15 [History] Melatonin/Pyridoxine HCl (B6) [Melatonin 3 mg Tablet] 3 mg PO HS 08/15/16 [ History] Pantoprazole Sodium [Protonix] 40 mg PO DAILY 08/15/16 [History] hydrOXYzine HCl [Hydroxyzine HCl] 25 mg PO TID 08/15/16 [History] Aspirin Enteric Coated [Aspirin EC] 81 mg PO DAILY 09/04/16 [History] Metoprolol XL (24 HR) Succ [Toprol Xl] 125 mg PO BID 09/04/16 [History] Tolterodine LA (24 HR) [Detrol LA] 4 mg PO HS 09/04/16 [History] Docusate [Colace] 100 mg PO DAILY PRN #30 capsule 09/06/16 [Rx] Ferrous Sulfate 325 mg PO BIDWM #60 tablet 09/06/16 [Rx] Furosemide [Lasix] 40 mg PO DAILY #60 tab 09/06/16 [Rx] Albuterol Neb [Proventil Neb] 2.5 mg IH QID PRN 10/08/16 [History] Mometasone Furoate [Asmanex] 220 mcg IH BID 10/08/16 [History] Saw [place] Xtr/Zinc Picolin [Saw [place] Capsule] 1 each PO DAILY 10/08/16 [ History] Diltiazem CD (24hr) [Cardizem CD] 120 mg PO DAILY #30 cap.er.24h 10/12/16 [Rx] Warfarin [Coumadin] 3 mg PO 1800 #30 tablet 10/12/16 [Rx] Allergies/Adverse Reactions: Allergies No Known Allergies Allergy (Verified 09/04/16 13:47) Date of admission: 10/08/16 23:13 Primary care physician: PCP PA Consults: 10/11/16 11:38 Consult to Cardiology [CONS] Routine Comment: Consulting Provider: Cardiology Hilda Reason for Consult: A-fib Call Completed: No 10/11/16 11:41 Consult to Nephrology [CONS] Routine Consulting Provider: Jannette Lazaro Reason for Consult: underlying CKD Call Completed: No Discharging clinician: Jannette Lazaro Anticipated date of discharge: 10/12/16 - Patient Status Disposition: Home, Self-Care Overall status at discharge: patient is back to baseline - Discharge Instructions Follow Up With: [facility] [Outside] - 10/19/16 3:15 pm Additional Instructions: Patient will follow with nephrology cardiology and family doctor next week. Patient is advised to get pro time/INR and basic metabolic panel checked 2 times a week starting 10/21/2016 and follow those results with his family doctor and batterboard setter. Patient to hold off on his diuretics including Lasix and Aldactone and potassium for a week at least and resume after consulting with his batterboard setter and primary care doctor. Patient to return to ER if symptoms worsen. - Diet and Activity Activity: increase activity as tolerated Diet: advance to your usual diet Interval History: Patient Mr. Sha Castanon presented with acute renal failure and not feeling well and having involuntary muscle movements. His creatinine which in July this year was in the range of 1.5-1.7 jump up to 3.6 while the Miah was also in toxic range. Patient diuretics including Lasix and Aldactone and potassium and digoxin was put on hold and we will gently hydrate the patient. Since then gradually his creatinine was and potassium is coming down. Today his creatinine is 1.74 which is close to his baseline. I have recommended him to continue consuming significant amount of liquids and hold off on his diuretics for another week and then consult with Dr. Obregon his batterboard setter before restarting those medications. His INR was elevated in the range of 6 therefore I have reduced his Coumadin 3 mg daily and he should have his PT/INR and a basic metabolic check 2 times a week starting this coming Saturday and follow the results with his family doctor and his batterboard setter for further adjustment of Coumadin dose and other medication. At this time patient is asymptomatic and Lipitor 80 and human dynamically stable. Since his lisinopril and digoxin was stopped therefore we have restarted Cardizem which has controlled his heart rate down very well but also keep his blood pressure down nicely. This will be changed as per discretion of primary care doctor batterboard setter. Patient was offered to stay another day however he declined and eager to get out of hospital. Hospital course: Mr. Castanon is a 86 year old male - Time Spent with Patient Total time spent providing and/or coordinating discharge services: Greater than 30 minutes - Constitutional Vitals: Temp Pulse Resp BP Pulse Ox 97.3 F L 62 16 134/81 95 10/12/16 10:46 10/12/16 10:46 10/12/16 10:47 10/12/16 10:46 10/12/16 10:47 - Head Head exam: Present: atraumatic, normocephalic - Eye Eye exam: Present: PERRL, conjuntiva pink, sclera anicteric Pupils: Present: PERRL - Neck Neck exam general surgery: Present: supple, trachea midline. Absent: lymphadenopathy - Respiratory Respiratory exam: Present: CTAB. Absent: accessory muscle use, rales, rhonchi, wheezes - Cardiovascular Cardiovascular exam: Present: irregular rhythm, +S1, +S2. Absent: diastolic murmur, gallop, rubs, systolic murmur - GI/Abdominal GI/Abdominal exam: Present: normal bowel sounds, soft, no peritoneal signs. Absent: distended, tenderness - Extremities Exam Extremities exam: Present: warm, radial pulses palpable and symetrical. Absent : calf tenderness, cyanotic, pedal edema - Neurological Exam Neurological exam: Present: CN II-XII intact, oriented X3, no focal deficits. Absent: pronater drift, facial droop, speech deficit - Skin Skin exam: Present: dry, intact - VTE Documentation of Mechanical Device: Graduated compression elastic hosiery
[2016-10-12 15:20] VITALS: BP 152/75
[2016-10-12] MEDS ORDERED: *HR* Warfarin 4 MG TABLET PO ONE (18:00)
== END 2016-10-12 18:22 | disposition home or self-care (01) | DRG 683 ==
LOC: EMEROO 20:14 → 3ANU 20:14
PROVIDERS: ADMIT Internal Medicine Endocrinology, Diabetes & Metabolism; ATTEND Internal Medicine Endocrinology, Diabetes & Metabolism

== ENCOUNTER 2017-01-15 09:06 | Inpatient (IN) ==
[2017-01-15] MEDS ORDERED: Furosemide 40 MG/4 ML VIAL IVP ONE (09:18)
--- NOTE | 2017-01-15 09:22 | Emergency Department Note ---
Disposition Clinical Impression: CKD (chronic kidney disease) Qualifiers: Chronic kidney disease stage: unspecified stage Qualified Code(s): N18.9 - Chronic kidney disease, unspecified CHF (congestive heart failure) Qualifiers: Congestive heart failure type: unspecified congestive heart failure type Congestive heart failure chronicity: acute Qualified Code(s): I50.9 - Heart failure, unspecified Disposition: Admitted As Inpatient Condition: Fair [facility]errals: [facility] [Primary Care Provider[facility] - Forms: ED Satisfaction Letter Time of Disposition: 11:34 SOB HPI - General Chief Complaint: ED Shortness of Breath/Dyspnea Stated Complaint: Edema Time Seen by Provider: 01/15/17 09:18 Source: patient Mode of arrival: wheelchair Limitations: no limitations Nursing Notes Reviewed: Yes Vital Signs Reviewed: Yes - History of Present Illness 86-year-old male who presents to emergency department with increasing shortness of breath from his doctor's office. The patient states he's been on a lot of fluid weight. Patient denies a history of CHF although when I review his records and notes chronic congestive heart failure and stage III renal disease. I did review an echo from July 2016 shows EF of 55%. Patient states he's had increasing exertional dyspnea. He denies any chest pain. Pt Subjective Complaint: shortness of breath Onset (ago): day(s) Context: occurred during exertion Severity: moderate Consistency/Duration: constant Improves with: rest Worsens with: exertion Known history of: congestive heart failure Associated symptoms: Reports: polyuria. Denies: chest pain, fever Treatment prior to arrival: diuretics - Related Data Home Medications Medication Instructions Recorded Confirmed Allopurinol [Zyloprim] 100 mg PO QAM 03/29/15 10/08/16 Gabapentin [Neurontin] 300 mg PO TID 03/29/15 10/08/16 Gluc/Heladio-MSM#1/C/Hans/Leonidas/Bor 1 tab PO BID 03/29/15 10/08/16 [Osteo Bi-Flex Caplet] Pravastatin Sodium [Pravachol] 20 mg PO HS 03/29/15 10/08/16 Melatonin/Pyridoxine HCl (B6) 3 mg PO HS 08/15/16 10/08/16 [Melatonin 3 mg Tablet] Pantoprazole Sodium [Protonix] 40 mg PO DAILY 08/15/16 10/08/16 hydrOXYzine HCl [Hydroxyzine HCl] 25 mg PO TID 08/15/16 10/08/16 Aspirin Enteric Coated [Aspirin EC] 81 mg PO DAILY 09/04/16 10/08/16 Metoprolol XL (24 HR) Succ [Toprol 125 mg PO BID 09/04/16 10/09/16 Xl] Tolterodine LA (24 HR) [Detrol LA] 4 mg PO HS 09/04/16 10/08/16 Albuterol Neb [Proventil Neb] 2.5 mg IH QID PRN 10/08/16 10/08/16 Mometasone Furoate [Asmanex] 220 mcg IH BID 10/08/16 10/08/16 Saw [place] Xtr/Zinc Picolin [Saw 1 each PO DAILY 10/08/16 10/08/16 [place] Capsule] Previous Rx's Medication Instructions Recorded Docusate [Colace] 100 mg PO DAILY PRN #30 capsule 09/06/16 Ferrous Sulfate 325 mg PO BIDWM #60 tablet 09/06/16 Furosemide [Lasix] 40 mg PO DAILY #60 tab 09/06/16 Diltiazem CD (24hr) [Cardizem CD] 120 mg PO DAILY #30 cap.er.24h 10/12/16 Warfarin [Coumadin] 3 mg PO 1800 #30 tablet 10/12/16 Allergies Allergy/AdvReac Type Severity Reaction Status Date / Time No Known Allergies Allergy Verified 09/04/16 13:47 All systems ED: reviewed and negative except as stated. Constitutional: Reports: weight change (Weight gain). Denies: fever, chills, weakness Eyes: Denies: eye pain, eye discharge, vision change ENT ED: Denies: ear pain, throat pain, dental pain, hearing loss, epistaxis, congestion, dysphagia Cardiovascular: Denies: chest pain, palpitations, dyspnea on exertion, edema, syncope Respiratory: Reports: dyspnea. Denies: cough, wheezes, hemoptysis, stridor Gastrointestinal: Denies: abdominal pain, nausea, vomiting, diarrhea, constipation, hematemesis, melena, hematochezia Genitourinary: Denies: urgency, dysuria, frequency, hematuria Musculoskeletal: Denies: back pain, neck pain, arthralgia, myalgia Integumentary: Denies: rash, abrasion, lesions Neurological: Denies: headache, weakness, numbness, paresthesias, confusion, abnormal gait, vertigo Psychiatric: Denies: anxiety, depression, suicidal thoughts, homicidal thoughts , auditory hallucinations, visual hallucinations Endocrine: Denies: fatigue Hematological/Lymphatic: Denies: easy bleeding, easy bruising Allergic/Immunologic: Denies: facial swelling, urticaria Past Medical History - Past Medical History Medical history: Reports: atrial fibrillation, CHF, COPD, GI bleed, hyperlipidemia, hypertension, renal disease Surgical history: Reports: knee replacement, pacemaker/AICD Psychiatric history: Reports: no psych history - Social History Smoking Status: Former smoker Smokeless Tobacco Status: No Alcohol use: Reports: none Drug use: Reports: none Physical Exam - General Limitations: no limitations General appearance: in no apparent distress - Head Head exam: atraumatic, normocephalic, normal inspection - Eye Eye exam: Present: normal appearance, PERRL, EOMI - ENT ENT exam: normal exam, normal oropharynx, mucous membranes moist - Neck Neck exam: Present: normal inspection, full ROM, trachea midline - Chest Chest inspection: Present: normal inspection, symmetric chest wall rise - Respiratory Respiratory exam: Present: other (Rales present) - Cardiovascular Cardiovascular exam: Present: irregular rhythm - Abdominal Exam Abdominal exam: Present: soft, Non-Tender. Absent: tenderness, distention, guarding, rebound, rigidity - Extremities Exam Extremities exam: Present: pedal edema - Expanded Lower Extremity Exam Neurovascular/Tendon exam: Absent: motor deficit, sensory deficit, tendon deficit Gait: antalgic - Back Exam Back exam: Present: normal inspection, full ROM. Absent: tenderness - Neurological Exam Neurological exam: Present: alert, oriented X3 - Psychiatric Psychiatric exam: Present: normal affect, normal mood - Skin Skin exam: Present: warm, dry, intact, normal color Course - Reevaluation(s) Reevaluation #1: 86-year-old whose had worsening renal function along with the increased weight gain. Findings on exam are consistent with CHF. His BNP is elevated at 510. Creatinine is 2.10. Patient will be admitted for an exacerbation of congestive changes. Time: 11:33 - Consultations Consultation #1: Discussed with Dr. Kohler, admit Time: 11:33 Vital Signs Temperature 98 F 01/15/17 09:12 Pulse Rate 74 01/15/17 09:12 Respiratory Rate 18 01/15/17 09:12 Blood Pressure 117/75 01/15/17 09:12 O2 Sat by Pulse Oximetry 98 01/15/17 09:12 Temperature 98 F 01/15/17 09:12 Pulse Rate 72 01/15/17 09:26 Respiratory Rate 18 01/15/17 09:26 Blood Pressure 108/71 01/15/17 09:26 O2 Sat by Pulse Oximetry 98 01/15/17 09:50 Oxygen Delivery Oxygen Delivery Room Air Shortness of Breath/Dyspnea - Lab Data Result diagrams: 01/15/17 09:41 01/15/17 09:41 Lab Results 01/15/17 01/15/17 01/15/17 Range/Units 09:41 09:41 09:41 WBC 8.2 (4.3-11.1) K/mcL RBC 4.37 (4.19-5.50) M/mcL Hgb 12.8 L (12.9-16.9) g/dL Hct 40.1 (37.5-50.1) % MCV 91.8 (83.0-100.0) fL MCH 29.3 (28.0-33.3) pg MCHC 31.9 (31.6-35.5) g/dL RDW 18.9 H (11.5-14.5) % Plt Count 109 L (140-400) K/mcL MPV 13.0 H (9.4-12.4) fL Immature Gran % 0.2 (0-4) % Seg Neutrophils % 69.0 % Lymphocytes % 15.7 % Monocytes % 10.3 % Eosinophils % 4.2 % Basophils % 0.6 % Neutrophils # 5.6 (1.6-8.9) K/mcL Lymphocytes # 1.3 (0.6-4.6) K/mcL Monocytes # 0.8 (0.0-1.3) K/mcL Eosinophils # 0.3 (0.0-0.6) K/mcL Basophils # 0.1 (0.0-0.2) K/mcL Sodium 141 (136-145) mEq/L Potassium 3.2 L (3.5-4.5) mEq/L Chloride 99 (98-109) mEq/L Carbon Dioxide 31 H (19-29) mEq/L BUN 28 H (8-26) mg/dL Creatinine 2.05 H (0.72-1.25) mg/dL Est GFR ( Amer) 38 L (> 60) Est GFR (Non-Af Amer) 31 L (> 60) BUN/Creatinine Ratio 14 (6-26) Glucose 80 (70-99) mg/dL Calculated Osmolality 296 (280-300) Lactic Acid 1.4 (0.5-2.2) mmol/L Calcium 9.7 (8.6-10.8) mg/dL Troponin I (0-0.03) ng/mL B-Natriuretic Peptide (0-100) pg/mL 01/15/17 01/15/17 Range/Units 09:41 09:41 WBC (4.3-11.1) K/mcL RBC (4.19-5.50) M/mcL Hgb (12.9-16.9) g/dL Hct (37.5-50.1) % MCV (83.0-100.0) fL MCH (28.0-33.3) pg MCHC (31.6-35.5) g/dL RDW (11.5-14.5) % Plt Count (140-400) K/mcL MPV (9.4-12.4) fL Immature Gran % (0-4) % Seg Neutrophils % % Lymphocytes % % Monocytes % % Eosinophils % % Basophils % % Neutrophils # (1.6-8.9) K/mcL Lymphocytes # (0.6-4.6) K/mcL Monocytes # (0.0-1.3) K/mcL Eosinophils # (0.0-0.6) K/mcL Basophils # (0.0-0.2) K/mcL Sodium (136-145) mEq/L Potassium (3.5-4.5) mEq/L Chloride (98-109) mEq/L Carbon Dioxide (19-29) mEq/L BUN (8-26) mg/dL Creatinine (0.72-1.25) mg/dL Est GFR ( Amer) (> 60) Est GFR (Non-Af Amer) (> 60) BUN/Creatinine Ratio (6-26) Glucose (70-99) mg/dL Calculated Osmolality (280-300) Lactic Acid (0.5-2.2) mmol/L Calcium (8.6-10.8) mg/dL Troponin I 0.01 (0-0.03) ng/mL B-Natriuretic Peptide 510 H (0-100) pg/mL - EKG Data EKG attestation: Yes I reviewed and interpreted this EKG. Rate: Reports: normal Rhythm: Reports: A.Fib [place]/QRS: Reports: RBBB (Incomplete) QRS morphology: Reports: poor R-wave progression Interpretation: Reports: no acute changes
[2017-01-15 09:56] LABS: Basophils # 0.1 K/mcL (0.0-0.2); Basophils % 0.6 %; Eosinophils # 0.3 K/mcL (0.0-0.6); Eosinophils % 4.2 %; Hematocrit 40.1 % (37.5-50.1); Hemoglobin 12.8 g/dL (12.9-16.9); Immature Granulocytes % 0.2 % (0-4); Lymphocytes # 1.3 K/mcL (0.6-4.6); Lymphocytes % 15.7 %; Mean Corpuscular HGB Conc 31.9 g/dL (31.6-35.5); Mean Corpuscular Hemoglobin 29.3 pg (28.0-33.3); Mean Corpuscular Volume 91.8 fL (83.0-100.0); Monocytes # 0.8 K/mcL (0.0-1.3); Monocytes % 10.3 %; Neutrophils # 5.6 K/mcL (1.6-8.9); Platelet Count 109 K/mcL (140-400); Red Blood Count 4.37 M/mcL (4.19-5.50); Red Cell Distribution Width 18.9 % (11.5-14.5)
[2017-01-15 10:07] LABS: Calcium 9.7 mg/dL (8.6-10.8); Potassium 3.2 mEq/L (3.5-4.5)
[2017-01-15] MEDS ORDERED: Acetaminophen 325 MG TABLET PO PRN (12:46)
[2017-01-15] MEDS ORDERED: Naloxone 0.4 MG/ML INJ IVP PRN (12:46)
[2017-01-15] MEDS ORDERED: Albuterol 2.5 MG/3 ML NEBULIZER IH PRN (12:51)
--- NOTE | 2017-01-15 13:18 | Internal Med History&Physical ---
<DiorTisha M - Last Filed: 01/15/17 13:13> Date of Encounter: 01/15/17 Time of Encounter: 13:14 Assessment and Plan (1) Acute on chronic congestive heart failure Current visit: Yes Status: Acute Patient with increased shortness of breath, weight gain and edema. He reports he is compliant with a low salt diet and his diuretics have been increased by his PCP without improvment in symptoms. Echo from 07/2016 showed EF of 55%, indeterminate diastolic function, severely dilated atria, moderate to severe pulmonary hypertension. BNP elevated today at 510. CXR shows small right effusion, mild bibasilar atelectasis. Lasix 40mg IVP BID Metolazone 2.5mg PO daily daily weights strict I/Os cardiac diet with 1.5L fluid restriction Continuous monitor and storage bin tender. echocardiogram. Qualifiers: Congestive heart failure type: diastolic Qualified Code(s): I50.33 - Acute on chronic diastolic (congestive) heart failure (2) Acute kidney injury superimposed on CKD Current visit: Yes Status: Acute Mild LIBERTY as Creatinine of 2.05 up from previous of 1.9. Will hold lisinopril, avoid nsaids and other nephrotoxins and check labs daily. (3) Afib Current visit: Yes Status: Chronic Patient with afib on metoprolol and diltiazem for rhythm and rate control and on coumadin for anticoagulation. Will check PT/INR/PTT daily and have pharmacy dose coumadin. Continue home doses of metorprolol and diltiazem. Qualifiers: Atrial fibrillation type: chronic Qualified Code(s): I48.2 - Chronic atrial fibrillation (4) Hypokalemia Current visit: Yes Status: Acute potassium of 3.2. 40mEq of PO potassium ordered. Recheck chemistry daily. (5) DVT prophylaxis Current visit: Yes Status: Acute anti-embolic stockings patient on coumadin for afib, additional pharmacologic prophylaxis not warranted. Internal Medicine - H&P: HPI Chief complaint: shortness of breath Admitted From: Emergency Dept Plans for Post Hospital Care: Home History of present illness: Mr. Castanon is a 86 year old male with hypertension, hyperlipidemia, CHF, atrial fibrillation on Coumadin, COPD, history of GI bleed, CAD presents emergency room today with complaints of shortness of breath and lower extremity swelling. Patient reports that he has been experiencing shortness of breath especially with activity as well as increased lower extremity swelling over the last several weeks. Patient also reports a 10 pound weight gain over the last 2 weeks. Patient's diuretics have been increased by his primary care provider without any improvement in symptoms. He does report compliance with low salt diet. He denies any lightheadedness, headache, chest pain, palpitations. He reports a dry cough. He denies any nausea, vomiting, diarrhea, abdominal pain. He denies any fever, chills or sweats. Evaluation in emergency department revealed hypokalemia with potassium of 3.2. AK I with creatinine of 2.05 up from previous of 1.9. Troponin was negative at 0.01. BNP was elevated at 510. Chest x-ray showed small right pleural effusion, and mild bibasilar atelectasis. On exam, patient alert and oriented, in no acute distress. Heart has irregular rhythm, with controlled rate. Lungs have fine crackles in bilateral bases. BLE edema. Past Med Surg Social Fam HX - Past Medical History Medical history: atrial fibrillation, CHF, COPD, GI bleed, hyperlipidemia, hypertension, renal disease Psychiatric history: no psych history - Past Surgical History Surgical History: knee replacement, pacemaker/AICD, vascular surgery - Social History Smoking Status: Former smoker Smokeless Tobacco Status: No Alcohol use: none Drug use: none - Family History Mother Living Status: Father Living Status: Hx Family Cardiac Disorders: Yes ([place]) Hx Family Respiratory Disorders: No Hx Family Cancer: No Hx Family GI Disorders: No Hx Family Endocrine Disorder: No Hx Family Neuromuscular Disorders: No Hx Family Neurologic Disorders: No Hx Family HEENT Disorders: No Hx Family Autoimmune Disorders: No Internal Medicine - H&P: Meds Allopurinol [Zyloprim] 100 mg PO QAM 03/29/15 [History] Gabapentin [Neurontin] 300 mg PO TID 03/29/15 [History] Gluc/Heladio-MSM#1/C/Hans/Leonidas/Bor [Osteo Bi-Flex Caplet] 1 tab PO BID 03/29/15 [ History] Pravastatin Sodium [Pravachol] 20 mg PO HS 03/29/15 [History] Melatonin/Pyridoxine HCl (B6) [Melatonin 3 mg Tablet] 3 mg PO HS 08/15/16 [ History] Pantoprazole Sodium [Protonix] 40 mg PO DAILY 08/15/16 [History] hydrOXYzine HCl [Hydroxyzine HCl] 25 mg PO TID 08/15/16 [History] Aspirin Enteric Coated [Aspirin EC] 81 mg PO DAILY 09/04/16 [History] Metoprolol XL (24 HR) Succ [Toprol Xl] 150 mg PO BID 09/04/16 [History] Docusate [Colace] 100 mg PO DAILY PRN #30 capsule 09/06/16 [Rx] Ferrous Sulfate 325 mg PO BIDWM #60 tablet 09/06/16 [Rx] Furosemide [Lasix] 40 mg PO DAILY #60 tab 09/06/16 [Rx] Albuterol Neb [Proventil Neb] 2.5 mg IH QID PRN 10/08/16 [History] Mometasone Furoate [Asmanex] 220 mcg IH BID 10/08/16 [History] [place] Xtr/Zinc Picolin [S[place] Capsule] 1 each PO DAILY 10/08/16 [ History] Diltiazem CD (24hr) [Cardizem CD] 120 mg PO DAILY #30 cap.er.24h 10/12/16 [Rx] Digoxin [Lanoxin] 0.125 mg PO DAILY 01/15/17 [History] Lisinopril [Zestril] 10 mg PO BID 01/15/17 [History] Potassium Chloride [K-Tab ER] 20 meq PO DAILY 01/15/17 [History] Spironolactone [Aldactone] 25 mg PO DAILY 01/15/17 [History] Warfarin [Coumadin] 3 mg PO QAM 01/15/17 [History] 3 Allergy/AdvReac Type Severity Reaction Status Date / Time No Known Allergies Allergy Verified 09/04/16 13:47 All Systems PM: A 10-system review of systems was performed and is negative for pertinent findings except as documented above in the HPI. - Constitutional Constitutional: no chills, no fever(s), no night sweats - EENT Eyes: no change in vision, no discharge, no pain, no photophobia Ears: no ear discharge, no ear pain, no tinnitus Nose, mouth and throat: no dysphagia, no nasal discharge, no neck pain, no sore throat - Cardiovascular Cardiovascular ROS IM: dyspnea, dyspnea on exertion, edema, no chest pain, no diaphoresis, no lightheadedness, no palpitations, no syncope - Respiratory Respiratory: cough, dyspnea, dyspnea on exertion, wheezing, no excessive phlegm production - Gastrointestinal Gastrointestinal: no abdominal pain, no diarrhea, no hematemesis, no hematochezia, no melena, no nausea, no vomiting - Musculoskeletal Musculoskeletal ROS IM: no numbness, no tingling - Integumentary Integumentary IM: no rash, no unusual bruising - Neurological Neurological ROS: no confusion, no convulsions, no focal weakness, no numbness, no tingling, no tremor(s) - Hematologic/Lymphatic Hematologic/Lymphatic: no easy bruising - Constitutional Vitals: Temp Pulse Resp BP Pulse Ox 98.1 F 66 13 130/82 95 01/15/17 12:54 01/15/17 12:54 01/15/17 12:54 01/15/17 12:54 01/15/17 12:54 General appearance: Present: A&O X 3, pleasant, no acute distress - Head Head exam: Present: atraumatic, normocephalic - Eye Eye exam: Present: PERRL, conjuntiva pink, sclera anicteric Pupils: Present: PERRL - Neck Neck exam general surgery: Present: supple, trachea midline. Absent: lymphadenopathy - Respiratory Respiratory exam: Present: rales (fine crackles in bilateral bases). Absent: accessory muscle use, rhonchi, wheezes - Cardiovascular Cardiovascular exam: Present: irregular rhythm, +S1, +S2. Absent: diastolic murmur, gallop, rubs, systolic murmur - GI/Abdominal GI/Abdominal exam: Present: normal bowel sounds, soft, no peritoneal signs. Absent: distended, tenderness - Extremities Exam Extremities exam: Present: pedal edema (BLE edema), warm, radial pulses palpable and symmetrical. Absent: calf tenderness, cyanotic - Neurological Exam Neurological exam: Present: CN II-XII intact, oriented X3, no focal deficits. Absent: pronater drift, facial droop, speech deficit - Skin Skin exam: Present: dry, intact Internal Med - H&P Results - Labs CBC & Chem 7: 01/15/17 09:41 01/15/17 09:41 Labs: All Lab Results (24 Hours) 01/15/17 01/15/17 01/15/17 Range/Units 09:41 09:41 09:41 WBC 8.2 (4.3-11.1) K/mcL RBC 4.37 (4.19-5.50) M/mcL Hgb 12.8 L (12.9-16.9) g/dL Hct 40.1 (37.5-50.1) % MCV 91.8 (83.0-100.0) fL MCH 29.3 (28.0-33.3) pg MCHC 31.9 (31.6-35.5) g/dL RDW 18.9 H (11.5-14.5) % Plt Count 109 L (140-400) K/mcL MPV 13.0 H (9.4-12.4) fL Immature Gran % 0.2 (0-4) % Seg Neutrophils % 69.0 % Lymphocytes % 15.7 % Monocytes % 10.3 % Eosinophils % 4.2 % Basophils % 0.6 % Neutrophils # 5.6 (1.6-8.9) K/mcL Lymphocytes # 1.3 (0.6-4.6) K/mcL Monocytes # 0.8 (0.0-1.3) K/mcL Eosinophils # 0.3 (0.0-0.6) K/mcL Basophils # 0.1 (0.0-0.2) K/mcL Sodium 141 (136-145) mEq/L Potassium 3.2 L (3.5-4.5) mEq/L Chloride 99 (98-109) mEq/L Carbon Dioxide 31 H (19-29) mEq/L BUN 28 H (8-26) mg/dL Creatinine 2.05 H (0.72-1.25) mg/dL Est GFR ( Amer) 38 L (> 60) Est GFR (Non-Af Amer) 31 L (> 60) BUN/Creatinine Ratio 14 (6-26) Glucose 80 (70-99) mg/dL Calculated Osmolality 296 (280-300) Lactic Acid 1.4 (0.5-2.2) mmol/L Calcium 9.7 (8.6-10.8) mg/dL Troponin I (0-0.03) ng/mL B-Natriuretic Peptide (0-100) pg/mL 01/15/17 01/15/17 Range/Units 09:41 09:41 WBC (4.3-11.1) K/mcL RBC (4.19-5.50) M/mcL Hgb (12.9-16.9) g/dL Hct (37.5-50.1) % MCV (83.0-100.0) fL MCH (28.0-33.3) pg MCHC (31.6-35.5) g/dL RDW (11.5-14.5) % Plt Count (140-400) K/mcL MPV (9.4-12.4) fL Immature Gran % (0-4) % Seg Neutrophils % % Lymphocytes % % Monocytes % % Eosinophils % % Basophils % % Neutrophils # (1.6-8.9) K/mcL Lymphocytes # (0.6-4.6) K/mcL Monocytes # (0.0-1.3) K/mcL Eosinophils # (0.0-0.6) K/mcL Basophils # (0.0-0.2) K/mcL Sodium (136-145) mEq/L Potassium (3.5-4.5) mEq/L Chloride (98-109) mEq/L Carbon Dioxide (19-29) mEq/L BUN (8-26) mg/dL Creatinine (0.72-1.25) mg/dL Est GFR ( Amer) (> 60) Est GFR (Non-Af Amer) (> 60) BUN/Creatinine Ratio (6-26) Glucose (70-99) mg/dL Calculated Osmolality (280-300) Lactic Acid (0.5-2.2) mmol/L Calcium (8.6-10.8) mg/dL Troponin I 0.01 (0-0.03) ng/mL B-Natriuretic Peptide 510 H (0-100) pg/mL - Diagnostic Studies Chest x-ray Additional comments: Chest X-Ray 01/15/17 09:18 IMPRESSION: 1. Blunting of the right costophrenic angle suggesting a small effusion. Mild bibasilar linear atelectasis. D/ / Marvin Panda MD / Marvin Panda MD Interpreting Provider: Marvin Panda MD <Awais Kohler - Last Filed: 01/15/17 17:49> Date of Encounter: 01/15/17 Internal Medicine - H&P: HPI History of present illness: Mr. Castanon is a 86 year old male All Systems PM: A 10-system review of systems was performed and is negative for pertinent findings except as documented above in the HPI. - Constitutional Vitals: Temp Pulse Resp BP Pulse Ox 97.5 F L 63 16 119/74 95 01/15/17 16:02 01/15/17 16:02 01/15/17 16:02 01/15/17 16:02 01/15/17 16:02 Internal Med - H&P Results - Labs CBC & Chem 7: 01/15/17 09:41 01/15/17 09:41 - Attending Attestation I have personally performed a face to face evaluation on this patient and I discussed the assessment and plan with the nurse practitioner. I have reviewed and agree with the documented care plan. History and Exam by me shows: Mr. Castanon is a 86 year old male with hypertension, hyperlipidemia, CHF, atrial fibrillation on Coumadin, COPD, history of GI bleed, CAD presents emergency room today with complaints of shortness of breath and lower extremity swelling. Patient reports that he has been experiencing shortness of breath especially with activity as well as increased lower extremity swelling over the last several weeks. Patient also reports a 10 pound weight gain over the last 2 weeks. Patient's diuretics have been increased by his primary care provider without any improvement in symptoms. He does report compliance with low salt diet. He denies any lightheadedness, headache, chest pain, palpitations. He reports a dry cough. He denies any nausea, vomiting, diarrhea, abdominal pain. He denies any fever, chills or sweats. Evaluation in emergency department revealed hypokalemia with potassium of 3.2. AK I with creatinine of 2.05 up from previous of 1.9. Troponin was negative at 0.01. BNP was elevated at 510. Chest x-ray showed small right pleural effusion, and mild bibasilar atelectasis. Gen: A, A, O x 3 Chest: Mild crackles , rales + No wheezing Heart : S1 S2 +, RRR No murmurs a/p 1. Acute on chronic diastolic CHF exacerbation Cont IV diuresis with Lasix also added Metolazone 2,5mg daily stric I & O resumed all home meds 2. 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
[2017-01-15 13:56] LABS: INR 1.9; Prothrombin Time 21.1 Seconds (9.4-12.1)
[2017-01-15 13:59] LABS: Activated Partial Thrombo Time 42.9 Seconds (26.0-36.0)
[2017-01-15] MEDS: Gabapentin 300 MG CAPSULE PO SCH ×2 (14:16→20:46)
[2017-01-15] MEDS: metOLazone 2.5 MG TABLET PO SCH (14:18)
[2017-01-15] MEDS: Furosemide 40 MG/4 ML VIAL IVP SCH (16:47)
[2017-01-15] MEDS: *HR* Warfarin 3 MG TABLET PO SCH (16:48)
[2017-01-15] MEDS ORDERED: Warfarin perPT PO PRN (18:00)
[2017-01-15] MEDS: Metoprolol XL (24 HR) Succ 50 MG TAB.ER.24H PO SCH (20:47)
[2017-01-15] MEDS: Beclomethasone 80mcg MDI IH SCH (22:47)
[2017-01-16 06:15] LABS: INR 2.1; Prothrombin Time 23.3 Seconds (9.4-12.1)
[2017-01-16 06:29] LABS: Basophils % 0.3 %; Eosinophils # 0.4 K/mcL (0.0-0.6); Eosinophils % 4.4 %; Hematocrit 38.7 % (37.5-50.1); Hemoglobin 12.6 g/dL (12.9-16.9); Immature Granulocytes % 0.2 % (0-4); Lymphocytes # 1.6 K/mcL (0.6-4.6); Lymphocytes % 18.3 %; Mean Corpuscular HGB Conc 32.6 g/dL (31.6-35.5); Mean Corpuscular Hemoglobin 29.7 pg (28.0-33.3); Mean Corpuscular Volume 91.3 fL (83.0-100.0); Mean Platelet Volume 12.6 fL (9.4-12.4); Monocytes # 0.8 K/mcL (0.0-1.3); Monocytes % 9.2 %; Platelet Count 100 K/mcL (140-400); Red Blood Count 4.24 M/mcL (4.19-5.50); Red Cell Distribution Width 18.6 % (11.5-14.5); Segmented Neutrophils % 67.6 %
[2017-01-16 07:33] LABS: Calcium 9.8 mg/dL (8.6-10.8); Potassium 3.3 mEq/L (3.5-4.5)
[2017-01-16] MEDS: Diltiazem CD (24hr) 120 MG CAPSULE PO SCH (09:31)
[2017-01-16] MEDS: *HR* Digoxin 0.125 MG TABLET PO SCH (09:31)
[2017-01-16] MEDS: Gabapentin 300 MG CAPSULE PO SCH ×3 (09:31→20:45)
[2017-01-16] MEDS: Aspirin Enteric Coated 81 MG Tablet PO SCH (09:31)
[2017-01-16] MEDS: Furosemide 40 MG/4 ML VIAL IVP SCH ×2 (09:31→17:05)
[2017-01-16] MEDS: Metoprolol XL (24 HR) Succ 50 MG TAB.ER.24H PO SCH ×2 (09:32→20:45)
[2017-01-16] MEDS: metOLazone 2.5 MG TABLET PO SCH (09:32)
--- NOTE | 2017-01-16 09:57 | Electrocardiograph Report ---
[address] [place] [address] Test Date: 2017-01-15 Pat Name: Sha Castanon Department: 103 Room: 2A32 Gender: M Wrap Checker: : 1930 Requested By: Jonatan Caruso Order Number: [id number] Reading MD: Jhonny Pack MD Measurements Intervals [place] Rate: 76 P: PA: 0 QRS: 2 QRSD: 96 T: 23 QT: 417 QTc: 448 Interpretive Statements ATRIAL FIBRILLATION INCOMPLETE RIGHT BUNDLE BRANCH BLOCK ANTEROSEPTAL MYOCARDIAL INFARCTION, PROBABLY OLD Electronically Signed On 01-16-2017 9:55:48 EDT by Jhonny Pack MD
[2017-01-16] MEDS: Beclomethasone 80mcg MDI IH SCH ×2 (10:07→20:38)
--- NOTE | 2017-01-16 13:38 | Internal Med Progress Note ---
<Abhi Stone P - Last Filed: 01/16/17 17:38> Date of Encounter: 01/16/17 - Constitutional Vitals: Temp Pulse Resp BP Pulse Ox 97.8 F 59 20 133/79 93 01/16/17 15:05 01/16/17 15:05 01/16/17 15:05 01/16/17 15:05 01/16/17 15:05 Internal Medicine: Result - Labs CBC & Chem 7: 01/16/17 05:53 01/16/17 05:53 Labs: Short CBC 01/16/17 Range/Units 05:53 WBC 8.9 (4.3-11.1) K/mcL Hgb 12.6 L (12.9-16.9) g/dL Hct 38.7 (37.5-50.1) % Plt Count 100 L (140-400) K/mcL Neutrophils # 6.0 (1.6-8.9) K/mcL BMP 01/16/17 05:53 Sodium 142 Potassium 3.3 L Chloride 97 L Carbon Dioxide 34 H BUN 30 H Creatinine 1.93 H Glucose 106 H Calcium 9.8 - ABG Interpretation ABG results: PT/INR, D-dimer PT 23.3 Seconds (9.4-12.1) H 01/16/17 05:53 - Impressions Impressions Echocardiogram 01/15/17 12:50 Impressions: LVEF 55%. Normal LV chamber size, wall thickness and function. Indeterminate diastolic function. Atypical septal motion consistent with paced rhythm. Mildly dilated right ventricle with normal function. Severely dilated left atrium. Severely dilated right atrium. Mild mitral regurgitation. Mild-moderate tricuspid regurgitation. Mild pulmonary hypertension. Estimated RVSP is 43 mmHg. A device lead was visualized in the right atrium and right ventricle. Left Ventricular Wall Motion: Rest Echo Findings All wall segments showed normal motion. Findings: Study Quality * Technically adequate exam. ECG Findings * Atrial fibrillation/Paced rhythm. Left Ventricle * LVEF 55%. * Normal LV chamber size, wall thickness and function. * Indeterminate diastolic function. * Atypical septal motion consistent with paced rhythm. Right Ventricle * Mildly dilated right ventricle with normal function. Left Atrium * Severely dilated left atrium. Right Atrium * Severely dilated right atrium. Interatrial Septum * No evidence of PFO by color Doppler. Aortic Valve * Trileaflet aortic valve. * Moderately sclerotic aortic valve leaflets. * No aortic stenosis. * Trace aortic regurgitation. Mitral Valve * Mildly thickened mitral valve leaflets. * Mild mitral regurgitation. * No mitral stenosis. Tricuspid Valve * Normal tricuspid valve structure. * Mild-moderate tricuspid regurgitation. * Mild pulmonary hypertension. * Estimated RVSP is 43 mmHg. * Estimated RA pressure is 10 mmHg. Pulmonic Valve * Normal pulmonic valve structure. * Mild pulmonic regurgitation. Aorta * Normally sized aortic root. Pericardium * The pericardium appears normal. IVC * The IVC is dilated. * > 50% respiratory change Device lead * A device lead was visualized in the right atrium and right ventricle. Pulmonary Artery * Normal visualized portions of the main pulmonary artery. Consult Discharge Plan - Plan Referrals: Aliya Barba DO [Primary Care Provider] - - Attending Attestation I examined this patient and my medical decision-making was reviewed with the Resident Physician. I agree with the documented findings, disposition and treatment plan as described except to the extent set forth below. <Marixa Molina - Last Filed: 01/16/17 17:55> Date of Encounter: 01/16/17 Time of Encounter: 13:38 - Assessment and plan (1) Acute on chronic congestive heart failure Current Visit: Yes Status: Acute Assessment and plan: Patient with increased shortness of breath, weight gain and edema. Echo from 07/2016 showed EF of 55%, indeterminate diastolic function, severely dilated atria, moderate to severe pulmonary hypertension. ECHO now LVEF 55% CXR shows small right effusion, mild bibasilar atelectasis. Continue management Qualifiers: Congestive heart failure type: diastolic Qualified Code(s): I50.33 - Acute on chronic diastolic (congestive) heart failure (2) Afib Current Visit: Yes Status: Chronic Assessment and plan: Will continue home doses of metoprolol and diltiazem. PT/INR/PTT daily and have pharmacy dose coumadin. Qualifiers: Atrial fibrillation type: chronic Qualified Code(s): I48.2 - Chronic atrial fibrillation (3) Hypertension Current Visit: No Status: Chronic Assessment and plan: BP within goal Qualifiers: Hypertension type: essential hypertension Qualified Code(s): I10 - Essential (primary) hypertension (4) Acute kidney injury superimposed on CKD Current Visit: Yes Status: Acute Assessment and plan: Will hold lisinopril, avoid nsaids and other nephrotoxins and check labs daily. (5) DVT prophylaxis Current Visit: Yes Status: Acute Assessment and plan: Coumadin, per pharmacy (6) Hypokalemia Current Visit: Yes Status: Acute Assessment and plan: Continue to monitor Replete prn. - Subjective Interval history: No acute events overnight. Pt eating comfortably when resident MD visited this morning. - Constitutional Vitals: Temp Pulse Resp BP Pulse Ox 97.9 F 84 16 119/74 93 01/16/17 10:49 01/16/17 10:49 01/16/17 10:49 01/16/17 10:49 01/16/17 10:49 General appearance: Present: A&O X 3, pleasant, no acute distress - Head Head exam: Present: atraumatic, normocephalic - Respiratory Respiratory exam: Present: decreased breath sounds. Absent: accessory muscle use, chest wall tenderness Additional comments: limited 2/2/ to debility - Cardiovascular Cardiovascular exam: Present: irregular rhythm, +S1, +S2 - GI/Abdominal GI/Abdominal exam: Present: normal bowel sounds, soft, no peritoneal signs. Absent: distended, tenderness - Expanded Lower Extremities Exam Lower Leg exam: Present: full ROM (compression stocking. Left LE: bandage underneath compression stocking). Absent: erythema (however venous stasis changes are present) Internal Medicine: Result - Labs CBC & Chem 7: 01/16/17 05:53 01/16/17 05:53 Labs: Short CBC 01/16/17 Range/Units 05:53 WBC 8.9 (4.3-11.1) K/mcL Hgb 12.6 L (12.9-16.9) g/dL Hct 38.7 (37.5-50.1) % Plt Count 100 L (140-400) K/mcL Neutrophils # 6.0 (1.6-8.9) K/mcL BMP 01/16/17 05:53 Sodium 142 Potassium 3.3 L Chloride 97 L Carbon Dioxide 34 H BUN 30 H Creatinine 1.93 H Glucose 106 H Calcium 9.8 - ABG Interpretation ABG results: PT/INR, D-dimer PT 23.3 Seconds (9.4-12.1) H 01/16/17 05:53 - Impressions Impressions Echocardiogram 01/15/17 12:50 Impressions: LVEF 55%. Normal LV chamber size, wall thickness and function. Indeterminate diastolic function. Atypical septal motion consistent with paced rhythm. Mildly dilated right ventricle with normal function. Severely dilated left atrium. Severely dilated right atrium. Mild mitral regurgitation. Mild-moderate tricuspid regurgitation. Mild pulmonary hypertension. Estimated RVSP is 43 mmHg. A device lead was visualized in the right atrium and right ventricle. Left Ventricular Wall Motion: Rest Echo Findings All wall segments showed normal motion. Findings: Study Quality * Technically adequate exam. ECG Findings * Atrial fibrillation/Paced rhythm. Left Ventricle * LVEF 55%. * Normal LV chamber size, wall thickness and function. * Indeterminate diastolic function. * Atypical septal motion consistent with paced rhythm. Right Ventricle * Mildly dilated right ventricle with normal function. Left Atrium * Severely dilated left atrium. Right Atrium * Severely dilated right atrium. Interatrial Septum * No evidence of PFO by color Doppler. Aortic Valve * Trileaflet aortic valve. * Moderately sclerotic aortic valve leaflets. * No aortic stenosis. * Trace aortic regurgitation. Mitral Valve * Mildly thickened mitral valve leaflets. * Mild mitral regurgitation. * No mitral stenosis. Tricuspid Valve * Normal tricuspid valve structure. * Mild-moderate tricuspid regurgitation. * Mild pulmonary hypertension. * Estimated RVSP is 43 mmHg. * Estimated RA pressure is 10 mmHg. Pulmonic Valve * Normal pulmonic valve structure. * Mild pulmonic regurgitation. Aorta * Normally sized aortic root. Pericardium * The pericardium appears normal. IVC * The IVC is dilated. * > 50% respiratory change Device lead * A device lead was visualized in the right atrium and right ventricle. Pulmonary Artery * Normal visualized portions of the main pulmonary artery. - VTE Documentation of Mechanical Device: Graduated compression elastic hosiery
[2017-01-16] MEDS: *HR* Warfarin 3 MG TABLET PO SCH (17:05)
[2017-01-17 03:27] LABS: Basophils % 0.4 %; Eosinophils # 0.4 K/mcL (0.0-0.6); Eosinophils % 3.8 %; Hematocrit 41.1 % (37.5-50.1); Hemoglobin 13.2 g/dL (12.9-16.9); Immature Granulocytes % 0.3 % (0-4); Lymphocytes # 1.9 K/mcL (0.6-4.6); Lymphocytes % 19.1 %; Mean Corpuscular HGB Conc 32.1 g/dL (31.6-35.5); Mean Corpuscular Hemoglobin 29.1 pg (28.0-33.3); Mean Corpuscular Volume 90.5 fL (83.0-100.0); Mean Platelet Volume 12.6 fL (9.4-12.4); Monocytes # 0.9 K/mcL (0.0-1.3); Monocytes % 8.8 %; Neutrophils # 6.6 K/mcL (1.6-8.9); Platelet Count 110 K/mcL (140-400); Red Blood Count 4.54 M/mcL (4.19-5.50); Red Cell Distribution Width 18.5 % (11.5-14.5); Segmented Neutrophils % 67.6 %
[2017-01-17 03:31] LABS: INR 2.1; Prothrombin Time 22.8 Seconds (9.4-12.1)
[2017-01-17 03:38] LABS: Potassium 2.9 mEq/L (3.5-4.5)
[2017-01-17 07:26] VITALS: BP 127/79
--- NOTE | 2017-01-17 07:52 | Internal Med Progress Note ---
Date of Encounter: 01/17/17 Time of Encounter: 07:52 - Assessment and plan (1) Acute on chronic congestive heart failure Current Visit: Yes Status: Acute Qualifiers: Congestive heart failure type: diastolic Qualified Code(s): I50.33 - Acute on chronic diastolic (congestive) heart failure (2) Afib Current Visit: Yes Status: Chronic Qualifiers: Atrial fibrillation type: chronic Qualified Code(s): I48.2 - Chronic atrial fibrillation (3) Hypertension Current Visit: No Status: Chronic Qualifiers: Hypertension type: essential hypertension Qualified Code(s): I10 - Essential (primary) hypertension (4) Acute kidney injury superimposed on CKD Current Visit: Yes Status: Acute (5) DVT prophylaxis Current Visit: Yes Status: Acute (6) Hypokalemia Current Visit: Yes Status: Acute - Subjective Interval history: No acute events overnight. Pt eating comfortably when resident MD visited this morning. - Constitutional Vitals: Temp Pulse Resp BP Pulse Ox 97.8 F 67 14 127/79 96 01/17/17 07:25 01/17/17 07:25 01/17/17 07:25 01/17/17 07:25 01/17/17 07:25 General appearance: Present: A&O X 3, pleasant, no acute distress Internal Medicine: Result - Labs CBC & Chem 7: 01/17/17 03:09 01/17/17 03:09 Labs: Short CBC 01/17/17 Range/Units 03:09 WBC 9.8 (4.3-11.1) K/mcL Hgb 13.2 (12.9-16.9) g/dL Hct 41.1 (37.5-50.1) % Plt Count 110 L (140-400) K/mcL Neutrophils # 6.6 (1.6-8.9) K/mcL BMP 01/17/17 03:09 Sodium 145 Potassium 2.9 L Chloride 97 L Carbon Dioxide 35 H BUN 39 H Creatinine 2.13 H Glucose 120 H Calcium 10.0 - ABG Interpretation ABG results: PT/INR, D-dimer PT 22.8 Seconds (9.4-12.1) H 01/17/17 03:09 - Impressions Impressions Echocardiogram 01/15/17 12:50 Impressions: LVEF 55%. Normal LV chamber size, wall thickness and function. Indeterminate diastolic function. Atypical septal motion consistent with paced rhythm. Mildly dilated right ventricle with normal function. Severely dilated left atrium. Severely dilated right atrium. Mild mitral regurgitation. Mild-moderate tricuspid regurgitation. Mild pulmonary hypertension. Estimated RVSP is 43 mmHg. A device lead was visualized in the right atrium and right ventricle. Left Ventricular Wall Motion: Rest Echo Findings All wall segments showed normal motion. Findings: Study Quality * Technically adequate exam. ECG Findings * Atrial fibrillation/Paced rhythm. Left Ventricle * LVEF 55%. * Normal LV chamber size, wall thickness and function. * Indeterminate diastolic function. * Atypical septal motion consistent with paced rhythm. Right Ventricle * Mildly dilated right ventricle with normal function. Left Atrium * Severely dilated left atrium. Right Atrium * Severely dilated right atrium. Interatrial Septum * No evidence of PFO by color Doppler. Aortic Valve * Trileaflet aortic valve. * Moderately sclerotic aortic valve leaflets. * No aortic stenosis. * Trace aortic regurgitation. Mitral Valve * Mildly thickened mitral valve leaflets. * Mild mitral regurgitation. * No mitral stenosis. Tricuspid Valve * Normal tricuspid valve structure. * Mild-moderate tricuspid regurgitation. * Mild pulmonary hypertension. * Estimated RVSP is 43 mmHg. * Estimated RA pressure is 10 mmHg. Pulmonic Valve * Normal pulmonic valve structure. * Mild pulmonic regurgitation. Aorta * Normally sized aortic root. Pericardium * The pericardium appears normal. IVC * The IVC is dilated. * > 50% respiratory change Device lead * A device lead was visualized in the right atrium and right ventricle. Pulmonary Artery * Normal visualized portions of the main pulmonary artery. - VTE Documentation of Mechanical Device: Graduated compression elastic hosiery Consult Discharge Plan - Plan Referrals: Aliya Barba DO [Primary Care Provider] -
[2017-01-17] MEDS: Beclomethasone 80mcg MDI IH SCH (07:55)
[2017-01-17] MEDS: Gabapentin 300 MG CAPSULE PO SCH (08:04)
[2017-01-17] MEDS: Metoprolol XL (24 HR) Succ 50 MG TAB.ER.24H PO SCH (08:04)
[2017-01-17] MEDS: Diltiazem CD (24hr) 120 MG CAPSULE PO SCH (08:04)
[2017-01-17] MEDS: Aspirin Enteric Coated 81 MG Tablet PO SCH (08:04)
[2017-01-17] MEDS: metOLazone 2.5 MG TABLET PO SCH (08:04)
[2017-01-17] MEDS: *HR* Digoxin 0.125 MG TABLET PO SCH (08:05)
[2017-01-17] MEDS: Furosemide 40 MG/4 ML VIAL IVP SCH (08:05)
--- NOTE | 2017-01-17 10:02 | Discharge Summary ---
<Marixa Molina - Last Filed: 01/17/17 15:41> Date of Encounter: 01/17/17 Time of Encounter: 09:59 - Discharge Diagnosis (1) Acute on chronic congestive heart failure Priority: Primary Status: Resolved Qualifiers: Congestive heart failure type: diastolic Qualified Code(s): I50.33 - Acute on chronic diastolic (congestive) heart failure (2) Afib Priority: Primary Status: Chronic Qualifiers: Atrial fibrillation type: chronic Qualified Code(s): I48.2 - Chronic atrial fibrillation (3) Hypertension Priority: Primary Status: Chronic Qualifiers: Hypertension type: essential hypertension Qualified Code(s): I10 - Essential (primary) hypertension (4) Acute kidney injury superimposed on CKD Priority: Secondary Status: Acute (5) DVT prophylaxis Priority: Secondary Status: Acute (6) Hypokalemia Priority: Secondary Status: Chronic - Discharge Medications Home Medications: Allopurinol [Zyloprim] 100 mg PO QAM 03/29/15 [History] Gabapentin [Neurontin] 300 mg PO TID 03/29/15 [History] Gluc/Heladio-MSM#1/C/Hans/Leonidas/Bor [Osteo Bi-Flex Caplet] 1 tab PO BID 03/29/15 [ History] Pravastatin Sodium [Pravachol] 20 mg PO HS 03/29/15 [History] Melatonin/Pyridoxine HCl (B6) [Melatonin 3 mg Tablet] 3 mg PO HS 08/15/16 [ History] Pantoprazole Sodium [Protonix] 40 mg PO DAILY 08/15/16 [History] hydrOXYzine HCl [Hydroxyzine HCl] 25 mg PO TID 08/15/16 [History] Aspirin Enteric Coated [Aspirin EC] 81 mg PO DAILY 09/04/16 [History] Metoprolol XL (24 HR) Succ [Toprol Xl] 150 mg PO BID 09/04/16 [History] Docusate [Colace] 100 mg PO DAILY PRN #30 capsule 09/06/16 [Rx] Ferrous Sulfate 325 mg PO BIDWM #60 tablet 09/06/16 [Rx] Furosemide [Lasix] 40 mg PO DAILY #60 tab 09/06/16 [Rx] Albuterol Neb [Proventil Neb] 2.5 mg IH QID PRN 10/08/16 [History] Mometasone Furoate [Asmanex] 220 mcg IH BID 10/08/16 [History] Saw [place] Xtr/Zinc Picolin [Saw [place] Capsule] 1 each PO DAILY 10/08/16 [ History] Diltiazem CD (24hr) [Cardizem CD] 120 mg PO DAILY #30 cap.er.24h 10/12/16 [Rx] Digoxin [Lanoxin] 0.125 mg PO DAILY 01/15/17 [History] Lisinopril [Zestril] 10 mg PO BID 01/15/17 [History] Potassium Chloride [K-Tab ER] 20 meq PO DAILY 01/15/17 [History] Spironolactone [Aldactone] 25 mg PO DAILY 01/15/17 [History] Warfarin [Coumadin] 3 mg PO QAM 01/15/17 [History] Allergies/Adverse Reactions: 3 Allergy/AdvReac Type Severity Reaction Status Date / Time No Known Allergies Allergy Verified 09/04/16 13:47 Procedures/tests Complete & Pending: Procedures Performed prior 72 hours Category Date Time Status EV echocardiogram Routine Y 01/15/17 12:50 Completed Date of admission: 01/15/17 12:46 Primary care physician: Henok Pathak Discharging clinician: Marixa Molina Anticipated date of discharge: 01/17/17 - Patient Status Disposition: Home, Self-Care Condition: Fair Overall status at discharge: patient is back to baseline - Discharge Instructions Instructions: Heart Failure (DC), Acute Kidney Injury (DC) Follow Up With: Aliya Barba DO [Primary Care Provider] - 01/23/17 9:30 am () Additional Instructions: Please follow up with your primary care provider within 1 week Please continue to take your medications Please return to the emergency room in case of acute shortness of breath, fever , or any new onset of symptoms. Prevention Medicine: Patients with fair complexion and aged >65 constitute known groups at substantially increased risk for melanoma. You stated you have an appointment with the acid tester tomorrow for continued monitoring of your moles. Continue your follow up with your PCP, acid tester and affiliate doctors as needed. We thank you for choosing [facility] and we are honored to care for you Mr. Castanon! - Diet and Activity Activity: increase activity as tolerated Interval History: No acute events overnight. No chest pain. No N/V. No abdominal pain. Would like to go home this morning, as he feels better. Hospital course: Mr. Castanon is a 86 year old male with hypertension, hyperlipidemia, CHF, atrial fibrillation on Coumadin, COPD, history of GI bleed, CAD who presented to emergency room with increased shortness of breath, weight gain and edema. Echo from 07/2016 showed EF of 55%, indeterminate diastolic function, severely dilated atria, moderate to severe pulmonary hypertension. He was admitted for acute on chronic CHF. Echo re-demonstrated LVEF 55% with no evidence of PFO by color doppler. BNP was elevated at 510. CXR demonstrated a small right effusion, mild bibasilar atelectasis. Patient was placed on Lasix 40mg IVP BID, Metolazone 2.5mg PO daily. Creatinine and timed BMPs were monitored for noted rise in Cr from baseline. Recording of weights and strict I/Os were initiated. He remained on a cardiac diet with 1.5L fluid restriction.Pt was medically managed with metoprolol and diltiazem for rhythm and rate control and maintained on coumadin for anticoagulation, with daily PT/INR/PTT daily (INR - 1.9 -2.1). Over hospitalization, BMP was with K of 3.2 and 3.3 and finally 2.9 with Mg levels at 1.9. Patient received potassium repletion over course of hospitalization and prior to discharge. - Time Spent with Patient Total time spent providing and/or coordinating discharge services: - Constitutional Vitals: Temp Pulse Resp BP Pulse Ox 97.8 F 67 18 127/79 96 01/17/17 07:25 01/17/17 07:25 01/17/17 07:55 01/17/17 07:25 01/17/17 07:55 General appearance: Present: A&O X 3, pleasant, no acute distress - Head Head exam: Present: atraumatic, normocephalic - Respiratory Respiratory exam: Present: CTAB. Absent: accessory muscle use, rales, rhonchi, wheezes - Cardiovascular Cardiovascular exam: Present: RRR, +S1, +S2. Absent: gallop, rubs, tachycardia - GI/Abdominal GI/Abdominal exam: Present: normal bowel sounds, soft, no peritoneal signs. 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 Castanon is a 86 year old male - Time Spent with Patient Total time spent providing and/or coordinating discharge services: - Constitutional Vitals: Temp Pulse Resp BP Pulse Ox 97.8 F 67 18 127/79 96 01/17/17 07:25 01/17/17 07:25 01/17/17 07:55 01/17/17 07:25 01/17/17 07:55 - Attending Attestation I examined this patient and my medical decision-making was reviewed with the Resident Physician. I agree with the documented findings, disposition and treatment plan as described except to the extent set forth below. Delayed entry. Due to technical difficulty this note was not signed.
[2017-01-17 10:14] LABS: Magnesium 1.9 mg/dL (1.6-2.6)
--- NOTE | 2017-01-17 17:58 | Event Note ---
Date of Encounter: 01/17/17 Time of Encounter: 17:57 I examined this patient and my medical decision-making was reviewed with the Resident Physician. I agree with the documented findings, disposition and treatment plan as described except to the extent set forth below. I have reviewed discharge summary and I completely agree with the resident's findings. Due to the updating progress I was not able to sign this discharge summary. Please treat this event note as a cosigned for the discharge summary.
== END 2017-01-17 11:25 | disposition home or self-care (01) | DRG 291 ==
LOC: 2ANU 09:06 → EMEROO 09:06 → 2ANU 12:33
PROVIDERS: ADMIT Family Medicine; ATTEND Internal Medicine

== ENCOUNTER 2017-04-27 16:49 | Inpatient (IN) ==
--- NOTE | 2017-04-27 18:42 | Emergency Department Note ---
START Narrative - START START: I examined this patient and my medical decision-making was reviewed with the Resident Physician. I agree with the documented findings, disposition and treatment plan as described except to the extent set forth below. Patient in the ED with a chief complaint of right knee pain. Onset this morning. Patient presented to the [place] urgent care and was sent to rule out a DVT. He denies injury. He states it felt like he pulled a hamstring. On examination he has swelling of the knee and calf. Extreme pain with flexion of the knee. There is no erythema. There is no warmth. Plan. The patient has an x-ray that shows a possible fracture. Ultrasound was negative for DVT. He has a CT scan pending.
--- NOTE | 2017-04-27 18:53 | Emergency Department Note ---
Disposition Clinical Impression: Unable to ambulate Femur fracture, right Qualifiers: Encounter type: initial encounter Femur location: unspecified portion of femur Fracture type: closed Fracture morphology: unspecified fracture morphology Qualified Code(s): S72.91XA - Unspecified fracture of right femur, initial encounter for closed fracture Disposition: Still a Patient Condition: Fair Extremity Problem HPI - General Chief complaint: ED Extremity Problem,Nontraumatic Stated complaint: Poss. DVT Time Seen by Provider: 04/27/17 16:56 Source: patient, EMS Limitations: no limitations Nursing Notes Reviewed: Yes Vital Signs Reviewed: Yes - History of Present Illness HPI Narrative: Patient transferred from the [place] for evaluation of DVT. Patient has had pain behind his knee for approximately 2 days. States that it got significantly worse today. Patient reports swelling and inability to bend and put weight on it. He states that he had fallen about 3 weeks ago. Was evaluated at the [facility] with head and neck CT which were negative. He is on anticoagulation with a INR of 2.8 today. His other blood work is unremarkable which was sent from the [place]. Patient will receive a CT as well as a Doppler study of his leg. Pain Scale: 0 - Related Data Home Medications Medication Instructions Recorded Confirmed Allopurinol [Zyloprim] 200 mg PO QAM 03/29/15 04/28/17 Gabapentin [Neurontin] 300 mg PO TID 03/29/15 04/28/17 Gluc/[place]-MSM#1/C/Hans/Leonidas/Bor 1 tab PO BID 03/29/15 04/28/17 [Osteo Bi-Flex Caplet] Pravastatin Sodium [Pravachol] 20 mg PO HS 03/29/15 04/28/17 Melatonin/Pyridoxine HCl (B6) 3 mg PO HS 08/15/16 04/28/17 [Melatonin 3 mg Tablet] hydrOXYzine HCl [Hydroxyzine HCl] 25 mg PO TID 08/15/16 04/28/17 Aspirin Enteric Coated [Aspirin EC] 81 mg PO DAILY 09/04/16 04/28/17 Metoprolol XL (24 HR) Succ [Toprol 150 mg PO BID 09/04/16 04/28/17 Xl] Mometasone Furoate [Asmanex] 220 mcg IH BID 10/08/16 04/28/17 Saw [place] Xtr/Zinc Picolin [Saw 1 cap PO DAILY 10/08/16 04/28/17 [place] Capsule] Digoxin [Lanoxin] 0.125 mg PO DAILY 01/15/17 04/28/17 Lisinopril [Zestril] 10 mg PO BID 01/15/17 04/28/17 Potassium Chloride [K-Tab ER] 20 meq PO BID 01/15/17 04/28/17 Albuterol Sulfate [Proair Hfa] 1 puff IH TID PRN 04/27/17 04/28/17 Tolterodine LA (24 HR) [Detrol LA] 4 mg PO QPM 04/27/17 04/28/17 Furosemide [Lasix] 40 - 80 mg PO DAILY PRN 04/28/17 04/28/17 Methylphenidate HCl [Concerta] 18 mg PO TID 04/28/17 04/28/17 Tamsulosin HCl [Flomax] 0.4 mg PO DAILY 04/28/17 04/28/17 Previous Rx's Medication Instructions Recorded Docusate [Colace] 100 mg PO DAILY PRN #30 capsule 09/06/16 Ferrous Sulfate 325 mg PO BIDWM #60 tablet 09/06/16 Diltiazem CD (24hr) [Cardizem CD] 120 mg PO DAILY #30 cap.er.24h 10/12/16 Acetaminophen [Tylenol] 650 mg PO Q8H PRN tablet 04/28/17 Allergies Allergy/AdvReac Type Severity Reaction Status Date / Time No Known Allergies Allergy Verified 09/04/16 13:47 All systems ED: reviewed and negative except as stated. Constitutional: Denies: fever, chills Cardiovascular: Denies: chest pain, palpitations Respiratory: Denies: cough, dyspnea Gastrointestinal: Denies: abdominal pain, nausea Musculoskeletal: Reports: joint swelling, arthralgia. Denies: back pain, neck pain Integumentary: Denies: rash Neurological: Denies: headache Endocrine: Denies: fatigue Past Medical History - Past Medical History Medical history: Reports: atrial fibrillation, CHF, COPD, GI bleed, hyperlipidemia, hypertension, renal disease Surgical history: Reports: knee replacement, pacemaker/AICD, vascular surgery Psychiatric history: Reports: no psych history - Social History Smoking Status: Former smoker Smokeless Tobacco Status: No Alcohol use: Reports: none Drug use: Reports: none Physical Exam General appearance: NAD, conversant Eyes: anicteric sclerae, moist conjunctivae; no lid-lag; PERRL HENT: Atraumatic; oropharynx clear with moist mucous membranes Neck: Normal appearance; Trachea midline Chest: Symmetrical chest rise; No respiratory distress Extremities: Patient has swelling of the right leg that is 2 cm difference in diameter than the left. Patient has inability to bend the knee secondary to pain. Patient has no pain in the hip or the ankle. Patient has no ecchymosis or erythema. Distal pulses symmetric. Neurovascularly intact. Patient has mild edema on the right compared to the left. Skin: Normal temperature, turgor and texture; no rash, ulcers or subcutaneous nodules Psych: Appropriate mood and affect Neuro: Awake and alert - General Limitations: no limitations General appearance: alert, in no apparent distress Course - Reevaluation(s) Reevaluation #1: Patient unable to adequately ambulate. Patient has had recent falls. Patient unable to go home at this time. We will discuss with hospitalist. Reevaluation #2: The patient is then placed to the hospitalist however due to Time constraints this [facility] Thompson - Consultations Consultation #1: Discussed with Dr. Hassan. Patient does not need emergent intervention. Can follow as an outpatient if ambulatory. Can follow-up on Saturday at 10 AM. However if he is unable to ambulate he will be happy to see him in the hospital as a consult. Vital Signs Temperature 97.7 F 04/27/17 16:51 Pulse Rate 78 04/27/17 16:51 Respiratory Rate 18 04/27/17 16:51 Blood Pressure 136/79 04/27/17 16:51 O2 Sat by Pulse Oximetry 98 04/27/17 16:51 Temperature 97.9 F 04/28/17 15:29 Pulse Rate 66 04/28/17 15:29 Respiratory Rate 18 04/28/17 15:29 Blood Pressure 114/65 04/28/17 15:29 O2 Sat by Pulse Oximetry 95 04/28/17 15:29 Oxygen Delivery Oxygen Delivery Room Air Extremity Problem, Nontraumati - Lab Data Result diagrams: 04/28/17 05:05 04/28/17 05:05
[2017-04-27] MEDS ORDERED: Ondansetron 4 MG/2 ML VIAL IVP PRN (20:23)
[2017-04-27] MEDS ORDERED: MOM Conc 10 ML UD.LIQ PO PRN (20:23)
[2017-04-27] MEDS ORDERED: *HR* Morphine 2 MG/ML SYRINGE IVP PRN (20:23)
[2017-04-27] MEDS ORDERED: Naloxone 0.4 MG/ML INJ IVP PRN ×2 (20:23→20:46)
[2017-04-27] MEDS ORDERED: Acetaminophen 325 MG TABLET PO PRN (20:23)
[2017-04-27] MEDS ORDERED: Mag Hydrox/Al Hydrox/Simeth 30 ML UDC PO PRN (20:23)
--- NOTE | 2017-04-27 20:33 | Internal Med History&Physical ---
<Kierra Conway - Last Filed: 04/27/17 20:57> Date of Encounter: 04/27/17 Time of Encounter: 20:27 Assessment and Plan (1) Femur fracture, right Current visit: Yes Status: Acute - right knee small fracture, orthopedics consulted and no surgical indication. - Knee immobilizer applied. - pain control and supportive care. - ortho following. Qualifiers: Encounter type: initial encounter Femur location: unspecified portion of femur Fracture type: closed Fracture morphology: unspecified fracture morphology Qualified Code(s): S72.91XA - Unspecified fracture of right femur, initial encounter for closed fracture (2) AICD discharge Current visit: No Status: Acute (3) Afib Current visit: No Status: Chronic - rate controlled, INR 2.8 today. - continue coumadin. Qualifiers: Atrial fibrillation type: chronic Qualified Code(s): I48.2 - Chronic atrial fibrillation (4) Hypertension Current visit: No Status: Chronic Qualifiers: Hypertension type: essential hypertension Qualified Code(s): I10 - Essential (primary) hypertension (5) Anemia Current visit: No Status: Chronic Qualifiers: Anemia type: iron deficiency Qualified Code(s): D50.9 - Iron deficiency anemia, unspecified (6) CAD (coronary artery disease) Current visit: No Status: Chronic Qualifiers: Coronary Disease-Associated Artery/Lesion type: unspecified vessel or lesion type [place] vs. transplanted heart: [place] heart Associated angina: without angina Qualified Code(s): I25.10 - Atherosclerotic heart disease of [place] coronary artery without angina pectoris (7) CHF (congestive heart failure) Current visit: No Status: Chronic Qualifiers: Congestive heart failure type: unspecified congestive heart failure type Congestive heart failure chronicity: acute Qualified Code(s): I50.9 - Heart failure, unspecified (8) GERD (gastroesophageal reflux disease) Current visit: No Status: Chronic Qualifiers: Esophagitis presence: without esophagitis Qualified Code(s): K21.9 - Gastro -esophageal reflux disease without esophagitis Internal Medicine - H&P: HPI Admitted From: Emergency Dept Plans for Post Hospital Care: Home History of present illness: Mr. Castanon is a 87 year old male with past medical history of CAD, atrial fibrillation, CK D, CHF, COPD or present to the ED with swelling right leg. Family noticed that the patient right leg becomes swelling since this morning. They concern that the patient might have a blood clot, so they sent the patient to the [facility]. Patient transferred from the [facility] for evaluation of DVT. Patient has had pain behind his knee for approximately 2 days. States that it got significantly worse today. Patient reports swelling and inability to bend and put weight on it. He states that he had fallen about 3 weeks ago. Was evaluated at the [facility] with head and neck CT which were negative. He is on anticoagulation with a INR of 2.8 today. His other blood work is unremarkable which was sent from the [facility]. Patient will receive a CT as well as a Doppler study of his leg. At the ED, his vital signs were stable. Right knee CT revealed small fracture which orthopedics think surgery is not indicated at this time. Due to his mobility issues, he will be admitted to the hospital for further management. Past Med Surg Social Fam HX - Past Medical History Medical history: atrial fibrillation, CHF, COPD, GI bleed, hyperlipidemia, hypertension, renal disease Psychiatric history: no psych history - Past Surgical History Surgical History: knee replacement, pacemaker/AICD, vascular surgery - Social History Smoking Status: Former smoker Smokeless Tobacco Status: No Alcohol use: none Drug use: none - Family History Mother Living Status: Hx Family Cardiac Disorders: Yes Father Living Status: Hx Family Cardiac Disorders: Yes ([place]) Hx Family Respiratory Disorders: No Hx Family Cancer: No Hx Family GI Disorders: No Hx Family Endocrine Disorder: No Hx Family Neuromuscular Disorders: No Hx Family Neurologic Disorders: No Hx Family HEENT Disorders: No Hx Family Autoimmune Disorders: No Internal Medicine - H&P: Meds Allopurinol [Zyloprim] 200 mg PO QAM 03/29/15 [History] Gabapentin [Neurontin] 300 mg PO TID 03/29/15 [History] Gluc/Heladio-MSM#1/C/Hans/Leonidas/Bor [Osteo Bi-Flex Caplet] 1 tab PO BID 03/29/15 [ History] Pravastatin Sodium [Pravachol] 20 mg PO HS 03/29/15 [History] Melatonin/Pyridoxine HCl (B6) [Melatonin 3 mg Tablet] 3 mg PO HS 08/15/16 [ History] Pantoprazole Sodium [Protonix] 40 mg PO DAILY 08/15/16 [History] hydrOXYzine HCl [Hydroxyzine HCl] 25 mg PO QPM 08/15/16 [History] Aspirin Enteric Coated [Aspirin EC] 81 mg PO DAILY 09/04/16 [History] Metoprolol XL (24 HR) Succ [Toprol Xl] 125 mg PO BID 09/04/16 [History] Docusate [Colace] 100 mg PO DAILY PRN #30 capsule 09/06/16 [Rx] Ferrous Sulfate 325 mg PO BIDWM #60 tablet 09/06/16 [Rx] Furosemide [Lasix] 40 mg PO DAILY #60 tab 09/06/16 [Rx] Albuterol Neb [Proventil Neb] 2.5 mg IH QID PRN 10/08/16 [History] Mometasone Furoate [Asmanex] 220 mcg IH BID 10/08/16 [History] Saw [place] Xtr/Zinc Picolin [Saw [place] Capsule] 1 each PO DAILY 10/08/16 [ History] Diltiazem CD (24hr) [Cardizem CD] 120 mg PO DAILY #30 cap.er.24h 10/12/16 [Rx] Digoxin [Lanoxin] 0.125 mg PO DAILY 01/15/17 [History] Lisinopril [Zestril] 10 mg PO BID 01/15/17 [History] Potassium Chloride [K-Tab ER] 10 meq PO BID 01/15/17 [History] Spironolactone [Aldactone] 25 mg PO DAILY 01/15/17 [History] Warfarin [Coumadin] 3 mg PO QAM 01/15/17 [History] Albuterol Sulfate [Proair Hfa] 1 puff IH TID PRN 04/27/17 [History] Bumetanide 2 mg PO BID 04/27/17 [History] Tolterodine LA (24 HR) [Detrol LA] 4 mg PO QPM 04/27/17 [History] acetaZOLAMIDE [Diamox] 125 mg PO QAM 04/27/17 [History] 3 Allergy/AdvReac Type Severity Reaction Status Date / Time No Known Allergies Allergy Verified 09/04/16 13:47 All Systems PM: A 10-system review of systems was performed and is negative for pertinent findings except as documented above in the HPI. Review of systems: REVIEW OF SYSTEMS: CONSTITUTIONAL: No weight loss, fever, chills, weakness or fatigue. HEENT: Eyes: No visual loss, blurred vision, double vision or yellow sclerae. Ears, Nose, Throat: No hearing loss, sneezing, congestion, runny nose or sore throat. SKIN: No rash or itching. CARDIOVASCULAR: No chest pain, chest pressure or chest discomfort. No palpitations or edema. RESPIRATORY: No shortness of breath, cough or sputum. GASTROINTESTINAL: No anorexia, nausea, vomiting or diarrhea. No abdominal pain or blood. GENITOURINARY: No dysuria, urgency, or frequency. NEUROLOGICAL: No headache, dizziness, syncope, paralysis, ataxia, numbness or tingling in the extremities. No change in bowel or bladder control. MUSCULOSKELETAL: see HPI. HEMATOLOGIC: No anemia, bleeding or bruising. LYMPHATICS: No enlarged nodes. No history of splenectomy. PSYCHIATRIC: No history of depression or anxiety. ENDOCRINOLOGIC: No reports of sweating, cold or heat intolerance. No polyuria or polydipsia. - Constitutional Vitals: Temp Pulse Resp BP Pulse Ox 97.7 F 72 18 135/83 96 04/27/17 16:51 04/27/17 19:33 04/27/17 19:33 04/27/17 19:33 04/27/17 19:33 Exam: PHYSICAL EXAMINATION: GENERAL APPEARANCE: The patient is alert, oriented and in no acute distress. HEENT: Head is normocephalic. The sinuses are nontender. Pupils are equal and reactive. The nares are patent. Oropharynx clear without lesions. NECK: Supple without lymphadenopathy. HEART: Regular rate and rhythm. LUNGS: No crackles or wheezes are heard. ABDOMEN: Soft, nontender, nondistended with good bowel sounds heard. Inguinal area is normal. EXTREMITIES: right knee moderately swelling, a knee immobilizer was applied. NEUROLOGICAL: Gross nonfocal. SKIN: Warm and dry without any rash. Internal Med - H&P Results - Diagnostic Studies Other Images Additional comments: CT/CT knee RT wo con IMPRESSION: 1. Age-indeterminate subchondral fracture of the medial femoral condyle. If clinically indicated further evaluation could be obtained with MRI. 2. Mild tricompartmental degenerative changes and moderate suprapatellar effusion. Small popliteal cyst. 3. Diffuse subcutaneous edema. D/ / Aung Fabian MD / Aung Fabian MD Interpreting Provider: Aung Fabian MD <Sina Houser - Last Filed: 04/27/17 21:39> Date of Encounter: 04/27/17 Time of Encounter: 21:20 Internal Medicine - H&P: HPI History of present illness: Mr. Castanon is a 87 year old male All Systems PM: A 10-system review of systems was performed and is negative for pertinent findings except as documented above in the HPI. - Constitutional Vitals: Temp Pulse Resp BP Pulse Ox 97.7 F 72 18 135/83 96 04/27/17 16:51 04/27/17 19:33 04/27/17 19:33 04/27/17 19:33 04/27/17 19:33 - Attending Attestation I examined this patient and my medical decision-making was reviewed with the Nurse Practitioner, Jayro Conway. I agree with the documented findings, disposition and treatment plan as described except to the extent set forth below. 87-year-old male patient with history of coronary artery disease, atrial fibrillation on anticoagulation, CHF and COPD presented with right sided leg pain. Had a fall 3 days back. Was unable to bend his knee and this morning. On examination, right knee stabilized in immobilizer. Mildly tender to palpation. Blood work shows INR of 2.8. CT of the right knee shows moderate joint effusion and age-indeterminate subchondral fracture of the medial femoral condyle. Fracture of the medial femoral condyle: Conservative management. Consult orthopedic surgery for recommendations. Pain control. Physical therapy. Immobilize knee joint. Follow orthopedic recommendations. Moderate risk for complications. Atrial fibrillation: Rate controlled. Continue anticoagulation. Continue Coumadin per pharmacy dosing. Continue rate controlling medications. AICD in situ. Patient did not have AICD discharge. Chronic Diastolic Congestive heart failure: Chronic. Not in acute exacerbation. Continue Bumex. Coronary artery disease: Continue statin, metoprolol.
[2017-04-27] MEDS ORDERED: Albuterol 2.5 MG/3 ML NEBULIZER IH PRN (20:40)
[2017-04-28 05:17] LABS: Hemoglobin 13.7 g/dL (12.9-16.9); Mean Corpuscular HGB Conc 33.4 g/dL (31.6-35.5); Mean Corpuscular Hemoglobin 30.2 pg (28.0-33.3); Mean Corpuscular Volume 90.5 fL (83.0-100.0); Mean Platelet Volume 12.4 fL (9.4-12.4); Platelet Count 124 K/mcL (140-400); Red Blood Count 4.53 M/mcL (4.19-5.50)
[2017-04-28 05:24] LABS: INR 3.3; Prothrombin Time 36.2 Seconds (9.4-12.1)
[2017-04-28 05:26] LABS: Activated Partial Thrombo Time 51.1 Seconds (26.0-36.0)
[2017-04-28 05:33] LABS: Albumin 3.4 g/dL (3.5-5.7); Albumin/Globulin Ratio 1.1 (1.1-2.2); Calcium 9.2 mg/dL (8.6-10.3); Globulin 3.1 g/dL (2.4-3.5); Potassium 3.4 mEq/L (3.5-5.1); Total Protein 6.5 g/dL (6.4-8.9)
--- NOTE | 2017-04-28 07:31 | Orthopedic Consult Note ---
Date of Encounter: 04/28/17 Time of Encounter: 07:30 History of Present Illness HPI: Mr. Castanon is a 87 year old male Seen this morning for right knee pain. Patient admitted with concern of fracture. Patient denies any recent trauma. I reviewed his x-ray and a CT patient does not have an actual fracture has still chondral defect consistent with arthritis. On exam patient has some swelling in the leg neurovascularly intact. Recommend discontinue knee immobilizer and weightbearing as tolerated Orthopedic stable for discharge Past Med Surg Social Fam HX - Past Medical History Medical history: atrial fibrillation, CHF, COPD, GI bleed, hyperlipidemia, hypertension, renal disease Psychiatric history: no psych history - Past Surgical History Surgical History: knee replacement, pacemaker/AICD, vascular surgery - Social History Smoking Status: Former smoker Smokeless Tobacco Status: No Alcohol use: none Drug use: none - Family History Mother Living Status: Hx Family Cardiac Disorders: Yes Father Living Status: Hx Family Cardiac Disorders: Yes ([place]) Hx Family Respiratory Disorders: No Hx Family Cancer: No Hx Family GI Disorders: No Hx Family Endocrine Disorder: No Hx Family Neuromuscular Disorders: No Hx Family Neurologic Disorders: No Hx Family HEENT Disorders: No Hx Family Autoimmune Disorders: No Medications and Allergies Allopurinol [Zyloprim] 200 mg PO QAM 03/29/15 [History] Gabapentin [Neurontin] 300 mg PO TID 03/29/15 [History] Gluc/Heladio-MSM#1/C/Hans/Leonidas/Bor [Osteo Bi-Flex Caplet] 1 tab PO BID 03/29/15 [ History] Pravastatin Sodium [Pravachol] 20 mg PO HS 03/29/15 [History] Melatonin/Pyridoxine HCl (B6) [Melatonin 3 mg Tablet] 3 mg PO HS 08/15/16 [ History] Pantoprazole Sodium [Protonix] 40 mg PO DAILY 08/15/16 [History] hydrOXYzine HCl [Hydroxyzine HCl] 25 mg PO QPM 08/15/16 [History] Aspirin Enteric Coated [Aspirin EC] 81 mg PO DAILY 09/04/16 [History] Metoprolol XL (24 HR) Succ [Toprol Xl] 125 mg PO BID 09/04/16 [History] Docusate [Colace] 100 mg PO DAILY PRN #30 capsule 09/06/16 [Rx] Ferrous Sulfate 325 mg PO BIDWM #60 tablet 09/06/16 [Rx] Furosemide [Lasix] 40 mg PO DAILY #60 tab 09/06/16 [Rx] Albuterol Neb [Proventil Neb] 2.5 mg IH QID PRN 10/08/16 [History] Mometasone Furoate [Asmanex] 220 mcg IH BID 10/08/16 [History] Saw [place] Xtr/Zinc Picolin [Saw [place] Capsule] 1 each PO DAILY 10/08/16 [ History] Diltiazem CD (24hr) [Cardizem CD] 120 mg PO DAILY #30 cap.er.24h 10/12/16 [Rx] Digoxin [Lanoxin] 0.125 mg PO DAILY 01/15/17 [History] Lisinopril [Zestril] 10 mg PO BID 01/15/17 [History] Potassium Chloride [K-Tab ER] 10 meq PO BID 01/15/17 [History] Spironolactone [Aldactone] 25 mg PO DAILY 01/15/17 [History] Warfarin [Coumadin] 3 mg PO QAM 01/15/17 [History] Albuterol Sulfate [Proair Hfa] 1 puff IH TID PRN 04/27/17 [History] Bumetanide 2 mg PO BID 04/27/17 [History] Tolterodine LA (24 HR) [Detrol LA] 4 mg PO QPM 04/27/17 [History] acetaZOLAMIDE [Diamox] 125 mg PO QAM 04/27/17 [History] 3 Allergy/AdvReac Type Severity Reaction Status Date / Time No Known Allergies Allergy Verified 09/04/16 13:47 All Systems Reviewed: A 10-system review of systems was performed and is negative for pertinent findings except as documented above in the HPI. Physical Exam - Constitutional Vitals: Temp Pulse Resp BP Pulse Ox 97.6 F 67 16 128/71 97 04/28/17 06:38 04/28/17 06:38 04/28/17 06:38 04/28/17 06:38 04/28/17 06:38 Results - Labs Result Diagrams: 04/28/17 05:05 04/28/17 05:05 Labs: Abnormal lab results RDW 18.0 % (11.5-14.5) H 04/28/17 05:05 Plt Count 124 K/mcL (140-400) L 04/28/17 05:05 PT 36.2 Seconds (9.4-12.1) H 04/28/17 05:05 APTT 51.1 Seconds (26.0-36.0) H 04/28/17 05:05 Potassium 3.4 mEq/L (3.5-5.1) L 04/28/17 05:05 BUN 34 mg/dL (8-23) H 04/28/17 05:05 Creatinine 2.03 mg/dL (0.70-1.30) H 04/28/17 05:05 Est GFR ( Amer) 38 (> 60) L 04/28/17 05:05 Est GFR (Non-Af Amer) 31 (> 60) L 04/28/17 05:05 Alkaline Phosphatase 143 Units/L (34-104) H 04/28/17 05:05 Albumin 3.4 g/dL (3.5-5.7) L 04/28/17 05:05 H & H 04/28/17 Range/Units 05:05 Hgb 13.7 (12.9-16.9) g/dL Hct 41.0 (37.5-50.1) % All other labs normal. Consult Discharge Plan - Plan Referrals: Aliya Barba DO [Primary Care Provider] -
[2017-04-28] MEDS ORDERED: Diltiazem CD (24hr) 120 MG CAPSULE PO SCH (09:00)
[2017-04-28] MEDS ORDERED: Metoprolol XL (24 HR) Succ 50 MG TAB.ER.24H PO SCH (09:00)
[2017-04-28] MEDS ORDERED: Warfarin perPT PO SCH (09:00)
[2017-04-28] MEDS ORDERED: acetaZOLAMIDE 250 MG TABLET PO SCH (09:00)
[2017-04-28] MEDS ORDERED: Bumetanide 1 MG TABLET PO SCH (09:00)
[2017-04-28] MEDS: Gabapentin 300 MG CAPSULE PO SCH ×2 (10:27→14:14)
[2017-04-28 15:34] VITALS: BP 114/65
--- NOTE | 2017-04-28 15:55 | Discharge Summary ---
Date of Encounter: 04/28/17 Time of Encounter: 15:53 - Discharge Diagnosis (1) Right knee pain Priority: Primary Status: Acute Qualifiers: Chronicity: acute Qualified Code(s): M25.561 - Pain in right knee (2) Afib Priority: Secondary Status: Chronic Qualifiers: Atrial fibrillation type: chronic Qualified Code(s): I48.2 - Chronic atrial fibrillation (3) Hypertension Priority: Secondary Status: Chronic Qualifiers: Hypertension type: essential hypertension Qualified Code(s): I10 - Essential (primary) hypertension (4) Anemia Priority: Secondary Status: Chronic Qualifiers: Anemia type: iron deficiency Qualified Code(s): D50.9 - Iron deficiency anemia, unspecified (5) CAD (coronary artery disease) Priority: Secondary Status: Chronic Qualifiers: Coronary Disease-Associated Artery/Lesion type: unspecified vessel or lesion type [place] vs. transplanted heart: [place] heart Associated angina: without angina Qualified Code(s): I25.10 - Atherosclerotic heart disease of [place] coronary artery without angina pectoris (6) CHF (congestive heart failure) Priority: Secondary Status: Chronic Qualifiers: Congestive heart failure type: unspecified congestive heart failure type Congestive heart failure chronicity: acute Qualified Code(s): I50.9 - Heart failure, unspecified (7) COPD (chronic obstructive pulmonary disease) Priority: Secondary Status: Chronic Qualifiers: COPD type: chronic bronchitis Chronic bronchitis type: simple Qualified Code(s): J41.0 - Simple chronic bronchitis (8) CKD (chronic kidney disease) Priority: Secondary Status: Chronic Qualifiers: Chronic kidney disease stage: unspecified stage Qualified Code(s): N18.9 - Chronic kidney disease, unspecified - Discharge Medications Home Medications: Allopurinol [Zyloprim] 200 mg PO QAM 03/29/15 [History] Gabapentin [Neurontin] 300 mg PO TID 03/29/15 [History] Gluc/Heladio-MSM#1/C/Hans/Leonidas/Bor [Osteo Bi-Flex Caplet] 1 tab PO BID 03/29/15 [ History] Pravastatin Sodium [Pravachol] 20 mg PO HS 03/29/15 [History] Melatonin/Pyridoxine HCl (B6) [Melatonin 3 mg Tablet] 3 mg PO HS 08/15/16 [ History] Pantoprazole Sodium [Protonix] 40 mg PO DAILY 08/15/16 [History] hydrOXYzine HCl [Hydroxyzine HCl] 25 mg PO QPM 08/15/16 [History] Aspirin Enteric Coated [Aspirin EC] 81 mg PO DAILY 09/04/16 [History] Metoprolol XL (24 HR) Succ [Toprol Xl] 125 mg PO BID 09/04/16 [History] Docusate [Colace] 100 mg PO DAILY PRN #30 capsule 09/06/16 [Rx] Ferrous Sulfate 325 mg PO BIDWM #60 tablet 09/06/16 [Rx] Furosemide [Lasix] 40 mg PO DAILY #60 tab 09/06/16 [Rx] Albuterol Neb [Proventil Neb] 2.5 mg IH QID PRN 10/08/16 [History] Mometasone Furoate [Asmanex] 220 mcg IH BID 10/08/16 [History] Saw [place] Xtr/Zinc Picolin [Saw [place] Capsule] 1 each PO DAILY 10/08/16 [ History] Diltiazem CD (24hr) [Cardizem CD] 120 mg PO DAILY #30 cap.er.24h 10/12/16 [Rx] Digoxin [Lanoxin] 0.125 mg PO DAILY 01/15/17 [History] Lisinopril [Zestril] 10 mg PO BID 01/15/17 [History] Potassium Chloride [K-Tab ER] 10 meq PO BID 01/15/17 [History] Spironolactone [Aldactone] 25 mg PO DAILY 01/15/17 [History] Warfarin [Coumadin] 3 mg PO QAM 01/15/17 [History] Albuterol Sulfate [Proair Hfa] 1 puff IH TID PRN 04/27/17 [History] Bumetanide 2 mg PO BID 04/27/17 [History] Tolterodine LA (24 HR) [Detrol LA] 4 mg PO QPM 04/27/17 [History] acetaZOLAMIDE [Diamox] 125 mg PO QAM 04/27/17 [History] Acetaminophen [Tylenol] 650 mg PO Q8H PRN tablet 04/28/17 [Rx] Allergies/Adverse Reactions: 3 Allergy/AdvReac Type Severity Reaction Status Date / Time No Known Allergies Allergy Verified 09/04/16 13:47 Procedures/tests Complete & Pending: Procedures Performed prior 72 hours Category Date Time Status ECG 12 lead ECG [ECG] Stat Y 04/27/17 23:45 Ordered Date of admission: 04/27/17 19:50 Primary care physician: Henok Pathak Discharging clinician: Sarina Cyr - Patient Status Disposition: Home, Self-Care Condition: Fair Functional capacity at discharge: uses cane/walker Overall status at discharge: patient is progressing back to baseline - Discharge Instructions Follow Up With: Aliya Barba DO [Primary Care Provider] - - Diet and Activity Activity: ambulate only with your walker, increase activity as tolerated Diet: advance to your usual diet Interval History: Mr. Castanon is a 87 year old male with past medical history of CAD, atrial fibrillation, CK D, CHF, COPD or present to the ED with swelling right leg. Family noticed that the patient right leg becomes swelling since this morning. They concern that the patient might have a blood clot, so they sent the patient to the [facility]. Patient transferred from the [facility] for evaluation of DVT. Patient has had pain behind his knee for approximately 2 days. States that it got significantly worse today. Patient reports swelling and inability to bend and put weight on it. He states that he had fallen about 3 weeks ago. Was evaluated at the [facility] with head and neck CT which were negative. He is on anticoagulation with a INR of 2.8 today. His other blood work is unremarkable which was sent from the [facility]. At the ED, his vital signs were stable. Right knee CT looked as if he had a small fracture. Orthopedic Surgery team was consulted. He was admitted because he was unable to ambulate as before. Next day patient was able to ambulate with one assist and eventually able to walk with walker alone. Ortho Surgery reviewed CT and showed no fracture, it was chondral defect consistent with arthritis. He had no knee complication and he was neurovascularly intact. He was discharged home in stable condition to do weightbearing as tolerated. Hospital course: Mr. Castanon is a 87 year old male - Time Spent with Patient Total time spent providing and/or coordinating discharge services: - Constitutional Vitals: Temp Pulse Resp BP Pulse Ox 97.9 F 66 18 114/65 95 04/28/17 15:29 04/28/17 15:29 04/28/17 15:29 04/28/17 15:29 04/28/17 15:29 Exam: GENERAL APPEARANCE: The patient is alert, oriented and in no acute distress. HEENT: Head is normocephalic. The sinuses are nontender. Pupils are equal and reactive. The nares are patent. Oropharynx clear without lesions. NECK: Supple without lymphadenopathy. HEART: Regular rate and rhythm. LUNGS: No crackles or wheezes are heard. ABDOMEN: Soft, nontender, nondistended with good bowel sounds heard. Inguinal area is normal. EXTREMITIES: right knee moderately swelling, a knee immobilizer was applied. NEUROLOGICAL: Gross nonfocal.
[2017-04-28] MEDS ORDERED: Tolterodine LA (24 HR) 4 MG CAP.ER.24H PO SCH (18:00)
[2017-04-28] MEDS ORDERED: hydrOXYzine pamoate 25 MG CAPSULE PO SCH (18:00)
[2017-04-28] MEDS ORDERED: *HR* Warfarin 3 MG TABLET PO SCH (18:00)
[2017-04-28] MEDS ORDERED: Melatonin 3 MG TABLET PO SCH (21:00)
[2017-04-29] MEDS ORDERED: *HR* Warfarin 2 MG TABLET PO SCH (18:00)
--- NOTE | 2017-04-30 16:05 | Electrocardiograph Report ---
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
== END 2017-04-28 17:47 | disposition home or self-care (01) | DRG 554 ==
LOC: EMEROO 16:49 → 3NENU 19:50
PROVIDERS: ADMIT Internal Medicine; ATTEND Student in an Organized Health Care Education/Training Program